=== PATIENT | male | born 1945 | race Caucasian/White ===

== ENCOUNTER 2021-08-22 14:14 | Inpatient (IN) | payer MEDICARE, SELFPAY ==
[2021-08-22] VITALS (8 sets, daily range): BP systolic 113–159; BP diastolic 58–89; PULSE 69–111; RESP 18–39; TEMP 35.7–38.4; O2SAT 93–98; BMI 20.3; BMI 21.2
--- NOTE | ~2021-08-22 | XR_ITS ---
XR chest 2V DATE: 08/22/2021 14:45 INDICATION: Shortness of breath. Low oxygen saturation. Tobacco user, history of COPD. TECHNIQUE: AP and lateral views COMPARISON: 12/15/2018 portable AP chest 12/11/2018 CT pulmonary scan FINDINGS: There is prominent bilateral pulmonary hyperinflation with flattening the diaphragm and inc reased retrosternal airspace, consistent with COPD. There is patchy infiltrate in the left lower lobe retrocardiac area and right basilar infiltrate and/ or atelectasis. Consider bilateral pneumonia, aspiration pneumonitis. The remaining lung gaytan are clear of consolidation. No pleural effusion or pulmonary vascular congestion or pneumothorax is detected. Normal heart size. There is aortic calcification and unfolding. Diffuse osteopenia. IMPRESSION: Left lower lobe and right basilar infiltrates and/atelectasis; consider bilateral pneumon ia, as well as aspiration pneumonitis Prominent COPD Reviewed, dictated and finalized at location A. LE PET GROOMER IMPRESSION: Left lower lobe and right basilar infiltrates and/atelectasis; cons ider bilateral pneumonia, as well as aspiration pneumonitis Prominent COPD
--- NOTE | 2021-08-22 14:23 | ECG_ITS ---
Measurements Intervals [place] Rate: 107 P: 90 [place]: 139 QRS: -49 QRSD: 78 T: 73 QT: 334 QTc: 447 Interpretive Statements SINUS TACHYCARDIA LEFT ANTERIOR FASCICULAR BLOCK CANNOT RULE OUT SEPTAL INFARCT, AGE INDETERMINATE BASELINE ARTIFACT- I, II, III, AVR, AVL, V3-V6 ABNORMAL ECG Electronically Signed On 08-23-2021 11:22:27 NANOTECHNOLOGY ENGINEERING TECHNOLOGIST by Pepe Dan D.O.
[2021-08-22 14:38] LABS: Basophils Percent Auto 0.2 % (0.2-1.2); Hematocrit 47.4 % (42.0-52.0); Hemoglobin 16.2 g/dL (14.0-18.0); Lymphocytes Absolute Auto 0.99 K/mm3 (0.9-3.2); Lymphocytes Percent Auto 9.9 % (18.3-44.2); Mean Corpuscular HGB Conc 34.2 g/dl (32-36); Mean Corpuscular Hemoglobin 29.1 pg (26-34); Mean Corpuscular Volume 85.1 fl (80-100); Mean Platelet Volume 9.9 fl (7.4-10.4); Monocytes Absolute Auto 0.7 K/mm3 (0.1-0.6); Monocytes Percent Auto 6.6 % (2.6-8.5); Neutrophils Absolute Auto 8.2 K/mm3 (1.3-6.7); Neutrophils Percent Auto 82.3 % (45.5-73.1); Platelet Count Result 252 k/mm3 (150-375); Red Blood Count 5.57 M/mm3 (4.6-6.20); Red Cell Distribution Width 14.6 % (11.5-14.5)
[2021-08-22 14:45] LABS: Lactic Acid Reflex 1.7 mmol/L (0.7-2.1)
[2021-08-22 14:47] LABS: Alanine Aminotransferase 30 U/L (4-50); Albumin Level 4.4 g/dL (3.5-5.1); Alkaline Phosphatase 91 U/L (38-126); Anion Gap 9 mmol/L (8-16); Aspartate Amino Transferase 42 U/L (17-59); Bilirubin,Total 0.9 mg/dL (0.2-1.3); Blood Urea Nitrogen 44 mg/dL (9-20); Calcium 9.5 mg/dL (8.4-10.2); Carbon Dioxide 33 mmol/L (22-30); Chloride 94 mmol/L (98-107); Estimated CRCL calculation 38 ml/min; Estimated Glomerular Filt Rate 50; Glucose 120 mg/dL (65-110); Potassium 3.9 mmol/L (3.4-5.0); Sodium 136 mmol/L (137-145)
--- NOTE | 2021-08-22 15:42 | ED.GENADULT ---
HPI - General Adult General Chief complaint: Shortness of Breath/Dyspnea Stated complaint: sob Time Seen by Provider: 08/22/21 15:24 Source: patient and family Limitations: no limitations History of Present Illness HPI narrative: 75 years old white male presents with shortness of breath over the last few days, productive cough of colored sputum, generalized weakness, poor appetite, does not take his medication lately. Patient is not vaccinated for COVID, history of COPD, smoking. Patient is DNR. Related Data Home Medications Medication Instructions Recorded Confirmed famotidine 20 mg tablet 20 mg PO DAILY 05/21/20 09/23/20 Allergies Allergy/AdvReac Type Severity Reaction Status Date / Time No Known Allergies Allergy Verified 05/28/21 11:30 Review of Systems Review of Systems: CONSTITUTIONAL: Denies fever, chills, or sweats. EYES: Denies visual changes, redness, or discharge. ENT: Denies rhinorrhea, congestion, sore throat, or otalgia. CARDIOVASCULAR: Denies chest pain, palpitations, or edema. RESPIRATORY: Denies cough or dyspnea. GASTROINTESTINAL: Denies abdominal pain, nausea, vomiting, or diarrhea. GENITOURINARY: Denies dysuria or hematuria. SKIN: Denies rash or itching. MUSCULOSKELETAL: Denies back pain, joint pain, or myalgia. NEUROLOGIC: Denies headache, numbness, or weakness. PSYCHIATRIC: Denies anxiety or depression. PMFSH Past Medical History Medical History Acute respiratory failure COPD (chronic obstructive pulmonary disease) Essential (primary) hypertension GERD without esophagitis History of kidney stones Pneumonia Tobacco abuse Social History Social History Smoking packs per day: 1 Smoking cigarettes per day: 20.0 Years smoked: 50 Smoking pack-years: 50.00 Smoking status: Current every day smoker (does not want to quit, and does not want to talk about it; 50 years 1 ppd) Tobacco type: cigarettes Second hand tobacco smoke exposure: Yes Alcohol intake: never Substance use: never Substance use type: does not use Exam Narrative: General appearance: Well-developed, well-nourished Skin: Normal color Head: Normocephalic, nontraumatic Eyes: Clear conjunctiva ENT: Oropharynx normal, ears normal, nose normal Neck: Supple, nontender Chest and respiratory: Diminution of air entry bilaterally, basal rales bilaterally Heart: Regular rate/rhythm Abdomen: Soft, nontender, no organomegaly, quiet bowel sounds Vascular: Normal peripheral pulses, normal capillary refill. Musculoskeletal: Normal range of motion, nontender back Neurologic: Alert and oriented ?3, REPORTING MANAGER is normal as tested, no gross motor deficit Course Course Emergency Course: Stable Vital Signs Vital signs: Vital Signs Temperature 38.4 C H 08/22/21 14:19 Pulse Rate 111 H 08/22/21 14:19 Respiratory Rate 39 H 08/22/21 14:19 Blood Pressure 159/89 H 08/22/21 14:19 Pulse Oximetry 95 08/22/21 14:19 Temperature 38.4 C H 08/22/21 14:19 Pulse Rate 88 08/22/21 15:55 Respiratory Rate 20 08/22/21 15:55 Blood Pressure 159/89 H 08/22/21 14:19 Pulse Oximetry 95 08/22/21 14:19 Medical Decision Making [facility] Narrative Medical decision making narrative: Work-up showed pneumonia, high likely community-acquired. Patient is not vaccinated for COVID, Covid test ordered. Differential Diagnosis Differential Diagnosis: Pneumonia, COPD exacerbation, Vital Signs Vital Signs: Vital Signs Temperature 38.4 C H 08/22/21 14:19 Pulse Rate 111 H 08/22/21 14:19 Respiratory Rate 39 H 08/22/21 14:19 Blood Pressure 159/89 H 07/26
[2021-08-22] MEDS: methylPREDNISolone SOD SUCC 125 MG VIAL 62.5 MG IV PUSH (15:48)
[2021-08-22] MEDS: ALBUTEROL SULFATE NEB 2.5 MG/0.5 ML INH 5 MG INHALATION (15:55)
[2021-08-22] MEDS: IPRATROPIUM BR 0.02% INH SOLN 0.5 MG/2.5 ML VIAL INHALATION (15:55)
[2021-08-22 16:00] LABS: Alveolar/Arterial O2 Gradient 65.5 mmHg; Base Excess ABG 6.1 mEq/l (+/-2.0); Fractional Inspired Oxygen 21 %; HCO3 ABG 27.8 mEq/l (22.0-26.0); Oxygen Content ABG 17.8 %vol (16.0-22.0); Oxygen Saturation ABG 88.2 % (95.0-100.0); PCO2 ABG 31.8 mmHg (35.0-45.0); Total Hemoglobin 15.2 g/dL (12.0-18.0)
[2021-08-22 16:02] LABS: PO2 ABG 46.2 mmHg (80.0-100.0)
[2021-08-22 16:03] LABS: Device ROOM AIR; Modified Allen's Test Pass; Oxyhemoglobin 83.7 % THb (90.0-100.0); Site Drawn RIGHT RADIAL
[2021-08-22] MEDS: ONDANSETRON INJ 4 MG/2 ML VIAL IV PUSH (16:22)
[2021-08-22] MEDS: SODIUM CHLORIDE 0.9% IV 1,000 ML 999 ML IV CONT (16:22)
[2021-08-22 16:55] LABS: SARS-CoV-2 RNA PCR Positive
--- NOTE | 2021-08-22 17:06 | PC.NURSE ---
Diamond, daughter to contact. [phone]
[2021-08-22] MEDS: SODIUM CHLORIDE 0.9% IV 1,000 ML 125 ML IV CONT (18:39)
--- NOTE | 2021-08-22 19:30 | PC.NURSE ---
Assumed care of pt at this time. Pt alert and upright on stretcher, on 2L NC. Updated on POC, No request at this time.
--- NOTE | 2021-08-22 19:55 | PM.IMHP ---
H&P: HPI History of Present Illness Date/Time: 08/22/21 19:55 this is a 75-year-old male patient has a history of COPD and continues to smoke a pack a cigarettes a day. The patient does not wear oxygen at home and does not use inhalers or nebulizers at home. The patient stated that he had a tactile fever with generalized weakness and a poor appetite. The patient feels very fatigued. He does not take any home medications. The patient is not vaccinated for COVID. Chest x-ray was read as left lower lobe and right basilar infiltrates and/or atelectasis consider bilateral pneumonia as well as aspiration pneumonitis. ABGs pH 7.560. Sodium 136. Creatinine 1.4. Patient was positive for COVID-19. The patient was initially started on azithromycin and Rocephin for pneumonia. He was given nebulizer treatments and started on Solu-Medrol. Patient also had IV fluids that I stopped. I did start remdesivir and Decadron on the patient. The patient was hypoxic down to 93 and was started on oxygen at 2 L per nasal cannula. The patient is being admitted to inpatient status on 08/22/2021. Chief Complaint: Shortness of breath Review of Systems Review of Systems: All systems reviewed & are unremarkable except as noted in HPI and below Constitutional: Constitutional: Reports as per HPI and Reports no additional constitutional complaints Eyes: Eyes: Reports as per HPI and Reports no additional eye complaints ENT: Reports system reviewed and no additional complaints, except as documented and Reports Normal hearing present Cardiovascular: Cardiovascular: Reports no additional cardiovascular complaints Respiratory: Respiratory: Reports no additional respiratory complaints and Reports no additional respiratory complaints Gastrointestinal: Gastrointestinal: Reports as per HPI and Reports no additional gastrointestinal complaints Musculoskeletal: Musculoskeletal: Reports no additional musculoskeletal complaints Integumentary/Breasts: Skin/Breast: Reports system reviewed and no additional complaints, except as docu and Reports as per HPI Neurologic: Reports system reviewed and no additional complaints, except as documented, Reports as per HPI and Reports Normal hearing present Psychiatric: Psychiatric: Reports no additional psychiatric complaints and Reports as per HPI Endocrine: Endocrine: Reports no additional endocrine complaints Hematologic/Lymphatic: Hematologic/Lymphatic: Reports no additional hematologic/lymphatic complaints Allergic/Immunologic: Allergic/Immunologic: Reports no additional allergic/immunologic complaints [facility] Past Medical History Medical History Acute respiratory failure COPD (chronic obstructive pulmonary disease) Essential (primary) hypertension GERD without esophagitis History of kidney stones Pneumonia Tobacco abuse Surgical History Surgical History H/O cataract extraction Family History Family History Mother Excessive bleeding Cancer Social History Social History (Updated 08/22/21 @ 21:08 by Cyndee Martinez NP) Social History: He lives with and she is his durable power patent prosecution attorney for healthcare. He has 4 children. He is retired from being a medical instruction for medical students. He continues to smoke at least a pack a cigarettes a day and is not interested in smoking cessation. He does not use any alcohol marijuana or illicit drugs. Code status DNR Smoking packs per day: 1 Smoking cigarettes per day: 20.0 Years smoked: 50 Smoking pack-years: 50.00 Smoking status: Current every day smoker (does not want to quit, and does not want to talk about it; 50 years 1 ppd) Tobacco type: cigarettes Second hand tobacco smoke exposure: Yes Alcohol intake: never Substance use: never Substance use type: does not use
[2021-08-22] MEDS: REMDESIVIR 200 MG/NS 250 ML 200 MG/250 ML BAG 250 MG IVPB (21:40)
--- NOTE | 2021-08-22 22:11 | ADMGEN ---
This patient, Murali Koenig, was admitted to [facility] Surg Room 328-01. Patient/family oriented to hospital policies and general routines including ID bracelet, bed and alarms, visiting hours, pain management, procedures, bathroom and other care routines, personal items, smoking policy, room service/diet, and visiting hours. Information on how to activate the Rapid Response Team has been discussed. Patient/Family are encouraged to report perceived risks to care and to ask questions if they do not understand what they are told or what they should do.
[2021-08-22 23:36] LABS: Alanine Aminotransferase 23 U/L (4-50); Estimated CRCL calculation 44 ml/min; Estimated Glomerular Filt Rate 59
[2021-08-22 23:40] LABS: Prothrombin Time 13.5 Seconds (11.1-14.7)
[2021-08-23] VITALS (11 sets, daily range): BP systolic 108–112; BP diastolic 47–56; PULSE 50–64; RESP 16–18; TEMP 35.7–36.3; O2SAT 94–99
[2021-08-23 07:24] LABS: Basophils Percent Auto 0.4 % (0.2-1.2); Hematocrit 41.5 % (42.0-52.0); Hemoglobin 13.7 g/dL (14.0-18.0); Immature Granulocyte Absolute 0.07 K/mm3 (0.00-0.031); Immature Granulocyte Percent A 1.3 % (0-0.5); Lymphocytes Absolute Auto 0.75 K/mm3 (0.9-3.2); Lymphocytes Percent Auto 13.5 % (18.3-44.2); Mean Corpuscular Hemoglobin 28.1 pg (26-34); Mean Corpuscular Volume 85.2 fl (80-100); Mean Platelet Volume 10.6 fl (7.4-10.4); Monocytes Absolute Auto 0.2 K/mm3 (0.1-0.6); Monocytes Percent Auto 2.9 % (2.6-8.5); Neutrophils Absolute Auto 4.6 K/mm3 (1.3-6.7); Neutrophils Percent Auto 81.9 % (45.5-73.1); Platelet Count Result 237 k/mm3 (150-375); Red Blood Count 4.87 M/mm3 (4.6-6.20); Red Cell Distribution Width 14.6 % (11.5-14.5); White Blood Count 5.6 K/mm3 (4.5-10.0)
[2021-08-23 07:29] LABS: INR 1.1; Prothrombin Time 13.9 Seconds (11.1-14.7)
[2021-08-23 07:30] LABS: Lactic Acid Reflex 1.1 mmol/L (0.7-2.1)
[2021-08-23 07:38] LABS: Alanine Aminotransferase 23 U/L (4-50); Albumin Level 3.3 g/dL (3.5-5.1); Alkaline Phosphatase 63 U/L (38-126); Anion Gap 5 mmol/L (8-16); Aspartate Amino Transferase 30 U/L (17-59); Bilirubin,Total 0.5 mg/dL (0.2-1.3); Blood Urea Nitrogen 44 mg/dL (9-20); Calcium 8.5 mg/dL (8.4-10.2); Carbon Dioxide 32 mmol/L (22-30); Chloride 100 mmol/L (98-107); Estimated CRCL calculation 52 ml/min; Estimated Glomerular Filt Rate > 60; Glucose 130 mg/dL (65-110); Lactate Dehydrogenase 456 U/L (313-618); Lipase 57 U/L (23-300); Magnesium 2.4 mg/dL (1.6-2.3); Potassium 3.7 mmol/L (3.4-5.0); Sodium 137 mmol/L (137-145)
[2021-08-23 08:02] LABS: Thyroid Stimulating Hormone Reflex 0.197 uIU/mL (0.465-4.68)
[2021-08-23 08:29] LABS: Free T4 Free Thyroxine Reflex 1.76 ng/dL (0.78-2.19)
[2021-08-23] MEDS: FLUTICASONE/UMECLIDIN/VILANTER 100-62.5-25 MCG ELLIPTA 1 PUFF INHALATION (08:40)
[2021-08-23] MEDS: ENOXAPARIN 40 MG/0.4 ML SYRINGE SUB-Q (08:45)
[2021-08-23] MEDS: FAMOTIDINE 20 MG TABLET PO (08:45)
[2021-08-23] MEDS: hydroCHLOROthiazide 25 MG TABLET BY MOUTH (08:46)
[2021-08-23 09:28] LABS: Total Triiodothyronine (T3) 0.87 NG/ML (0.97-1.69)
--- NOTE | 2021-08-23 11:31 | PCCCNOTE ---
On 08/23/21, the student, [Briana Sosa], provided care and completed [facility] on this patient. I have reviewed the student's documentation and agree with the findings.
--- NOTE | 2021-08-23 16:37 | PM.IMPN ---
Progress Note: A&P Assessment and Plan (1) COVID: Code(s): U07.1 - COVID-19 Status: Acute Assessment and Plan: I did start the patient on Decadron oxygen and albuterol inhaler. (2) Pneumonia: Qualifiers: Laterality: bilateral Lung location: unspecified part of lung Pneumonia type: due to unspecified organism Qualified Code(s): J18.9 - Pneumonia, unspecified organism Code(s): J18.9 - Pneumonia, unspecified organism Status: Acute Assessment and Plan: Patient initially was started on azithromycin and Rocephin for the possibility of a bacterial pneumonia. However the patient tested positive for COVID-19. (3) COPD (chronic obstructive pulmonary disease): Qualifiers: COPD type: unspecified COPD Qualified Code(s): J44.9 - Chronic obstructive pulmonary disease, unspecified Code(s): J44.9 - Chronic obstructive pulmonary disease, unspecified Status: Acute Assessment and Plan: Continue with patient's home inhalers. Add albuterol inhaler as well. Pt is a smoker does not want nicotine patch (4) Tobacco abuse: Code(s): Z72.0 - Tobacco use Status: Acute Assessment and Plan: We discussed smoking cessation for approximately 5 minute and the patient is not interested in any smoking cessation at this time. (5) Essential (primary) hypertension: Code(s): I10 - Essential (primary) hypertension Status: Acute Assessment and Plan: Continue with home medication. Subjective Date/time seen: 08/23/21 16:37 Interval history: 75-year-old male patient has a history of COPD and continues to smoke a pack a cigarettes a day. The patient does not wear oxygen at home and does not use inhalers or nebulizers at home. The patient stated that he had a tactile fever with generalized weakness and a poor appetite. The patient feels very fatigued. He does not take any home medications. The patient is not vaccinated for COVID. Chest x-ray was read as left lower lobe and right basilar infiltrates and/or atelectasis consider bilateral pneumonia as well as aspiration pneumonitis. ABGs pH 7.560. Sodium 136. Creatinine 1.4. Patient was positive for COVID-19 08/23/2021: pt is feeling better on 2 liters of oxygen pt is a heavy smoker but he garcia not want a nicotine patch Review of Systems Review of Systems: All systems reviewed & are unremarkable except as noted in HPI and below Exam Const: General: tired appearing and other (Fatigued on 2 liters of oxygen ) HENMT: Head: normal to inspection Resp: Effort & Inspection: no respiratory distress Auscultation: no rhonchi and no wheezes Cardio: Rate: regular rate Rhythm: regular rhythm GI: Inspection: normal to inspection GI Palp: No abdominal tenderness, No Guarding due to palpation present (GI) and No Hepatomegaly present Auscultation: normal bowel sounds Neuro: General: oriented to person Objective Data Vital Signs Vital Signs: Vital Signs - 24 hr 08/22/21 17:07 08/22/21 18:09 08/22/21 19:30 Temperature 36.9 C Pulse Rate 90 86 75 Respiratory Rate 18 25 H 26 H Blood Pressure 118/62 113/74 114/61 Pulse Oximetry 95 98 98 08/22/21 22:00 08/23/21 00:00 08/23/21 04:42 Temperature 35.7 C L 36.2 C L Pulse Rate 69 64 Respiratory Rate 18 16 Blood Pressure 116/58 L 108/47 L Pulse Oximetry 93 94 94 08/23/21 05:01 08/23/21 08:00 08/23/21 12:30 Temperature 35.7 C L 35.9 C L 36.3 C L Pulse Rate 57 L 56 L 59 L Respiratory Rate 16 18 18 Blood Pressure 108/54 L 109/54 L 112/54 L Pulse Oximetry 98 94 99 Intake/Output Intake/Output: Intake & Output 08/20/21 08/21/21 08/22/21 08/23/21 23:59 23:59 23:59 23:59 Intake Total 1300 580 Output Total 425 Balance 1300 155 Meds/Results Medications: Active Medications Generic Name Dose Route Start Last Admin Trade Name Freq PRN Reason Stop Dose Admin Albuterol 2 puff 08/22/21 19:55 Albuterol Sulfate
[2021-08-24] VITALS (15 sets, daily range): BP systolic 106–126; BP diastolic 54–64; PULSE 52–76; RESP 15–18; TEMP 36–37; O2SAT 86–98
[2021-08-24] MEDS: REMDESIVIR 100 MG/NS 250 ML 100 MG/250 ML BAG 250 MG IVPB (00:09)
[2021-08-24 07:09] LABS: Alanine Aminotransferase 22 U/L (4-50); Estimated CRCL calculation 57 ml/min; Estimated Glomerular Filt Rate > 60
[2021-08-24 07:22] LABS: INR 1.1; Prothrombin Time 14.5 Seconds (11.1-14.7)
[2021-08-24] MEDS: ENOXAPARIN 40 MG/0.4 ML SYRINGE SUB-Q (08:53)
[2021-08-24] MEDS: hydroCHLOROthiazide 25 MG TABLET BY MOUTH (08:53)
[2021-08-24] MEDS: FAMOTIDINE 20 MG TABLET PO (08:53)
--- NOTE | 2021-08-24 16:26 | PM.IMPN ---
Progress Note: A&P Assessment and Plan (1) COVID: Code(s): U07.1 - COVID-19 Status: Acute Assessment and Plan: I did start the patient on Decadron oxygen and albuterol inhaler. (2) Pneumonia: Qualifiers: Laterality: bilateral Lung location: unspecified part of lung Pneumonia type: due to unspecified organism Qualified Code(s): J18.9 - Pneumonia, unspecified organism Code(s): J18.9 - Pneumonia, unspecified organism Status: Acute Assessment and Plan: Patient initially was started on azithromycin and Rocephin for the possibility of a bacterial pneumonia. However the patient tested positive for COVID-19. (3) COPD (chronic obstructive pulmonary disease): Qualifiers: COPD type: unspecified COPD Qualified Code(s): J44.9 - Chronic obstructive pulmonary disease, unspecified Code(s): J44.9 - Chronic obstructive pulmonary disease, unspecified Status: Acute Assessment and Plan: Continue with patient's home inhalers. Add albuterol inhaler as well. Pt is a smoker does not want nicotine patch (4) Tobacco abuse: Code(s): Z72.0 - Tobacco use Status: Acute Assessment and Plan: We discussed smoking cessation for approximately 5 minute and the patient is not interested in any smoking cessation at this time. (5) Essential (primary) hypertension: Code(s): I10 - Essential (primary) hypertension Status: Acute Assessment and Plan: Continue with home medication. Subjective Date/time seen: 08/24/21 16:26 Interval history: 75-year-old male patient has a history of COPD and continues to smoke a pack a cigarettes a day. The patient does not wear oxygen at home and does not use inhalers or nebulizers at home. The patient stated that he had a tactile fever with generalized weakness and a poor appetite. The patient feels very fatigued. He does not take any home medications. The patient is not vaccinated for COVID. Chest x-ray was read as left lower lobe and right basilar infiltrates and/or atelectasis consider bilateral pneumonia as well as aspiration pneumonitis. ABGs pH 7.560. Sodium 136. Creatinine 1.4. Patient was positive for COVID-19 08/23/2021: pt is feeling better on 2 liters of oxygen pt is a heavy smoker but he garcia not want a nicotine patch 08/24/2021 interval history: patient with history of COPD now COVID positive patient is being treated with dexamethasone and remdesivir, patient is requiring 2 L of oxygen, patient states feeling much better, not a short of breath as when he arrived, patient remains clinically stable, will continue present managed and will monitor. Review of Systems Review of Systems: All systems reviewed & are unremarkable except as noted in HPI and below Exam Narrative: Patient is comfortable, NAD HEENT: eyes are clear and none icteric LUNGS: normal respiratory effort ABD: not distended Lower extremities: no edema SKIN: nonjaundiced Neuro: grossly intact. Objective Data Vital Signs Vital Signs: Vital Signs - 24 hr 08/23/21 17:00 08/23/21 19:18 08/23/21 20:00 Temperature 97.1 F L Pulse Rate 53 L 55 L 50 L Respiratory Rate 18 Blood Pressure 108/56 L Pulse Oximetry 99 98 08/23/21 20:01 08/23/21 20:56 08/23/21 23:30 Temperature 97.0 F L Pulse Rate 55 L Respiratory Rate 17 Blood Pressure 111/53 L Pulse Oximetry 98 98 96 08/24/21 00:00 08/24/21 04:00 08/24/21 04:36 Temperature 96.8 F L 98.6 F Pulse Rate 53 L 76 54 L Respiratory Rate 17 15 Blood Pressure 106/54 L 106/55 L Pulse Oximetry 96 96 08/24/21 05:37 08/24/21 08:00 08/24/21 08:40 Temperature 97.4 F L Pulse Rate 64 Respiratory Rate 18 Blood Pressure 123/64 Pulse Oximetry 96 95 96 08/24/21 09:00 08/24/21 09:05 08/24/21 09:09 Temperature Pulse Rate Respiratory Rate Blood Pressure Pulse Oximetry 90 86 L 90 08/24/21 12:00 Temperature 97.5 F L Pulse
[2021-08-25] VITALS (9 sets, daily range): BP systolic 128–139; BP diastolic 56–73; PULSE 58–92; RESP 15–16; TEMP 36.1–36.2; O2SAT 89–93
[2021-08-25 07:23] LABS: INR 1.2
[2021-08-25 08:18] LABS: Alanine Aminotransferase 36 U/L (4-50); Estimated CRCL calculation 57 ml/min; Estimated Glomerular Filt Rate > 60
[2021-08-25] MEDS: FAMOTIDINE 20 MG TABLET PO (09:18)
[2021-08-25] MEDS: ENOXAPARIN 40 MG/0.4 ML SYRINGE SUB-Q (09:18)
[2021-08-25] MEDS: hydroCHLOROthiazide 25 MG TABLET BY MOUTH (09:18)
--- NOTE | 2021-08-25 11:51 | PM.DS ---
DS: Admitting Diagnosis Discharge Date shortness of breath Admitting Diagnosis 08/25/2021 DS: Discharge Diagnosis Discharge Diagnosis (1) COVID: Code(s): U07.1 - COVID-19 Status: Acute Assessment and Plan: I did start the patient on Decadron oxygen and albuterol inhaler. (2) Pneumonia: Qualifiers: Laterality: bilateral Lung location: unspecified part of lung Pneumonia type: due to unspecified organism Qualified Code(s): J18.9 - Pneumonia, unspecified organism Code(s): J18.9 - Pneumonia, unspecified organism Status: Acute Assessment and Plan: Patient initially was started on azithromycin and Rocephin for the possibility of a bacterial pneumonia. However the patient tested positive for COVID-19. (3) COPD (chronic obstructive pulmonary disease): Qualifiers: COPD type: unspecified COPD Qualified Code(s): J44.9 - Chronic obstructive pulmonary disease, unspecified Code(s): J44.9 - Chronic obstructive pulmonary disease, unspecified Status: Acute Assessment and Plan: Continue with patient's home inhalers. Add albuterol inhaler as well. Pt is a smoker does not want nicotine patch (4) Tobacco abuse: Code(s): Z72.0 - Tobacco use Status: Acute Assessment and Plan: We discussed smoking cessation for approximately 5 minute and the patient is not interested in any smoking cessation at this time. (5) Essential (primary) hypertension: Code(s): I10 - Essential (primary) hypertension Status: Acute Assessment and Plan: Continue with home medication. DS: Summary Hospital Course Reason for hospitalization: this is a 75-year-old male patient has a history of COPD and continues to smoke a pack a cigarettes a day. The patient does not wear oxygen at home and does not use inhalers or nebulizers at home. The patient stated that he had a tactile fever with generalized weakness and a poor appetite. The patient feels very fatigued. He does not take any home medications. The patient is not vaccinated for COVID. Chest x-ray was read as left lower lobe and right basilar infiltrates and/or atelectasis consider bilateral pneumonia as well as aspiration pneumonitis. ABGs pH 7.560. Sodium 136. Creatinine 1.4. Patient was positive for COVID-19. The patient was initially started on azithromycin and Rocephin for pneumonia. He was given nebulizer treatments and started on Solu-Medrol. Patient also had IV fluids that I stopped. I did start remdesivir and Decadron on the patient. The patient was hypoxic down to 93 and was started on oxygen at 2 L per nasal cannula. The patient is being admitted to inpatient status on 08/22/2021. Chief Complaint: Shortness of breath Hospital Course: 08/24/2021 interval history: patient with history of COPD now COVID positive patient is being treated with dexamethasone and remdesivir, patient is requiring 2 L of oxygen, patient states feeling much better, not a short of breath as when he arrived, patient remains clinically stable, will continue present managed and will monitor. patient remains clinically stable he is not requiring any oxygen, he does not have any fever will discharge the patient home today. Time Spent with Patient Time attestation: Total time spent providing and/or coordinating discharge services: Exam Narrative: Patient is comfortable, NAD HEENT: eyes are clear and none icteric LUNGS: normal respiratory effort ABD: not distended Lower extremities: no edema SKIN: nonjaundiced Neuro: grossly intact. DS: Data Data Completed and Pending Labs on day of discharge: Labs from last 24 hours 08/25/21 08/25/21 06:44 06:44 PT 15.0 H INR 1.2 Creatinine 0.90 Estim Creat Clear Calc 57 Estimated GFR > 60 ALT 36 Preliminary micro results at discharge 08/22/21 14:29 Blood Culture - Preliminary Blood 08/22/21 14:40 Blood Culture - Preliminary Bloo
--- NOTE | 2021-08-25 11:51 | HOMEO2EVAL ---
Evaluation was performed at [facility] Home Oxygen Evaluation RC: Home Oxygen (O2) Evaluation Start: 08/25/21 10:27 Freq: ONCE Status: Active Protocol: RPE Activity Type Activity Date Activity User E-Sign Co-Sign Detail Recorded Client Recorded Date Recorded By Document 08/25/21 11:45 KRM [id number] 08/25/21 11:51 KRM Document 08/25/21 11:46 KRM [id number] 08/25/21 11:51 KRM Document 08/25/21 11:49 KRM [email or web address] 08/25/21 11:51 KRM 08/25/21 08/25/21 08/25/21 11:45 11:46 11:49 Home O2 Evaluation Test Phase Resting Exercise Exercise Oxygen Delivery Room Air Room Air Room Air Pulse Oximetry (90-100 %) 91 90 89 L Pulse Rate (60-100 beats/min) 78 79 80 Activity Tolerance Good Good Treatment Charges O2 Evaluation - Inpatient
== END 2021-08-25 15:30 | disposition home or self-care (01) | DRG 177 ==
LOC: ANHED 15:52 → ANH3MEDSUR 08-23 00:09
PROVIDERS: Nurse Practitioner; Admitting Provider Hospitalist; Emergency Provider Emergency Medicine; PCP Family Medicine; Visit Provider Family Medicine
DX: U07.1 COVID-19 (principal); J12.82 Pneumonia due to coronavirus disease 2019; J44.0 Chronic obstructive pulmonary disease with (acute) lower respiratory infection; R09.02 Hypoxemia; I10 Essential (primary) hypertension; K21.9 Gastro-esophageal reflux disease without esophagitis; F17.210 Nicotine dependence, cigarettes, uncomplicated; Z66 Do not resuscitate
CPT/HCPCS: 36415; 36600; 71046; 80053; 82565; 82728; 82805; 83605; 83615; 83690; 83735; 84439; 84443; 84460; 84480; 85025; 85610; 87040; 93005; 94618; 94640; 99285; A9270; C9803; J0456; J0696; J1100; J1650; J2405; J2930; J7030; U0003; U0005

== ENCOUNTER 2022-11-10 08:29 | Outpatient (CLI) | payer MEDICARE, SELFPAY | END 2022-11-10 08:30 | disposition home or self-care (01) | LOC: ANHGOSHLAB 08:30 | PROVIDERS: PCP Family Medicine; Visit Provider Family Medicine | DX: E53.8 Deficiency of other specified B group vitamins (principal) | CPT/HCPCS: 36415; 82607 ==

== ENCOUNTER 2023-06-27 16:23 | Emergency (ER) | payer MEDICARE, SELFPAY ==
--- NOTE | ~2023-06-27 | XR_ITS ---
EXAMINATION: XR chest 1V portable Exam Date/Time: 06/27/2023 22:25 [employer] HISTORY: cough, SOB Comparison: 08/22/2021. RESULT: Lines, tubes, and devices: None. Lungs and pleura: Emphysematous changes. Ill-defined hazy subsegmental opacities in the left lower l gloria. Cardiomediastinal silhouette: Stable. Other: No acute osseous or upper abdominal finding. IMPRESSION: Subsegmental left lower lung atelectasis or consolidation. Reviewed, dictated and finalized at location [facility]. 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
[2023-06-27 16:32] VITALS: BP 170/82; PULSE 86; RESP 20; TEMP 36.2; O2SAT 96
--- NOTE | 2023-06-27 21:26 | ED.SOB ---
HPI - SOB/Dyspnea General Chief Complaint: Shortness of Breath/Dyspnea Stated Complaint: SHORT OF BREATH X4DAYS Time Seen by Provider: 06/27/23 21:18 History of Present Illness HPI Narrative: Patient is a 77-year-old male with history of COPD, hypertension presenting with shortness of breath. Patient states that he has had increasing shortness of breath as well as a productive cough for the last 3-4 days. States that it feels like his COPD. He has been using his inhalers with temporary improvement. States that the last time this happened it turned into pneumonia so he did not want to wait that long this time. He denies any pain. No leg swelling. No fevers or chills. No nausea or vomiting. No further complaints. Related Data Home Medications Medication Instructions Recorded Confirmed famotidine 20 mg tablet (Pepcid AC) 20 mg PO DAILY PRN 10/03/22 06/01/23 Allergies Allergy/AdvReac Type Severity Reaction Status Date / Time No Known Allergies Allergy Verified 06/01/23 09:09 Review of Systems Review of Systems: All systems reviewed & are unremarkable except as noted in HPI and below PMFSH Past Medical History Medical History Acute respiratory failure (~04/2020) B12 deficiency COPD (chronic obstructive pulmonary disease) Essential (primary) hypertension GERD without esophagitis History of COVID-19 (~08/2021) History of kidney stones Tobacco abuse Surgical History Surgical History H/O cataract extraction (~2018) Family History Family History Mother Excessive bleeding Cancer Social History Social History Social History: He lives with and she is his durable power ip attorney for healthcare. He has 4 children. He is retired from being a medical instruction for medical students. He continues to smoke at least a pack a cigarettes a day and is not interested in smoking cessation. He does not use any alcohol marijuana or illicit drugs. Code status DNR Smoking packs per day: 1 Smoking cigarettes per day: 20.0 Years smoked: 50 Smoking pack-years: 50.00 Smoking status: Current every day smoker Second hand tobacco smoke exposure: Yes Alcohol intake: never Substance use: never Substance use type: does not use Lack of Transportation: No Lack of Food: Never True Current Housing: I Have Housing Concerned About Future Housing: No Difficulty Paying Gas/Electric Bills: No Difficulty Paying for Meds: No Currently Unemployed: No Education: High School Diploma/GED Difficulty w/ Childcare or Family Care: No Living arrangements: with family Additional living arrangements comments: Occupation/Education: retired Gender identity (if verbalized by the patient): Male Sexual Orientation (if Verbalized by the Patient): Straight or Heterosexual Spiritual care concerns: No Exam Narrative: GENERAL: Nontoxic, no acute distress, pleasant cooperative HEAD: Normocephalic, atraumatic. EYES: PERRLA and EOMI. ENT: Mucous membranes moist. NECK: Supple. CHEST: diffuse wheezing in all gaytan with crackles in the bases, +productive cough HEART: Regular rate and rhythm ABDOMEN: nondistended EXTREMITIES: Normal range of motion. No edema. SKIN: Warm, dry, no rash. NEURO: Alert and oriented x3. PSYCH: Normal mood and affect. Course Vital Signs Vital signs: Vital Signs Temperature 97.1 F L 06/27/23 16:32 Pulse Rate 86 06/27/23 16:32 Respiratory Rate 20 06/27/23 16:32 Blood Pressure 170/82 H 06/27/23 16:32 Pulse Oximetry 96 06/27/23 16:32 Oxygen Delivery Room Air 06/27/23 16:32 Temperature 97.5 F L 06/28/23 00:48 Pulse Rate 92 06/28/23 00:48 Respiratory Rate 22 H 06/28/23 00:48 Blood Pressure
[2023-06-27 21:27] VITALS: PULSE 81; O2SAT 96
[2023-06-27 21:28] VITALS: BP 179/86; PULSE 82; RESP 22; TEMP 36.6; O2SAT 98
[2023-06-27] MEDS: IPRATROPIUM BR 0.02% INH SOLN 0.5 MG/2.5 ML VIAL INHALATION (21:41)
[2023-06-27] MEDS: ALBUTEROL SULFATE NEB 2.5 MG/3 ML INH 10 MG INHALATION (21:41)
[2023-06-27 21:42] VITALS: PULSE 71; RESP 17
[2023-06-27] MEDS: methylPREDNISolone SOD SUCC 125 MG VIAL IV PUSH (21:43)
[2023-06-27] MEDS: SODIUM CHLORIDE 0.9% IV 1,000 ML 999 ML IV CONT (21:43)
[2023-06-27 22:02] LABS: Basophils Percent Auto 0.4 % (0.2-1.2); Eosinophils Absolute Auto 0.1 K/mm3 (0-0.3); Eosinophils Percent Auto 1.9 % (0-4.4); Hematocrit 47.7 % (42.0-52.0); Hemoglobin 15.3 g/dL (14.0-18.0); Immature Granulocyte Absolute 0.04 K/mm3 (0.00-0.031); Immature Granulocyte Percent A 0.5 % (0-0.5); Lymphocytes Absolute Auto 1.83 K/mm3 (0.9-3.2); Lymphocytes Percent Auto 24.3 % (18.3-44.2); Mean Corpuscular HGB Conc 32.1 g/dl (32-36); Mean Corpuscular Hemoglobin 28.9 pg (26-34); Mean Corpuscular Volume 90.2 fl (80-100); Mean Platelet Volume 9.7 fl (7.4-10.4); Monocytes Absolute Auto 0.6 K/mm3 (0.1-0.6); Monocytes Percent Auto 7.4 % (2.6-8.5); Neutrophils Absolute Auto 4.9 K/mm3 (1.3-6.7); Neutrophils Percent Auto 65.5 % (45.5-73.1); Platelet Count Result 254 k/mm3 (150-375); Red Blood Count 5.29 M/mm3 (4.6-6.20); Red Cell Distribution Width 13.9 % (11.5-14.5); White Blood Count 7.5 K/mm3 (4.5-10.0)
[2023-06-27 22:08] VITALS: BP 129/59; PULSE 83; RESP 23; O2SAT 99
[2023-06-27 22:13] LABS: Anion Gap 11 mmol/L (8-16); Blood Urea Nitrogen 27 mg/dL (9-20); Calcium 9.8 mg/dL (8.4-10.2); Carbon Dioxide 28 mmol/L (22-30); Chloride 100 mmol/L (98-107); Estimated CRCL calculation 38 ml/min; Estimated Glomerular Filt Rate 59; Glucose 99 mg/dL (65-110); Potassium 3.8 mmol/L (3.4-5.0); Sodium 139 mmol/L (137-145)
[2023-06-27 22:38] LABS: Influenza A QL RT-PCR Negative (Negative); Influenza B QL RT-PCR Negative (Negative); RSV RNA, RT-PCR Negative (Negative); SARS-CoV-2 RNA PCR Negative (Negative)
[2023-06-28 00:04] VITALS: PULSE 92; RESP 18; O2SAT 90
[2023-06-28 00:15] VITALS: PULSE 90; RESP 18; O2SAT 90
[2023-06-28 00:16] VITALS: BP 126/65; PULSE 93; RESP 16; O2SAT 90
[2023-06-28 00:30] VITALS: PULSE 99; RESP 22; O2SAT 92
[2023-06-28 00:31] VITALS: BP 147/72; PULSE 96; RESP 23; O2SAT 93
[2023-06-28] MEDS: AMOXICILLIN/CLAVULANATE K 875-125 MG TAB 1 TABLET PO (00:47)
[2023-06-28 00:48] VITALS: BP 147/72; PULSE 92; RESP 22; TEMP 36.4; O2SAT 92
[2023-06-28] MEDS: DOXYCYCLINE HYCLATE 100 MG TABLET PO (00:48)
== END 2023-06-28 00:49 | disposition home or self-care (01) ==
PROVIDERS: Emergency Provider Emergency Medicine; PCP Family Medicine
DX: J44.1 Chronic obstructive pulmonary disease with (acute) exacerbation (principal); J18.9 Pneumonia, unspecified organism; Z20.822 Contact with and (suspected) exposure to COVID-19; F17.210 Nicotine dependence, cigarettes, uncomplicated; I10 Essential (primary) hypertension; K21.9 Gastro-esophageal reflux disease without esophagitis; Z87.442 Personal history of urinary calculi
CPT/HCPCS: 36415; 71045; 80048; 85025; 87637; 94640; 96361; 96374; 99284; A9270; J2930; J7030

== ENCOUNTER 2023-11-30 08:01 | Inpatient (IN) | payer MEDICARE, SELFPAY ==
[2023-11-30] VITALS (30 sets, daily range): BP systolic 125–169; BP diastolic 60–93; PULSE 81–104; RESP 13–35; TEMP 35.6–36.8; O2SAT 88–99
--- NOTE | ~2023-11-30 | CT_ITS ---
EXAMINATION: CTA chest PE protocol DATE: 12/03/2023 11:33 INDICATION: Shortness of breath TECHNIQUE: Computed tomography angiography (CTA) of the chest was performed with 100 mL Omnipaque-350 intravenous contrast timed to evaluate the pulmonary arteries. Coronal maximum intensity projection 3D-reconstructions were created by the technologist. Automated exposure control and iterative reconst ruction technique were employed. Exam dose: 202.69 mGy-cm total exam DLP. COMPARISON: 12/03/2023 portable AP chest 12/11/2018 CTA chest FINDINGS: There is diagnostic contrast enhancement of pulmonary arteries and no evidence of pulmonary embolism. There is extensive atherosclerotic calcification of the thoracic and abdominal aorta as well as great vessels and coronary arteries, celiac, superior mesenteric and renal arteries. No thoracic or abdomi nal aortic aneurysm or dissection. Normal heart size. No pericardial or pleural effusion. Prominent emphysematous changes of the lungs Minimal dependent atelectasis in the left upper lobe 8.7 mm nodular density at the posterolateral left costophrenic gutter, left lower lobe. 6 month follo w-up CT chest is recommended. Right the lobe and adjacent anterior segment right lower lobe. There is infiltrate, atelectasis and/or scarring in the right lower lobe. Stable prominent posterior hepatic dome cyst 12/11/2018. Included skeletal structures are unremarkable. IMPRESSION: No evidence of pulmonary embolism Prominent emphysematous changes Recommend 6 month follow-up CT with attention to approximately 8.7 mm nodular density at posterolater al left costophrenic gutter, left lower lobe Occasional areas of infiltrate or atelectasis in the dependent left upper lobe, middle lobe and right lower lobe Reviewed, dictated and finalized at Location [facility]. Reviewed, dictated and finalized at location A. IMPRESSION: No evidence of pulmonary embolism Prominent emphysematous changes Recommend 6 month follow-up CT with attention to approximately 8.7 mm nodular d ensity at posterolateral left costophrenic gutter, left lower lobe Occasional areas of infiltrate or atelectasis in the dependent left upper lobe, middle lobe and right lower lobe
--- NOTE | ~2023-11-30 | XR_ITS ---
XR chest 1V portable DATE: 12/03/2023 10:45 INDICATION: Dyspnea on exertion TECHNIQUE: 2 portable upright AP views on 12/03/2023 at 1042 hours COMPARISON: 11/30/2023 2 view chest FINDINGS: There is mild patchy infiltrate and/or atelectasis in the lower lung zones, right greater t nuñez left. Bilateral hyperinflation with relative flattening of the diaphragm, consistent with COPD. Heart size is within normal range. His aortic calcification and mild unfolding. The central pulmonary arteries are prominent suggesting possible pulmonary hypertension. No hilar or mediastinal lymphadenopathy or mass lesion is noted. No pleural effusion or pulmonary vascular congestion or pneumothorax. The included skeletal structures appear unremarkable other than osteopenia. IMPRESSION: Mild infiltrate or atelectasis at the lung bases, greater on the right Emphysema Aortic atherosclerosis Reviewed, dictated and finalized at location A. IMPRESSION: Mild infiltrate or atelectasis at the lung bases, greater on the ri ght Emphysema Aortic atherosclerosis
--- NOTE | ~2023-11-30 | XR_ITS ---
EXAMINATION: XR chest 2V DATE: 11/30/2023 08:28 INDICATION: Dyspnea. TECHNIQUE: Frontal and lateral views of the chest were obtained. COMPARISON: Chest single view 06/27/2023, chest CT 12/11/2018 FINDINGS: The lungs are hyperexpanded, consistent with emphysema. A calcified right lung nodule is co nsistent with old granulomatous disease. There is mild atelectasis in right lower lung zone. No pleur al effusion or pneumothorax. The heart size is normal. IMPRESSION: 1. Mild atelectasis in right lower lung zone. 2. Emphysema. Reviewed, dictated and finalized at location A.
--- NOTE | ~2023-11-30 | XR_ITS ---
EXAMINATION: XR chest 1V portable DATE: 12/05/2023 08:36 INDICATION: Shortness of breath. TECHNIQUE: A single frontal view of the chest was obtained on 2 radiographs. COMPARISON: Chest single view 12/03/2023, 06/27/2023, chest CT 12/03/2023 FINDINGS: There are lucencies and interstitial opacities in the lungs, consistent with emphysema. No pleural effusion or pneumothorax. The heart size is normal. IMPRESSION: 1. Severe emphysema. Reviewed, dictated and finalized at location A. IMPRESSION: 1. Severe emphysema.
--- NOTE | 2023-11-30 08:10 | ECG_ITS ---
SEE SCANNED COPY FOR CONFIRMED REPORT MTDD
[2023-11-30 08:24] LABS: Basophils Percent Auto 0.6 % (0.2-1.2); Eosinophils Absolute Auto 0.1 K/mm3 (0-0.3); Eosinophils Percent Auto 1.1 % (0-4.4); Hematocrit 51.7 % (42.0-52.0); Hemoglobin 16.8 g/dL (14.0-18.0); Immature Granulocyte Absolute 0.02 K/mm3 (0.00-0.031); Immature Granulocyte Percent A 0.3 % (0-0.5); Lymphocytes Absolute Auto 0.94 K/mm3 (0.9-3.2); Mean Corpuscular HGB Conc 32.5 g/dl (32-36); Mean Corpuscular Hemoglobin 29.5 pg (26-34); Mean Corpuscular Volume 90.9 fl (80-100); Mean Platelet Volume 9.8 fl (7.4-10.4); Monocytes Absolute Auto 0.6 K/mm3 (0.1-0.6); Monocytes Percent Auto 9.7 % (2.6-8.5); Neutrophils Absolute Auto 4.6 K/mm3 (1.3-6.7); Neutrophils Percent Auto 73.3 % (45.5-73.1); Platelet Count Result 212 k/mm3 (150-375); Red Blood Count 5.69 M/mm3 (4.6-6.20); Red Cell Distribution Width 14.2 % (11.5-14.5); White Blood Count 6.3 K/mm3 (4.5-10.0)
[2023-11-30] MEDS: IPRATROPIUM BR 0.02% INH SOLN 0.5 MG/2.5 ML VIAL 1.5 MG INHALATION (08:34)
[2023-11-30 08:35] LABS: Alanine Aminotransferase 23 U/L (6-50); Albumin Level 4.7 g/dL (3.5-5.1); Alkaline Phosphatase 85 U/L (38-126); Anion Gap 8 mmol/L (4-12); Aspartate Amino Transferase 38 U/L (17-59); Bilirubin,Total 0.6 mg/dL (0.2-1.3); Blood Urea Nitrogen 24 mg/dL (9-20); Calcium 9.9 mg/dL (8.4-10.2); Carbon Dioxide 31 mmol/L (22-30); Chloride 102 mmol/L (98-107); Estimated CRCL calculation 49 ml/min; Estimated Glomerular Filt Rate > 60; Glucose 107 mg/dL (65-110); Potassium 3.6 mmol/L (3.4-5.0); Sodium 141 mmol/L (137-145)
[2023-11-30] MEDS: ALBUTEROL SULFATE NEB 2.5 MG/3 ML INH 15 MG INHALATION (08:35)
--- NOTE | 2023-11-30 08:42 | ED.SOB ---
HPI - SOB/Dyspnea General Chief Complaint: Shortness of Breath/Dyspnea Stated Complaint: sob Time Seen by Provider: 11/30/23 08:01 History of Present Illness HPI Narrative: Patient is a 78-year-old male who presents ER with shortness of breath. Associated with cough. Worsening over last 2-3 days. No fevers or chills. No chest pain. Has history of COPD. He still smokes. Patient found to be hypoxic on arrival. No improvement with albuterol at home. Related Data Home Medications Medication Instructions Recorded Confirmed famotidine 20 mg tablet (Pepcid AC) 20 mg PO DAILY 10/03/22 11/30/23 fluticasone fur. 100 mcg-umeclid 1 inh inhalation DAILY 11/30/23 11/30/23 62.5 mcg-vilant 25 mcg inhalat.powder (Trelegy Ellipta) Allergies Allergy/AdvReac Type Severity Reaction Status Date / Time No Known Allergies Allergy Verified 10/05/23 08:51 Review of Systems Review of Systems: All systems reviewed & are unremarkable except as noted in HPI and below Constitutional: Constitutional: Reports no additional constitutional complaints ENT: Reports system reviewed and no additional complaints, except as documented Cardiovascular: Cardiovascular: Reports no additional cardiovascular complaints Respiratory: Respiratory: Reports chest congestion, Reports cough, Reports dyspnea and Reports wheezing Gastrointestinal: Gastrointestinal: Reports no additional gastrointestinal complaints PMFSH Past Medical History Medical History Acute respiratory failure (~04/2020) B12 deficiency COPD (chronic obstructive pulmonary disease) Essential (primary) hypertension GERD without esophagitis History of COVID-19 (~08/2021) History of kidney stones Tobacco abuse Surgical History Surgical History H/O cataract extraction (~2018) Family History Family History Mother Excessive bleeding Cancer Social History Social History (Updated 10/05/23 @ 08:53 by Eli Love MA) Social History: He lives with and she is his durable power mergers and acquisitions attorney for healthcare. He has 4 children. He is retired from being a medical instruction for medical students. He continues to smoke at least a pack a cigarettes a day and is not interested in smoking cessation. He does not use any alcohol marijuana or illicit drugs. Code status DNR Smoking packs per day: 1 Smoking cigarettes per day: 20.0 Years smoked: 50 Smoking pack-years: 50.00 Smoking status: Current every day smoker Second hand tobacco smoke exposure: Yes Alcohol intake: never Substance use: never Substance use type: does not use Do You Feel Safe in your Home?: Yes Lack of Transportation: No Lack of Food: Never True Current Housing: I Have Housing Concerned About Future Housing: No Difficulty Paying Gas/Electric Bills: No Difficulty Paying for Meds: No Currently Unemployed: No Education: Master's Degree or Higher Difficulty w/ Childcare or Family Care: YES Living arrangements: with family Additional living arrangements comments: Occupation/Education: retired Gender identity (if verbalized by the patient): Male Sexual Orientation (if Verbalized by the Patient): Straight or Heterosexual Spiritual care concerns: No Agree to blood products: Yes Exam Narrative: GENERAL: Chronically ill-appearing, thin, and in no acute distress. HEAD: Normocephalic, atraumatic. ENT: Mucous membranes moist. NECK: Supple. CHEST: mild respiratory distress with coarse rales and wheezing throughout with inspiration and expiration. HEART: Regular rate and rhythm. Normal peripheral pulses. ABDOMEN: Soft, nontender, nondistended. EXTREMITIES: Normal range of motion. No edema. SKIN: Warm, dry, no rash. NEURO: Alert and oriented x3. PSYCH: Normal mood and affect. Cours
[2023-11-30] MEDS: methylPREDNISolone SOD SUCC 125 MG VIAL IV PUSH (09:30)
--- NOTE | 2023-11-30 10:45 | PC.NURSE ---
MD Escalera notified of patient walking O2 assessment. patient dropped to 87% on room and stated he was too SOB to continue to walk. patient assisted back to room in wheelchair.
[2023-11-30] MEDS: IPRATROPIUM 0.5 MG/ALBUTEROL SULFATE 2.5 MG AMPUL.NEB 3 ML INHALATION ×2 (13:14→19:44)
--- NOTE | 2023-11-30 13:42 | PM.IMHP ---
H&P: HPI History of Present Illness Date/Time: 11/30/23 19:40 Chief Complaint: Shortness of Breath Narrative: 78 y/o M presents here with shortness of breath and congestion with PMH of COPD, HTN, GERD, and tobacco use. Patient presents here from home for further evaluation of shortness of breath and congestion that started on Monday, 11/25 Shortness of breath has been constant and worsens with exertion. Does not worsen with laying flat. Arrived tachypneic, unable to to complete sentences due to dyspnea, and labored. Sat was 88% on room air, increased to 98% on 2L nasal cannula. Denies fever, chills, and body aches. Has dry cough at baseline, denies any changes to volume of coughing and remains dry. Current tobacco use, smokes 1 ppd x 50 years. No interest in cessation. Initial VS at presentation: 98.2? F, HR 89, R 35, 169/93, and 88% on RA. ED workup showed: No leukocytosis, no anemia, no significant electrolyte derangements, creatinine 0.9 and GFR >60. CXR showed mild atelectasis and emphysema. Review of Systems Review of Systems: All systems reviewed & are unremarkable except as noted in HPI and below [facility] Past Medical History Medical History Acute respiratory failure (~04/2020) B12 deficiency COPD (chronic obstructive pulmonary disease) Environmental allergies Essential (primary) hypertension GERD without esophagitis History of COVID-19 (~08/2021) History of kidney stones Tobacco abuse Surgical History Surgical History H/O cataract extraction (~2018) Family History Family History Mother Excessive bleeding Cancer Social History Social History Social History: He lives with and she is his durable power title attorney for healthcare. He has 4 children. He is retired from being a medical instruction for medical students. He continues to smoke at least a pack a cigarettes a day and is not interested in smoking cessation. He does not use any alcohol marijuana or illicit drugs. Code status DNR Smoking packs per day: 1 Smoking cigarettes per day: 20.0 Years smoked: 50 Smoking pack-years: 50.00 Smoking status: Current every day smoker Second hand tobacco smoke exposure: Yes Alcohol intake: never Substance use: never Substance use type: does not use Do You Feel Safe in your Home?: Yes Lack of Transportation: No Lack of Food: Never True Current Housing: I Have Housing Concerned About Future Housing: No Difficulty Paying Gas/Electric Bills: No Difficulty Paying for Meds: No Currently Unemployed: No Education: Master's Degree or Higher Difficulty w/ Childcare or Family Care: YES Living arrangements: with family Additional living arrangements comments: Occupation/Education: retired Gender identity (if verbalized by the patient): Male Sexual Orientation (if Verbalized by the Patient): Straight or Heterosexual Spiritual care concerns: No Agree to blood products: Yes Meds Home Medications and Allergies Home Medications Medication Instructions Recorded Confirmed Type famotidine 20 mg tablet (Pepcid AC) 20 mg PO DAILY 10/03/22 11/30/23 History inhalational spacing device #10 ea 11/24/22 06/01/23 Rx (Aerochamber Plus Flow-Vu) albuterol sulfate 1.25 mg/3 mL 1.25 mg (3 mL) inhalation QID PRN 10/05/23 11/30/23 Rx solution for nebulization shortness of breath or wheezing #360 mL albuterol sulfate 90 mcg/actuation 1 - 2 puff inhalation Q6H PRN 10/05/23 11/30/23 Rx aerosol inhaler shortness of breath or wheezing #8.5 grams hydrochlorothiazide 25 mg tablet 25 mg PO DAILY #90 tabs 11/06/23 11/30/23 Rx fluticasone fur. 100 mcg-umeclid 1 inh inhalation DAILY 11/30/23 11/30/23 History 62.5 mcg-vilant 25 mcg inhala
--- NOTE | 2023-11-30 13:51 | ADMGEN ---
This patient, Murali Koenig, was admitted to Medical Room 249-01. Patient/family oriented to hospital policies and general routines including ID bracelet, bed and alarms, visiting hours, pain management, procedures, bathroom and other care routines, personal items, smoking policy, room service/diet, and visiting hours. Information on how to activate the Rapid Response Team has been discussed. Patient/Family are encouraged to report perceived risks to care and to ask questions if they do not understand what they are told or what they should do.
[2023-11-30 14:51] LABS: Influenza A QL RT-PCR Negative (Negative); Influenza B QL RT-PCR Negative (Negative); RSV RNA, RT-PCR Negative (Negative); SARS-CoV-2 RNA PCR Negative (Negative)
[2023-11-30] MEDS: methylPREDNISolone SOD SUCC 125 MG VIAL 60 MG IV PUSH ×2 (14:59→21:05)
[2023-12-01] VITALS (12 sets, daily range): BP systolic 131–144; BP diastolic 66–70; PULSE 78–90; RESP 17–22; TEMP 34.7–36.7; O2SAT 90–93
[2023-12-01] MEDS: IPRATROPIUM 0.5 MG/ALBUTEROL SULFATE 2.5 MG AMPUL.NEB 3 ML INHALATION ×4 (02:47→20:32)
[2023-12-01] MEDS: methylPREDNISolone SOD SUCC 125 MG VIAL 60 MG IV PUSH ×4 (04:53→20:20)
[2023-12-01 04:56] LABS: Hematocrit 44.9 % (42.0-52.0); Hemoglobin 14.6 g/dL (14.0-18.0); Immature Granulocyte Absolute 0.02 K/mm3 (0.00-0.031); Immature Granulocyte Percent A 0.7 % (0-0.5); Lymphocytes Absolute Auto 0.59 K/mm3 (0.9-3.2); Lymphocytes Percent Auto 19.6 % (18.3-44.2); Mean Corpuscular HGB Conc 32.5 g/dl (32-36); Mean Corpuscular Hemoglobin 29.1 pg (26-34); Mean Corpuscular Volume 89.6 fl (80-100); Mean Platelet Volume 10.2 fl (7.4-10.4); Monocytes Absolute Auto 0.1 K/mm3 (0.1-0.6); Neutrophils Absolute Auto 2.3 K/mm3 (1.3-6.7); Neutrophils Percent Auto 76.7 % (45.5-73.1); Platelet Count Result 200 k/mm3 (150-375); Red Blood Count 5.01 M/mm3 (4.6-6.20); Red Cell Distribution Width 13.9 % (11.5-14.5)
[2023-12-01 05:08] LABS: Alanine Aminotransferase 20 U/L (6-50); Alkaline Phosphatase 71 U/L (38-126); Anion Gap 7 mmol/L (4-12); Aspartate Amino Transferase 28 U/L (17-59); Bilirubin,Total 0.5 mg/dL (0.2-1.3); Blood Urea Nitrogen 29 mg/dL (9-20); Calcium 9.5 mg/dL (8.4-10.2); Carbon Dioxide 25 mmol/L (22-30); Chloride 104 mmol/L (98-107); Estimated CRCL calculation 44 ml/min; Estimated Glomerular Filt Rate > 60; Glucose 138 mg/dL (65-110); Potassium 3.8 mmol/L (3.4-5.0); Sodium 136 mmol/L (137-145)
[2023-12-01] MEDS: hydroCHLOROthiazide 25 MG TABLET PO ×2 (05:20→20:47)
[2023-12-01] MEDS: FLUTICASONE PROP 110 MCG INHALER 12 GM (*SP) 2 PUFF INHALATION ×2 (07:02→20:32)
--- NOTE | 2023-12-01 07:50 | PM.IMPN ---
Progress Note: A&P Assessment and Plan (1) Hypoxia: Code(s): R09.02 - Hypoxemia Status: Acute Assessment and Plan: - CXR: 1. Mild atelectasis in right lower lung zone. 2. Emphysema. - viral PCR - sputum culture - not on oxygen currently - supportive care - suspect COPD exacerbation (2) COPD exacerbation: Code(s): J44.1 - Chronic obstructive pulmonary disease with (acute) exacerbation Status: Acute Assessment and Plan: - DuoNeb Q6H CRISTAL - solumedrol 50 mg Q6H - hold home trelegy inhaler due to cristal duonebs, continue as fluticasone 2 puffs q.12 - no abx in last 90 days - will start levofloxacin - continue supplemental O2, wean as appropriate-on RA currently (3) Essential (primary) hypertension: Code(s): I10 - Essential (primary) hypertension Status: Chronic Assessment and Plan: - chronic, currently 138/70 - continue home medications: HCTZ - monitor (4) Tobacco abuse: Code(s): Z72.0 - Tobacco use Status: Acute Assessment and Plan: smoking cessacion provided-not interested in quitting Plan Here with shortness of breath and congestion. Suspected COPD exacerbation. Started on steroid course, levofloxacin, and scheduled nebs. No pneumonia on imaging. Diet: heart healthy GI Prophylaxis: not indicated DVT Prophylaxis: SCDs Lines: peripheral Code Status: full code Time Spent With Patient Time with patient: 15 - 25 minutes Subjective Date/time seen: 12/01/23 07:50 Interval history: 78 y/o M presents here with shortness of breath and congestion with PMH of COPD, HTN, GERD, and tobacco use. Patient presents here from home for further evaluation of shortness of breath and congestion that started on Monday, 11/25 Shortness of breath has been constant and worsens with exertion. Does not worsen with laying flat.? Arrived tachypneic, unable to? to complete sentences due to dyspnea, and labored.? Sat was 88% on room air, increased to 98% on 2L nasal cannula. Denies fever, chills, and body aches. Has dry cough at baseline, denies any changes to volume of coughing and remains dry.? Current tobacco use, smokes 1 ppd x 50 years. No interest in cessation. Initial VS at presentation: 98.2? F, HR 89, R 35, 169/93, and 88% on RA. ED workup showed: ? No leukocytosis, no anemia, no significant electrolyte derangements, creatinine 0.9 and GFR >60.? CXR showed mild atelectasis and emphysema. 11/30- examines at the bedside. He is in up to the chair, alert, in no resp distress, on room air. Still gets SOB with activity but overall feels better. Review of Systems Review of Systems: All systems reviewed & are unremarkable except as noted in HPI and below Respiratory: Respiratory: Reports dyspnea on exertion Gastrointestinal: Gastrointestinal: Denies abdominal pain Genitourinary: Genitourinary: Denies hematuria Musculoskeletal: Musculoskeletal: Denies arthralgias and Denies joint swelling Psychiatric: Psychiatric: Denies anxiety Exam Narrative: expieratory wheeze, no crackles. remains slightly tachypneic. +tachy. Const: General: comfortable and no acute distress Other: , male, nontoxic appearance HENMT: Face/Nose/Sinus: Normal nares present Mouth: Yes moist mucous membranes Other: neb in place during exam Eyes: General: appearance normal, both eyes and all related structures Sclera: sclerae normal Pupils: Equal, round and reactive pupils present EOM: EOMs intact bilaterally Resp: Other: expiratory wheeze, no crackles. remains slightly tachypneic without accessory muscle use. Cardio: Rate: tachycardic Rhythm: regular rhythm Other: +murmur (known to patient) Skin: General skin exam: normal color and no rashes or lesions noted Wounds: no wounds Neuro: Cranial nerves: Yes Equal, round and reactive pupils present Speech: normal speech Motor exam (neuro): 5/5 motor strength present throughout S
[2023-12-01] MEDS: FAMOTIDINE 20 MG TABLET PO (09:11)
[2023-12-01] MEDS: FLUTICASONE PROPIONATE 0.05% NA SPR 16 GM BTL (*BKC) 1 SPRAY NASAL (09:11)
[2023-12-02] VITALS (12 sets, daily range): BP systolic 132–153; BP diastolic 61–77; PULSE 75–105; RESP 16–20; TEMP 36.5–37; O2SAT 90–92
[2023-12-02] MEDS: IPRATROPIUM 0.5 MG/ALBUTEROL SULFATE 2.5 MG AMPUL.NEB 3 ML INHALATION ×4 (02:40→19:45)
[2023-12-02] MEDS: methylPREDNISolone SOD SUCC 125 MG VIAL 60 MG IV PUSH ×4 (03:04→20:11)
[2023-12-02] MEDS: FLUTICASONE PROP 110 MCG INHALER 12 GM (*SP) 2 PUFF INHALATION ×2 (07:48→19:45)
--- NOTE | 2023-12-02 07:56 | PM.IMPN ---
Progress Note: A&P Assessment and Plan (1) Hypoxia: Code(s): R09.02 - Hypoxemia Status: Acute Assessment and Plan: - CXR: 1. Mild atelectasis in right lower lung zone. 2. Emphysema. - viral PCR - sputum culture - not on oxygen currently - supportive care - suspect COPD exacerbation (2) COPD exacerbation: Code(s): J44.1 - Chronic obstructive pulmonary disease with (acute) exacerbation Status: Acute Assessment and Plan: - DuoNeb Q6H CRISTAL - solumedrol 50 mg Q6H - hold home trelegy inhaler due to cristal duonebs, continue as fluticasone 2 puffs q.12 - no abx in last 90 days zithromax - continue supplemental O2, wean as appropriate-on RA currently (3) Essential (primary) hypertension: Code(s): I10 - Essential (primary) hypertension Status: Chronic Assessment and Plan: - chronic - continue home medications: HCTZ - monitor (4) Tobacco abuse: Code(s): Z72.0 - Tobacco use Status: Acute Assessment and Plan: smoking cessacion provided-not interested in quitting Plan Here with shortness of breath and congestion. Suspected COPD exacerbation. Started on steroid course, levofloxacin, and scheduled nebs. No pneumonia on imaging. Diet: heart healthy- add suppliments GI Prophylaxis: not indicated DVT Prophylaxis: SCDs Lines: peripheral Code Status: full code Time Spent With Patient Time with patient: 15 - 25 minutes Subjective Date/time seen: 12/02/23 07:56 Interval history: 78 y/o M presents here with shortness of breath and congestion with PMH of COPD, HTN, GERD, and tobacco use. Patient presents here from home for further evaluation of shortness of breath and congestion that started on Monday, 11/25 Shortness of breath has been constant and worsens with exertion. Does not worsen with laying flat.? Arrived tachypneic, unable to? to complete sentences due to dyspnea, and labored.? Sat was 88% on room air, increased to 98% on 2L nasal cannula. Denies fever, chills, and body aches. Has dry cough at baseline, denies any changes to volume of coughing and remains dry.? Current tobacco use, smokes 1 ppd x 50 years. No interest in cessation. Initial VS at presentation: 98.2? F, HR 89, R 35, 169/93, and 88% on RA. ED workup showed: ? No leukocytosis, no anemia, no significant electrolyte derangements, creatinine 0.9 and GFR >60.? CXR showed mild atelectasis and emphysema. 11/30- examines at the bedside. He is in up to the chair, alert, in no resp distress, on room air. Still gets SOB with activity but overall feels better. 12/01 pt is seen and examined today. He had uneventful night- on room air. Still sob with exertion. Review of Systems Review of Systems: All systems reviewed & are unremarkable except as noted in HPI and below Cardiovascular: Cardiovascular: Reports dyspnea on exertion Respiratory: Respiratory: Reports dyspnea on exertion Gastrointestinal: Gastrointestinal: Denies abdominal pain Genitourinary: Genitourinary: Denies hematuria Musculoskeletal: Musculoskeletal: Denies arthralgias and Denies joint swelling Psychiatric: Psychiatric: Denies anxiety Exam Narrative: expieratory wheeze, no crackles. remains slightly tachypneic. +tachy. Const: General: comfortable and no acute distress Other: , male, nontoxic appearance HENMT: Face/Nose/Sinus: Normal nares present Mouth: Yes moist mucous membranes Other: neb in place during exam Eyes: General: appearance normal, both eyes and all related structures Sclera: sclerae normal Pupils: Equal, round and reactive pupils present EOM: EOMs intact bilaterally Resp: Other: expiratory wheeze, no crackles. remains slightly tachypneic without accessory muscle use. Cardio: Rate: tachycardic Rhythm: regular rhythm Other: +murmur (known to patient) Skin: General skin exam: normal color and no rashes or lesions noted Wounds: no wounds Neuro:
[2023-12-02] MEDS: FAMOTIDINE 20 MG TABLET PO (08:35)
[2023-12-02] MEDS: FLUTICASONE PROPIONATE 0.05% NA SPR 16 GM BTL (*BKC) 1 SPRAY NASAL (08:35)
[2023-12-02] MEDS: AZITHROMYCIN 250 MG TABLET 500 MG PO (13:00)
[2023-12-02] MEDS: hydroCHLOROthiazide 25 MG TABLET PO (20:05)
[2023-12-03] VITALS (20 sets, daily range): BP systolic 131–148; BP diastolic 60–72; PULSE 73–102; RESP 18–20; TEMP 36.8–37; O2SAT 86–96
[2023-12-03] MEDS: IPRATROPIUM 0.5 MG/ALBUTEROL SULFATE 2.5 MG AMPUL.NEB 3 ML INHALATION ×4 (02:14→20:11)
[2023-12-03] MEDS: methylPREDNISolone SOD SUCC 125 MG VIAL 60 MG IV PUSH ×4 (03:50→21:20)
--- NOTE | 2023-12-03 07:35 | PM.IMPN ---
Progress Note: A&P Assessment and Plan (1) Hypoxia: Code(s): R09.02 - Hypoxemia Status: Acute Assessment and Plan: - CXR: 1. Mild atelectasis in right lower lung zone. 2. Emphysema. - viral PCR - sputum culture- need to obtain still - supportive care - suspect COPD exacerbation 12/02 breathing worse today- sob, rr fatser - will obtain chest xray -CTA to r/u PE - ekg (2) COPD exacerbation: Code(s): J44.1 - Chronic obstructive pulmonary disease with (acute) exacerbation Status: Acute Assessment and Plan: - DuoNeb Q6H CRISTAL - solumedrol 50 mg Q6H - hold home trelegy inhaler due to cristal duonebs, continue as fluticasone 2 puffs q.12 - no abx in last 90 days -was on levaquin - azithromycin was added - continue supplemental O2, wean as appropriate -will order chest xray (3) Essential (primary) hypertension: Code(s): I10 - Essential (primary) hypertension Status: Chronic Assessment and Plan: - chronic - continue home medications: HCTZ - monitor (4) Tobacco abuse: Code(s): Z72.0 - Tobacco use Status: Acute Assessment and Plan: smoking cessacion provided-not interested in quitting (5) Infiltrate noted on imaging study: Code(s): R93.89 - Abnormal findings on diagnostic imaging of other specified body structures Status: Acute Assessment and Plan: Worse SOB overnight - will repeat chest xray. Worsen WBC, o2 89% on ra- will add supplemental oxygen. already on azithromycin- will add rocephin Plan Here with shortness of breath and congestion. Suspected COPD exacerbation. Started on steroid course and scheduled nebs. Worse SOB overnight - will repeat chest xray. Worsen WBC, o2 89% on ra- will add supplemental oxygen. already on azithromycin- will add rocephin Diet: heart healthy- add supplement GI Prophylaxis: not indicated DVT Prophylaxis: SCDs Lines: peripheral Code Status: full code Time Spent With Patient Time with patient: less than 15 minutes Subjective Date/time seen: 12/03/23 07:35 Interval history: 78 y/o M presents here with shortness of breath and congestion with PMH of COPD, HTN, GERD, and tobacco use. Patient presents here from home for further evaluation of shortness of breath and congestion that started on Monday, 11/25 Shortness of breath has been constant and worsens with exertion. Does not worsen with laying flat.? Arrived tachypneic, unable to? to complete sentences due to dyspnea, and labored.? Sat was 88% on room air, increased to 98% on 2L nasal cannula. Denies fever, chills, and body aches. Has dry cough at baseline, denies any changes to volume of coughing and remains dry.? Current tobacco use, smokes 1 ppd x 50 years. No interest in cessation. Initial VS at presentation: 98.2? F, HR 89, R 35, 169/93, and 88% on RA. ED workup showed: ? No leukocytosis, no anemia, no significant electrolyte derangements, creatinine 0.9 and GFR >60.? CXR showed mild atelectasis and emphysema. 11/30- examines at the bedside. He is in up to the chair, alert, in no resp distress, on room air. Still gets SOB with activity but overall feels better. 12/01 pt is seen and examined today. Daughter at the bedside. He had uneventful night- on room air. Still sob with exertion. 12/02 seen and examined today. His breathing is worse today- he gets very sob with any exertion Review of Systems Review of Systems: All systems reviewed & are unremarkable except as noted in HPI and below Cardiovascular: Cardiovascular: Reports dyspnea on exertion Respiratory: Respiratory: Reports dyspnea on exertion Gastrointestinal: Gastrointestinal: Denies abdominal pain Genitourinary: Genitourinary: Denies hematuria Musculoskeletal: Musculoskeletal: Denies arthralgias and Denies joint swelling Psychiatric: Psychiatric: Denies anxiety Exam Narrative: expieratory wheeze, no crackles. remains slightly tachypneic. +tachy. Const: Gene
[2023-12-03] MEDS: FLUTICASONE PROP 110 MCG INHALER 12 GM (*SP) 2 PUFF INHALATION ×2 (07:42→20:10)
[2023-12-03 08:35] LABS: Hemoglobin 14.9 g/dL (14.0-18.0); Mean Corpuscular HGB Conc 32.4 g/dl (32-36); Mean Corpuscular Hemoglobin 29.8 pg (26-34); Mean Platelet Volume 10.4 fl (7.4-10.4); Platelet Count Result 200 k/mm3 (150-375); Red Cell Distribution Width 14.2 % (11.5-14.5); White Blood Count 14.2 K/mm3 (4.5-10.0)
[2023-12-03 08:36] LABS: Alanine Aminotransferase 41 U/L (6-50); Alkaline Phosphatase 62 U/L (38-126); Anion Gap 3 mmol/L (4-12); Aspartate Amino Transferase 43 U/L (17-59); Bilirubin,Total 0.6 mg/dL (0.2-1.3); Blood Urea Nitrogen 39 mg/dL (9-20); Calcium 9.2 mg/dL (8.4-10.2); Carbon Dioxide 34 mmol/L (22-30); Chloride 99 mmol/L (98-107); Estimated CRCL calculation 44 ml/min; Estimated Glomerular Filt Rate > 60; Glucose 111 mg/dL (65-110); Potassium 3.9 mmol/L (3.4-5.0); Sodium 136 mmol/L (137-145)
[2023-12-03] MEDS: AZITHROMYCIN 250 MG TABLET PO (09:17)
[2023-12-03] MEDS: FAMOTIDINE 20 MG TABLET PO (09:17)
[2023-12-03] MEDS: FLUTICASONE PROPIONATE 0.05% NA SPR 16 GM BTL (*BKC) 1 SPRAY NASAL (09:18)
--- NOTE | 2023-12-03 11:10 | ECG_ITS ---
SEE SCANNED COPY FOR CONFIRMED REPORT MTDD
--- NOTE | 2023-12-03 11:22 | HOMEO2EVAL ---
Evaluation was performed at [facility] Home Oxygen Evaluation RC: Home Oxygen (O2) Evaluation Start: 12/03/23 10:32 Freq: ONCE Status: Active Protocol: RPE Activity Type Activity Date Activity User E-sign Co-sign Detail Recorded Client Recorded Date Recorded By Document 12/03/23 11:00 KAG [email or web address] 12/03/23 11:19 KAG Document 12/03/23 11:06 KAG [email or web address] 12/03/23 11:21 KAG Document 12/03/23 11:10 KAG [email or web address] 12/03/23 11:22 KAG Document 12/03/23 11:05 KAG [email or web address] 12/03/23 11:19 KAG 12/03/23 12/03/23 12/03/23 11:00 11:06 11:10 Home O2 Evaluation [Oxygen] -Test Phase Resting Exercise Exercise -Oxygen Delivery Room Air Room Air Nasal Cannula -Oxygen Flow Rate (L/min) 1 [Pulse Oximetry] -Pulse Oximetry (90-100 %) 87 L 86 L 89 L [Pulse Rate] -Pulse Rate (60-100 beats/min) 95 102 H 99 [Evaluation] -Activity Tolerance Fair Fair [Exercise] -Ambulation Distance (feet) 60 60 -Ambulation Distance (meters) 18.28 18.28 [Comments] -Home Oxygen Evaluation Comments Patient walked Patient walked from room to back from nursing station nursing station , Patient was to room. having some shortness of breath. [Charges] -Evaluation Charges O2 Evaluation by 12/03/23 11:05 Home O2 Evaluation [Oxygen] -Test Phase Resting -Oxygen Delivery Nasal Cannula -Oxygen Flow Rate (L/min) 1 [Pulse Oximetry] -Pulse Oximetry (90-100 %) 90 [Pulse Rate] -Pulse Rate (60-100 beats/min) 97 [Evaluation] -Activity Tolerance [Exercise] -Ambulation Distance (feet) -Ambulation Distance (meters) [Comments] -Home Oxygen Evaluation Comments [Charges] -Evaluation Charges
--- NOTE | 2023-12-03 11:23 | PCRCNOTE ---
RT completed Home Evaluation for Oxygen. Patient qualified for 1L with rest and activity. RN informed of settings.
[2023-12-03] MEDS: hydroCHLOROthiazide 25 MG TABLET PO (21:20)
[2023-12-03] MEDS: guaiFENesin 12 HR 600 MG TABCR PO (21:20)
[2023-12-04] VITALS (12 sets, daily range): BP systolic 127–174; BP diastolic 64–76; PULSE 68–101; RESP 16–20; TEMP 36.3–36.9; O2SAT 92–95
--- NOTE | 2023-12-04 | ECHO_ITS ---
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 Summary 1. Complete two-dimensional, color flow and Doppler transthoracic echocardiogram is performed. 2. Normal left ventricular size and vigorous systolic function with grade 2 diastolic noncompliance. 3. Modestly dilated left atrium. 4. Posterior leaflet mitral valve prolapse with mild MR, anterior eccentrically directed jet. 5. Mild sclerosis of the aortic valve with well maintained leaflet separation. 6. Sinus rhythm. Left Ventricle Left ventricular chamber dimension is normal. Left ventricular systolic function is normal, estimated at 65-70%. The left ventricular diastolic function is grade II diastolic dysfunction. Right Ventricle Right ventricular chamber dimension is normal. Left Atria Left atrial chamber dimension is mildly enlarged. Right Atria Right atrial chamber dimension is normal. Aortic Valve The aortic valve is trileaflet. There is mild aortic valve sclerosis. There is no aortic valve stenosis. Pulmonic Valve The pulmonic valve is normal. 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 There is mild mitral valve regurgitation. The mitral valve annulus is moderately calcified. Tricuspid Valve The tricuspid valve leaflets are normal. There is mild tricuspid valve regurgitation. Pericardium/Pleural The pericardium appears normal. Aorta The aortic root size at the sinus of Valsalva is normal. Report Signatures
[2023-12-04] MEDS: IPRATROPIUM 0.5 MG/ALBUTEROL SULFATE 2.5 MG AMPUL.NEB 3 ML INHALATION ×4 (01:55→20:40)
[2023-12-04] MEDS: methylPREDNISolone SOD SUCC 125 MG VIAL 60 MG IV PUSH ×4 (03:03→20:31)
[2023-12-04] MEDS: FLUTICASONE PROP 110 MCG INHALER 12 GM (*SP) 2 PUFF INHALATION ×2 (07:55→20:41)
--- NOTE | 2023-12-04 08:01 | PM.IMPN ---
Progress Note: A&P Assessment and Plan (1) Hypoxia: Code(s): R09.02 - Hypoxemia Status: Acute Assessment and Plan: - CXR: 1. Mild atelectasis in right lower lung zone. 2. Emphysema. - viral PCR - sputum culture- need to obtain still - supportive care - suspect COPD exacerbation 12/02 breathing worse today- sob, rr fatser - will obtain chest xray -CTA to r/u PE- negative - ekg 12/03 - supplemental oxygen (2) COPD exacerbation: Code(s): J44.1 - Chronic obstructive pulmonary disease with (acute) exacerbation Status: Acute Assessment and Plan: - DuoNeb Q6H CRISTAL - solumedrol 50 mg Q6H - hold home trelegy inhaler due to cristal duonebs, continue as fluticasone 2 puffs q.12 - charted that pt was on levaquin when admitted but not on med list - azithromycin was added he is on ceftriaxone now IV - continue supplemental O2, wean as appropriate PUlm seen and eval him today: Agree with current regimen of IV Solu-Medrol antibiotics and short-acting bronchodilators.? Continue with DVT prophylaxis may change the nebulized short-acting bronchodilators q.4 hours while awake.? Will monitor the respiratory status.. (3) Essential (primary) hypertension: Code(s): I10 - Essential (primary) hypertension Status: Chronic Assessment and Plan: - chronic - continue home medications: HCTZ - monitor (4) Tobacco abuse: Code(s): Z72.0 - Tobacco use Status: Acute Assessment and Plan: smoking cessacion provided-not interested in quitting (5) Infiltrate noted on imaging study: Code(s): R93.89 - Abnormal findings on diagnostic imaging of other specified body structures Status: Acute Assessment and Plan: Worse SOB overnight om 12/02- repeated chest xray-infiltrate. Worsen WBC, o2 89% on ra- will add supplemental oxygen. already on azithromycin- will add Rocephin Plan Here with shortness of breath and congestion. Suspected COPD exacerbation. Started on steroid course and scheduled nebs. Worse SOB overnight - will repeat chest xray. Worsen WBC, o2 89% on ra- will add supplemental oxygen. already on azithromycin- will add rocephin Diet: regular diet GI Prophylaxis: not indicated DVT Prophylaxis: SCDs, lovenox Lines: peripheral Code Status: was switched to DNR from full code on 12/03/23 Time Spent With Patient Time with patient: 15 - 25 minutes Subjective Date/time seen: 12/04/23 08:01 Interval history: 78 y/o M presents here with shortness of breath and congestion with PMH of COPD, HTN, GERD, and tobacco use. Patient presents here from home for further evaluation of shortness of breath and congestion that started on Monday, 11/25 Shortness of breath has been constant and worsens with exertion. Does not worsen with laying flat.? Arrived tachypneic, unable to? to complete sentences due to dyspnea, and labored.? Sat was 88% on room air, increased to 98% on 2L nasal cannula. Denies fever, chills, and body aches. Has dry cough at baseline, denies any changes to volume of coughing and remains dry.? Current tobacco use, smokes 1 ppd x 50 years. No interest in cessation. Initial VS at presentation: 98.2? F, HR 89, R 35, 169/93, and 88% on RA. ED workup showed: ? No leukocytosis, no anemia, no significant electrolyte derangements, creatinine 0.9 and GFR >60.? CXR showed mild atelectasis and emphysema. 11/30- examines at the bedside. He is in up to the chair, alert, in no resp distress, on room air. Still gets SOB with activity but overall feels better. 12/01 pt is seen and examined today. Daughter at the bedside. He had uneventful night- on room air. Still sob with exertion. 12/02 seen and examined today. His breathing is worse today- he gets very sob with any exertion. chest xray showed infiltrate. he was staretd on Rocephin. CTA was done- negative. ekg completed - read afib but p wave present, awaiting card official read. pt wished to change code statu to DNR. D
[2023-12-04 08:32] LABS: Hematocrit 47.1 % (42.0-52.0); Hemoglobin 14.8 g/dL (14.0-18.0); Mean Corpuscular HGB Conc 31.4 g/dl (32-36); Mean Corpuscular Hemoglobin 29.1 pg (26-34); Mean Corpuscular Volume 92.5 fl (80-100); Mean Platelet Volume 9.7 fl (7.4-10.4); Platelet Count Result 209 k/mm3 (150-375); Red Blood Count 5.09 M/mm3 (4.6-6.20); Red Cell Distribution Width 13.9 % (11.5-14.5); White Blood Count 11.8 K/mm3 (4.5-10.0)
[2023-12-04 08:48] LABS: Alanine Aminotransferase 42 U/L (6-50); Albumin Level 4.1 g/dL (3.5-5.1); Alkaline Phosphatase 61 U/L (38-126); Anion Gap 6 mmol/L (4-12); Aspartate Amino Transferase 33 U/L (17-59); Bilirubin,Total 0.6 mg/dL (0.2-1.3); Blood Urea Nitrogen 34 mg/dL (9-20); Calcium 9.4 mg/dL (8.4-10.2); Carbon Dioxide 36 mmol/L (22-30); Chloride 95 mmol/L (98-107); Estimated CRCL calculation 44 ml/min; Estimated Glomerular Filt Rate > 60; Glucose 133 mg/dL (65-110); Potassium 3.4 mmol/L (3.4-5.0); Sodium 137 mmol/L (137-145)
[2023-12-04] MEDS: AZITHROMYCIN 250 MG TABLET PO (09:52)
[2023-12-04] MEDS: FAMOTIDINE 20 MG TABLET PO (09:52)
--- NOTE | 2023-12-04 10:00 | PM.CNPUL ---
Assessment and Plan Assessment and plan (1) COPD with acute exacerbation: Code(s): J44.1 - Chronic obstructive pulmonary disease with (acute) exacerbation Status: Acute Assessment and Plan: This 78-year-old man with severe COPD related to emphysema with a previous pulmonary function testing showed lung hyperinflation and air trapping, frequent COPD exacerbations requiring hospitalizations within the last 3 years chronically on triple inhaler maintenance bronchodilator, current smoker presented with a shortness of breath and cough related to another COPD exacerbation. Physical exam showed hyperinflated lungs scattered wheezes. Plan. Agree with current regimen of IV Solu-Medrol antibiotics and short-acting bronchodilators. Continue with DVT prophylaxis may change the nebulized short-acting bronchodilators q.4 hours while awake. Will monitor the respiratory status in collaboration with you. (2) Infiltrate noted on imaging study: Code(s): R93.89 - Abnormal findings on diagnostic imaging of other specified body structures Status: Acute (3) Essential (primary) hypertension: Code(s): I10 - Essential (primary) hypertension Status: Chronic (4) Tobacco abuse: Code(s): Z72.0 - Tobacco use Status: Acute History of Present Illness History of Present Illness Consult date: 12/04/23 Chief complaint: COPD Exacerbation Narrative: A 78-year-old male patient came in with a history of experiencing increasing shortness of breath over the last 3 to 4 days. He has a documented history of advanced COPD, with pulmonary function tests in 2019 indicating an FEV1 range of 1.25 L or 45% predicted, along with signs of air trapping and lung hyperinflation due to severe emphysema. His treatment includes maintenance triple inhaler and short-acting bronchodilators. His health was stable until about 3 days ago when he began experiencing shortness of breath, cough, and sputum production. He did not exhibit symptoms of fever, chills, hemoptysis, night sweats, lower extremity edema, or chest pain. Upon admission, a CTA scan revealed no signs of pulmonary embolism but showed prominent emphysematous changes. There was also an 8.7 mm nodular density located at the posterior posterolateral left costophrenic gutter of the left lower lobe. Treatment for COPD exacerbation was initiated, including IV steroids, nebulized short-acting bronchodilators, DVT prophylaxis, and antibiotics. The patient continues to experience shortness of breath and wheezing, although sputum production has decreased. He has had previous COPD exacerbations, resulting in two hospitalizations in the past three years. There is no history of hypercapnia. The patient continues to smoke one pack of cigarettes daily. Review of Systems Review of Systems: Patient reports some weight loss of approximately 1 lb per month. He has orthopnea and he sleeps in a recliner. He has history of acid reflux disease. He has no nausea vomiting diarrhea constipation or abdominal pain. He has no urinary complaints. He has no joint pain. The remainder of the 12 point system review is negative. Patient has received pneumonia vaccines but not COVID RSV or influenza vaccines. [facility] Past Medical History Medical History Acute respiratory failure (~04/2020) B12 deficiency COPD (chronic obstructive pulmonary disease) Environmental allergies Essential (primary) hypertension GERD without esophagitis History of COVID-19 (~08/2021) History of kidney stones Tobacco abuse Surgical History Surgical History H/O cataract extraction (~2018) Family History Family History Mother Excessive bleeding Cancer Social History Social History Social History: He lives with wi
--- NOTE | 2023-12-04 11:23 | PCRCNOTE ---
faxed o2 set up to [employer]. Waiting for approval.
[2023-12-04] MEDS: hydroCHLOROthiazide 25 MG TABLET PO (20:30)
[2023-12-04] MEDS: FLUTICASONE PROPIONATE 0.05% NA SPR 16 GM BTL (*BKC) 1 SPRAY NASAL (20:32)
[2023-12-05] VITALS (14 sets, daily range): BP systolic 125–168; BP diastolic 72–78; PULSE 75–100; RESP 18–20; TEMP 36.6–37; O2SAT 94–96
[2023-12-05] MEDS: IPRATROPIUM 0.5 MG/ALBUTEROL SULFATE 2.5 MG AMPUL.NEB 3 ML INHALATION ×5 (01:37→20:25)
[2023-12-05] MEDS: methylPREDNISolone SOD SUCC 125 MG VIAL 60 MG IV PUSH ×4 (04:22→20:07)
[2023-12-05] MEDS: FLUTICASONE PROP 110 MCG INHALER 12 GM (*SP) 2 PUFF INHALATION ×2 (07:07→20:25)
--- NOTE | 2023-12-05 08:14 | PM.IMPN ---
Progress Note: A&P Assessment and Plan (1) Hypoxia: Code(s): R09.02 - Hypoxemia Status: Acute Assessment and Plan: - CXR: 1. Mild atelectasis in right lower lung zone. 2. Emphysema. - viral PCR - sputum culture- need to obtain still - supportive care - suspect COPD exacerbation 12/02 breathing worse today- sob, rr - will obtain chest xray -CTA to r/u PE- negative - ekg 12/03 - supplemental oxygen 12/04 stable overnight- not much improvement pulm is following:Will continue with current regimen of IV steroids DVT prophylaxis antibiotics.? Will change short-acting bronchodilator treatment to q.4 hours while awake.? Will continue to monitor the patient's respiratory status (2) COPD exacerbation: Code(s): J44.1 - Chronic obstructive pulmonary disease with (acute) exacerbation Status: Acute Assessment and Plan: - DuoNeb Q6H CRISTAL - solumedrol 50 mg Q6H - hold home trelegy inhaler due to cristal duonebs, continue as fluticasone 2 puffs q.12 - charted that pt was on levaquin when admitted but not on med list - azithromycin was added he is on ceftriaxone now IV - continue supplemental O2, wean as appropriate PUlm seen and eval him today: Will continue with current regimen of IV steroids DVT prophylaxis antibiotics.? Will change short-acting bronchodilator treatment to q.4 hours while awake.? Will continue to monitor the patient's respiratory status (3) Essential (primary) hypertension: Code(s): I10 - Essential (primary) hypertension Status: Chronic Assessment and Plan: - chronic - continue home medications: HCTZ - monitor (4) Tobacco abuse: Code(s): Z72.0 - Tobacco use Status: Acute Assessment and Plan: smoking cessation provided-not interested in quitting - knows that cannot smoke at home with oxygen on and around (5) Infiltrate noted on imaging study: Code(s): R93.89 - Abnormal findings on diagnostic imaging of other specified body structures Status: Acute Assessment and Plan: Worse SOB overnight om 12/02- repeated chest xray-infiltrate. Worsen WBC, o2 89% on ra- will add supplemental oxygen. already on azithromycin- will add Rocephin Plan Here with shortness of breath and congestion. Suspected COPD exacerbation. Started on steroid course and scheduled nebs. Worse SOB overnight - will repeat chest xray. Worsen WBC, o2 89% on ra- will add supplemental oxygen. already on azithromycin- rocephin was added Diet: regular diet GI Prophylaxis: not indicated DVT Prophylaxis: SCDs, lovenox Lines: peripheral Code Status: was switched to DNR from full code on 12/03/23 Time Spent With Patient Time with patient: less than 15 minutes Subjective Date/time seen: 12/05/23 08:14 Interval history: 78 y/o M presents here with shortness of breath and congestion with PMH of COPD, HTN, GERD, and tobacco use. Patient presents here from home for further evaluation of shortness of breath and congestion that started on Monday, 11/25 Shortness of breath has been constant and worsens with exertion. Does not worsen with laying flat.? Arrived tachypneic, unable to? to complete sentences due to dyspnea, and labored.? Sat was 88% on room air, increased to 98% on 2L nasal cannula. Denies fever, chills, and body aches. Has dry cough at baseline, denies any changes to volume of coughing and remains dry.? Current tobacco use, smokes 1 ppd x 50 years. No interest in cessation. Initial VS at presentation: 98.2? F, HR 89, R 35, 169/93, and 88% on RA. ED workup showed: ? No leukocytosis, no anemia, no significant electrolyte derangements, creatinine 0.9 and GFR >60.? CXR showed mild atelectasis and emphysema. 11/30- examines at the bedside. He is in up to the chair, alert, in no resp distress, on room air. Still gets SOB with activity but overall feels better. 12/01 pt is seen and examined today. Daughter at the bedside. He had uneventful night- on room air. St
[2023-12-05] MEDS: AZITHROMYCIN 250 MG TABLET PO (08:18)
[2023-12-05] MEDS: FAMOTIDINE 20 MG TABLET PO (08:18)
--- NOTE | 2023-12-05 08:42 | PM.PNPUL ---
Progress Note: A&P Assessment and Plan (1) COPD exacerbation: Code(s): J44.1 - Chronic obstructive pulmonary disease with (acute) exacerbation Status: Acute Assessment and Plan: 78-year-old man with severe obstructive airway disease based on a pulmonary function testing done several years ago, history of previous COPD exacerbation presented with a few day history of increasing shortness of breath cough and wheezing. He has been treated for COPD exacerbation. Respiratory status has not significantly improved over the last 24 hours. Cough with sputum production is less today but continues to have shortness of breath and wheezing. Stat chest x-ray this a.m. showed no new infiltrates. Plan: Will continue with current regimen of IV steroids DVT prophylaxis antibiotics. Will change short-acting bronchodilator treatment to q.4 hours while awake. Will continue to monitor the patient's respiratory status. (2) Essential (primary) hypertension: Code(s): I10 - Essential (primary) hypertension Status: Chronic Subjective Date/time seen: 12/05/23 08:42 Interval history: Patient stated he has got more wheezing today. Shortness of breath unchanged. Coughing less with no sputum production. Remains afebrile receiving nebulized short-acting bronchodilators q.6 hours. Ambulating in room. Review of Systems Review of Systems: All systems reviewed & are unremarkable except as noted in HPI and below (HPI and below) Exam Narrative: GENERAL APPEARANCE: Well developed, well nourished, alert and cooperative, appears to be moderate respiratory distress while on supplemental oxygen SKIN: Inspection of the skin reveals no rashes, ulcerations or petechiae. HEENT: Sclerae anicteric and conjunctivae pink and moist. Extraocular movements were intact and pupils were equal, round, and reactive to light. Dry oral mucosa. NECK: Supple. There was no thyroid enlargement, and no tenderness, or masses were felt. CHEST: Increased AP diameter LUNGS: Over inflated lungs with scattered wheezing, and distant breath sounds CARDIAC: There was a regular rate and rhythm without any murmurs, gallops, rubs. ABDOMEN: Soft and nontender with normal bowel sounds. There was no organomegaly. LYMPH NODES: No lymphadenopathy was appreciated in the neck.. EXTREMITIES: No cyanosis, clubbing or edema. NEUROLOGIC: Alert and oriented x 3. Normal affect. Objective Data Vital Signs Vital Signs: Vital Signs - 24 hr 12/04/23 09:50 12/04/23 13:27 12/04/23 13:37 Temperature Pulse Rate 99 87 Respiratory Rate 20 18 Blood Pressure Pulse Oximetry 92 Oxygen Delivery Nasal Cannula Oxygen Flow Rate 2 Fraction of Inspired Oxygen 12/04/23 13:41 12/04/23 20:00 12/04/23 20:17 Temperature 36.9 C 36.3 C L 36.3 C L Pulse Rate 101 H 97 97 Respiratory Rate 18 18 Blood Pressure 153/73 H 174/76 H 174/76 H Pulse Oximetry 94 94 94 Oxygen Delivery Oxygen Flow Rate Fraction of Inspired Oxygen 12/04/23 20:00 12/04/23 20:40 12/05/23 01:04 Temperature Pulse Rate 97 85 90 Respiratory Rate 18 20 18 Blood Pressure Pulse Oximetry 94 Oxygen Delivery Nasal Cannula Oxygen Flow Rate 2 Fraction of Inspired Oxygen 28 12/05/23 01:38 12/05/23 04:17 12/05/23 07:10 Temperature 36.6 C Pulse Rate 89 75 81 Respiratory Rate 18 20 18 Blood Pressure 125/72 Pulse Oximetry 95 96 Oxygen Delivery Nasal Cannula Oxygen Flow Rate 2 Fraction of Inspired Oxygen 12/05/23 07:10 12/05/23 07:20 Temperature Pulse Rate 81 84 Respiratory Rate 18 18 Blood Pressure Pulse Oximetry Oxygen Delivery Oxygen Flow Rate Fraction of Inspired Oxygen Intake/Output Intake/Output: Intake & Output 12/02/23 12/03/23 12/04/23 12/05/23 23:59 23:59 23:59 23:59 Intake Total 360 1520 1970 290 Balance 360 1520 1970 290 Meds/Results Medications: Active Medications Generic Name Dose Route Start Last Admi
[2023-12-05] MEDS: NYSTATIN 100,000 UNITS/ML SUSP 5 ML ORAL.SUSP PO ×3 (15:06→20:08)
[2023-12-05] MEDS: ALBUTEROL SULFATE (*SP) AEROSOL 1 PUFF 2 PUFF INHALATION (15:15)
[2023-12-05] MEDS: FLUTICASONE PROPIONATE 0.05% NA SPR 16 GM BTL (*BKC) 1 SPRAY NASAL (20:07)
[2023-12-05] MEDS: hydroCHLOROthiazide 25 MG TABLET PO (20:08)
[2023-12-06] VITALS (10 sets, daily range): BP systolic 146–147; BP diastolic 65–77; PULSE 69–108; RESP 18–20; TEMP 36.2–36.4; O2SAT 94–95
[2023-12-06] MEDS: methylPREDNISolone SOD SUCC 125 MG VIAL 60 MG IV PUSH (02:45)
[2023-12-06] MEDS: IPRATROPIUM 0.5 MG/ALBUTEROL SULFATE 2.5 MG AMPUL.NEB 3 ML INHALATION ×3 (02:59→12:24)
[2023-12-06] MEDS: FLUTICASONE PROP 110 MCG INHALER 12 GM (*SP) 2 PUFF INHALATION (07:22)
[2023-12-06] MEDS: AZITHROMYCIN 250 MG TABLET PO (08:34)
[2023-12-06] MEDS: predniSONE 20 MG TABLET 40 MG PO (08:34)
[2023-12-06] MEDS: PANTOPRAZOLE 40 MG TABLET PO (08:34)
[2023-12-06] MEDS: FAMOTIDINE 20 MG TABLET PO (08:35)
[2023-12-06] MEDS: NYSTATIN 100,000 UNITS/ML SUSP 5 ML ORAL.SUSP PO ×2 (08:38→12:44)
[2023-12-06 08:42] LABS: Hematocrit 48.2 % (42.0-52.0); Hemoglobin 15.3 g/dL (14.0-18.0); Mean Corpuscular HGB Conc 31.7 g/dl (32-36); Mean Corpuscular Hemoglobin 29.5 pg (26-34); Mean Corpuscular Volume 93.1 fl (80-100); Mean Platelet Volume 9.9 fl (7.4-10.4); Platelet Count Result 217 k/mm3 (150-375); Red Blood Count 5.18 M/mm3 (4.6-6.20); White Blood Count 10.1 K/mm3 (4.5-10.0)
[2023-12-06 08:57] LABS: Alanine Aminotransferase 44 U/L (6-50); Albumin Level 3.8 g/dL (3.5-5.1); Alkaline Phosphatase 64 U/L (38-126); Anion Gap 4 mmol/L (4-12); Aspartate Amino Transferase 29 U/L (17-59); Bilirubin,Total 0.8 mg/dL (0.2-1.3); Blood Urea Nitrogen 47 mg/dL (9-20); Calcium 9.2 mg/dL (8.4-10.2); Carbon Dioxide 37 mmol/L (22-30); Chloride 98 mmol/L (98-107); Estimated CRCL calculation 49 ml/min; Estimated Glomerular Filt Rate > 60; Glucose 111 mg/dL (65-110); Potassium 3.7 mmol/L (3.4-5.0); Sodium 139 mmol/L (137-145)
--- NOTE | 2023-12-06 13:03 | PM.PNPUL ---
Progress Note: A&P Assessment and Plan (1) COPD exacerbation: Code(s): J44.1 - Chronic obstructive pulmonary disease with (acute) exacerbation Status: Acute Assessment and Plan: 78-year-old man with severe obstructive airway disease based on a pulmonary function testing done several years ago, history of previous COPD exacerbation presented with a few day history of increasing shortness of breath cough and wheezing. He has been treated for COPD exacerbation. Respiratory status has not significantly improved over the last 24 hours. Cough with sputum production is less today but continues to have shortness of breath and wheezing. Stat chest x-ray this a.m. showed no new infiltrates. Plan: Patient was switched to oral steroids earlier today. Continue with current nebulized short-acting bronchodilators DVT prophylaxis antibiotics. Will continue to monitor the patient along with you. (2) Essential (primary) hypertension: Code(s): I10 - Essential (primary) hypertension Status: Chronic Subjective Date/time seen: 12/06/23 13:03 Interval history: Patient stated he is doing a little better today. Has less cough no sputum production and less wheezing. Receiving nebulized short-acting bronchodilators every 4 hours. Ambulating in room. Afebrile Review of Systems Review of Systems: All systems reviewed & are unremarkable except as noted in HPI and below (HPI and below) Exam Narrative: GENERAL APPEARANCE: Well developed, well nourished, alert and cooperative, appears to be moderate respiratory distress while on supplemental oxygen SKIN: Inspection of the skin reveals no rashes, ulcerations or petechiae. HEENT: Sclerae anicteric and conjunctivae pink and moist. Extraocular movements were intact and pupils were equal, round, and reactive to light. Dry oral mucosa. NECK: Supple. There was no thyroid enlargement, and no tenderness, or masses were felt. CHEST: Increased AP diameter LUNGS: Over inflated lungs with scattered wheezing, and distant breath sounds CARDIAC: There was a regular rate and rhythm without any murmurs, gallops, rubs. ABDOMEN: Soft and nontender with normal bowel sounds. There was no organomegaly. LYMPH NODES: No lymphadenopathy was appreciated in the neck.. EXTREMITIES: No cyanosis, clubbing or edema. NEUROLOGIC: Alert and oriented x 3. Normal affect. Objective Data Vital Signs Vital Signs: Vital Signs - 24 hr 12/05/23 13:05 12/05/23 13:12 12/05/23 14:08 Temperature 36.9 C Pulse Rate 86 85 100 Respiratory Rate 20 20 18 Blood Pressure 148/78 H Pulse Oximetry 94 Oxygen Delivery Oxygen Flow Rate Fraction of Inspired Oxygen 12/05/23 19:31 12/05/23 20:00 12/05/23 20:25 Temperature 37.0 C Pulse Rate 93 93 94 Respiratory Rate 18 18 20 Blood Pressure 168/74 H Pulse Oximetry 96 96 Oxygen Delivery Nasal Cannula Oxygen Flow Rate 2 Fraction of Inspired Oxygen 28 12/05/23 20:29 12/05/23 20:35 12/06/23 02:59 Temperature Pulse Rate 94 90 69 Respiratory Rate 20 18 Blood Pressure Pulse Oximetry 94 Oxygen Delivery Nasal Cannula Oxygen Flow Rate 2 Fraction of Inspired Oxygen 12/06/23 03:07 12/06/23 05:21 12/06/23 07:23 Temperature 36.4 C Pulse Rate 73 74 74 Respiratory Rate 18 18 18 Blood Pressure 147/65 H Pulse Oximetry 94 Oxygen Delivery Oxygen Flow Rate Fraction of Inspired Oxygen 12/06/23 07:22 12/06/23 07:36 12/06/23 08:30 Temperature Pulse Rate 72 Respiratory Rate 18 Blood Pressure Pulse Oximetry 95 95 Oxygen Delivery Nasal Cannula Nasal Cannula Oxygen Flow Rate 2 2 Fraction of Inspired Oxygen 12/06/23 12:24 12/06/23 12:32 Temperature Pulse Rate 108 H 92 Respiratory Rate 20 20 Blood Pressure Pulse Oximetry Oxygen Delivery Oxygen Flow Rate Fraction of Inspired Oxygen Intake/Output Intake/Output: Intake & Output 12/03/23 12/04/23 12/05/23
--- NOTE | 2023-12-06 13:14 | PM.DS ---
DS: Admitting Diagnosis Discharge Date 12/06/2023 Admitting Diagnosis Acute on chronic respiratory failure with hypoxia secondary to COPD exacerbation DS: Discharge Diagnosis Discharge Diagnosis (1) Hypoxia: Code(s): R09.02 - Hypoxemia Status: Acute Assessment and Plan: - CXR: 1. Mild atelectasis in right lower lung zone. 2. Emphysema. - viral PCR - sputum culture- need to obtain still - supportive care - suspect COPD exacerbation 12/02 breathing worse today- sob, rr - will obtain chest xray -CTA to r/u PE- negative - ekg 12/03 - supplemental oxygen 12/04 stable overnight- not much improvement pulm is following:Will continue with current regimen of IV steroids DVT prophylaxis antibiotics.? Will change short-acting bronchodilator treatment to q.4 hours while awake.? Will continue to monitor the patient's respiratory status (2) COPD exacerbation: Code(s): J44.1 - Chronic obstructive pulmonary disease with (acute) exacerbation Status: Acute Assessment and Plan: - DuoNeb Q6H CRISTAL - solumedrol 50 mg Q6H - hold home trelegy inhaler due to cristal duonebs, continue as fluticasone 2 puffs q.12 - charted that pt was on levaquin when admitted but not on med list - azithromycin was added he is on ceftriaxone now IV - continue supplemental O2, wean as appropriate PUlm seen and eval him today: Will continue with current regimen of IV steroids DVT prophylaxis antibiotics.? Will change short-acting bronchodilator treatment to q.4 hours while awake.? Will continue to monitor the patient's respiratory status (3) Essential (primary) hypertension: Code(s): I10 - Essential (primary) hypertension Status: Chronic Assessment and Plan: - chronic - continue home medications: HCTZ - monitor (4) Tobacco abuse: Code(s): Z72.0 - Tobacco use Status: Acute Assessment and Plan: smoking cessation provided-not interested in quitting - knows that cannot smoke at home with oxygen on and around (5) Infiltrate noted on imaging study: Code(s): R93.89 - Abnormal findings on diagnostic imaging of other specified body structures Status: Acute Assessment and Plan: Worse SOB overnight om 12/02- repeated chest xray-infiltrate. Worsen WBC, o2 89% on ra- will add supplemental oxygen. already on azithromycin- will add Rocephin (6) Acute and chronic respiratory failure with hypoxia: Code(s): J96.21 - Acute and chronic respiratory failure with hypoxia Status: Acute (7) COPD with acute exacerbation: Code(s): J44.1 - Chronic obstructive pulmonary disease with (acute) exacerbation Status: Acute Plan Disposition: Patient being disharged to home on supplemental oxygen will need to follow up with education intern and recommend pulmonary rehab. DS: Summary Hospital Course Reason for hospitalization: Acute on chronic respiratory failure with hypoxia secondary to COPD exacerbation Hospital Course: Medical Chart: Interval history: 78 y/o M presents here with shortness of breath and congestion with PMH of COPD, HTN, GERD, and tobacco use. Patient presents here from home for further evaluation of shortness of breath and congestion that started on Monday, 11/25 Shortness of breath has been constant and worsens with exertion. Does not worsen with laying flat.? Arrived tachypneic, unable to? to complete sentences due to dyspnea, and labored.? Sat was 88% on room air, increased to 98% on 2L nasal cannula. Denies fever, chills, and body aches. Has dry cough at baseline, denies any changes to volume of coughing and remains dry.? Current tobacco use, smokes 1 ppd x 50 years. No interest in cessation. Initial VS at presentation: 98.2? F, HR 89, R 35, 169/93, and 88% on RA. ED workup showed: ? No leukocytosis, no anemia, no significant electrolyte derangements, creatinine 0.9 and GFR >60.? CXR showed mild atelectasis and emphysema. 11/30- examines at
== END 2023-12-06 15:15 | disposition home or self-care (01) | DRG 190 ==
LOC: ANHED 08:49 → ANH3MEDSUR 12:05 → ANH2MED 13:48
PROVIDERS: Nurse Practitioner; Student in an Organized Health Care Education/Training Program; Admitting Provider Internal Medicine; Emergency Provider Emergency Medicine; PCP Family Medicine; Visit Provider Nurse Practitioner Family
DX: J44.1 Chronic obstructive pulmonary disease with (acute) exacerbation (principal); J96.01 Acute respiratory failure with hypoxia; I10 Essential (primary) hypertension; E53.8 Deficiency of other specified B group vitamins; K21.9 Gastro-esophageal reflux disease without esophagitis; F17.210 Nicotine dependence, cigarettes, uncomplicated; Z20.822 Contact with and (suspected) exposure to COVID-19; Z87.442 Personal history of urinary calculi
CPT/HCPCS: 36415; 71045; 71046; 71275; 80053; 85025; 85027; 87637; 93005; 93306; 94618; 94640; 96374; 99285; A9270; G0378; J0696; J2919; J7512; Q9967

== ENCOUNTER 2025-02-10 08:08 | Outpatient (CLI) | payer MEDICARE, SELFPAY ==
--- OUTSIDE RECORDS SUMMARY | 2025-02-10 08:11 | XMS_ITS | Continuity of Care Document ---
Author Organization [facility] Address [address] [place] [address] Phone Care Team Providers Care Conversion Worker Name Role Phone Leeroy Don Unavailable Unavailable Procedures Procedure Date Eye Exam & Treatment Refraction Eye Exam & Treatment Refraction Eye Exam & Treatment Advance Directives Directive Yes / No Effective Date File Name No Information Encounters Encounter Description Practice Location Reason(s) For Visit Diagnoses Date Provider Providers Copied on Encounter [facility], [address] [place] [address] [address], [place], [place], [id number], tel:[phone] [facility] No Information Dec-1 6-200 9 Krishnasamy Leeroy. [address] [facility] [place] [address], [place], [place], [facility], . tel:[phone] [facility], [id number] [place] [address] [address], [place], [place], [id number], [place] tel:[phone] [facility] No Information Dec-0 3-200 8 Krishnasamy Leeroy. [address] [facility] [address], [place], [address], [place]. tel:[phone] [facility], [address], [place], [place], [id number], [place] tel:[phone] [facility] No Information Dec-0 3-200 7 Paco Sue. [address] [facility], [address], [place], [place], [id number], [place]. tel:[phone] Family History Family Member Type Diagnosis Age At Onset No Information Payers Payer name Insurance type Covered democrat ID Authorernestoa sherronfavian(s) [facility] Out Of State [id number] Social History Type Description Quantity Date Captured Comments Sex Male Smoking Status No Information Chief Complaint And Reason For Visit No Information Reason For Referral Reason For Referral No Information History Of Present Illness Encounter Date Complaint History Of Prese nt Illness No Information Functional Status Date Functional Assessmen t No Information Instructions Date Instruction Additional Infor mation No Information Assessments Type Assessment Date No Information Patient Care Teams Name Effective Dates (start - stop) Status Members No Information
[2025-02-10 13:40] LABS: Hematocrit 45.0 % (42.0-52.0); Hemoglobin 14.2 g/dL (14.0-18.0); Immature Granulocyte Percent A 0.4 % (0-0.5); Lymphocytes Absolute Auto 1.32 K/mm3 (0.9-3.2); Mean Corpuscular HGB Conc 31.6 g/dl (32-36); Mean Corpuscular Hemoglobin 29.6 pg (26-34); Mean Corpuscular Volume 93.8 fl (80-100); Nucleated Red Blood Cells Absolute Auto 0.000 K/mm3 (0.0-0.012); Nucleated Red Blood Cells Perc 0.0 % (0.0-0.2); Platelet Count Result 234 k/mm3 (150-375); Red Blood Count 4.80 M/mm3 (4.6-6.20); White Blood Count 7.3 K/mm3 (4.5-10.0)
[2025-02-10 13:49] LABS: Alanine Aminotransferase 17 U/L (6-50); Albumin Level 4.0 g/dL (3.5-5.1); Alkaline Phosphatase 66 U/L (38-126); Anion Gap 6 mmol/L (4-12); Aspartate Amino Transferase 59 U/L (17-59); Bilirubin,Total 0.5 mg/dL (0.2-1.3); Blood Urea Nitrogen 27 mg/dL (9-20); Calcium 9.7 mg/dL (8.4-10.2); Carbon Dioxide 34 mmol/L (22-30); Chloride 98 mmol/L (98-107); Cholesterol 178 mg/dL (0-200); Estimated Glomerular Filt Rate > 60; Glucose 79 mg/dL (65-110); HDL Direct 62 mg/dL; Magnesium 2.0 mg/dL (1.6-2.3); Potassium 3.9 mmol/L (3.4-5.0); Sodium 138 mmol/L (137-145); Total Protein 6.9 g/dL (6.3-8.2); Triglycerides 71 mg/dL (<150)
[2025-02-10 14:24] LABS: Thyroid Stimulating Hormone Reflex 0.485 uIU/mL (0.465-4.68)
[2025-02-10 14:31] LABS: Vitamin B12 305.0 pg/mL (239-931)
[2025-02-10 16:30] LABS: Hemoglobin A1C 5.8 % (<5.7)
== END 2025-02-10 08:09 | disposition home or self-care (01) ==
LOC: ANHGOSHLAB 08:09
PROVIDERS: PCP Family Medicine; Visit Provider Nurse Practitioner Family
DX: R73.9 Hyperglycemia, unspecified (principal); E55.9 Vitamin D deficiency, unspecified; I10 Essential (primary) hypertension; J44.9 Chronic obstructive pulmonary disease, unspecified; E53.8 Deficiency of other specified B group vitamins; R93.89 Abnormal findings on diagnostic imaging of other specified body structures
CPT/HCPCS: 36415; 80053; 80061; 82306; 82607; 83036; 83735; 84443; 85025

== ENCOUNTER 2025-03-26 00:09 | Inpatient (IN) | payer MEDICARE, SELFPAY ==
[2025-03-26] VITALS (26 sets, daily range): BP systolic 112–192; BP diastolic 54–92; PULSE 74–104; RESP 13–26; TEMP 36.4–36.7; O2SAT 91–100; BMI 17.9
--- NOTE | 2025-03-26 | ECHO_ITS ---
Patient Info Name: Mruali Koenig Age: 79 years : 1945 Gender: Male Ht: 67 in Wt: 114 lbs BSA: 1.55 m2 HR: 80 bpm BP: 112 / 69 mmHg Heart Rhythm: Sinus Rhythm Technical Quality: Fair Exam Date: 03/26/2025 12:41 PM Patient Status: I Admit Date: 03/26/2025 Exam Type: CA echo doppler color flow Complete two-dimensional, color flow and Doppler transthoracic echocardiogram is performed. Staff Referring Physician: Flavio H[employer] Production Liaison: Kyle Lorenzo III Attending Provider: Cynthia Carrasco Summary 1. Complete two-dimensional, color flow and Doppler transthoracic echocardiogram is performed. 2. Left ventricular chamber dimension is normal. 3. Left ventricular systolic function is normal, estimated at 65-70. 4. There is mildly increased left ventricular wall thickness. 5. The left ventricular diastolic function is abnormal. 6. Left atrial chamber dimension is mildly enlarged. 7. There is moderate aortic valve sclerosis. 8. There is mild aortic valve regurgitation. 9. 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 10. There is moderate to severe mitral valve regurgitation. 11. The mitral valve annulus is moderately calcified. 12. There is mild tricuspid valve regurgitation. 13. Moderate pulmonary hypertension, estimated pulmonary arterial systolic pressure is 47 mmHg. 14. There is moderate pulmonic regurgitation. 15. The aortic root size at the sinus of Valsalva is mildly dilated. 16. There is moderate aortic atherosclerosis. Left Ventricle Left ventricular chamber dimension is normal. Left ventricular systolic function is normal, estimated at 65-70. There is mildly increased left ventricular wall thickness. The left ventricular diastolic function is abnormal. Right Ventricle Right ventricular chamber dimension is normal. Right ventricular systolic function is normal. Left Atria Left atrial chamber dimension is mildly enlarged. Right Atria Right atrial chamber dimension is normal. Atrial Septum Intact interatrial septum visualized by color flow imaging. Aortic Valve The aortic valve is trileaflet. There is moderate aortic valve sclerosis. There is no aortic valve stenosis. There is mild aortic valve regurgitation. Pulmonic Valve The pulmonic valve is normal. There is no pulmonic valve stenosis. There is moderate pulmonic regurgitation. 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 There is no mitral valve stenosis. There is moderate to severe mitral valve regurgitation. The mitral valve annulus is moderately calcified. Tricuspid Valve The tricuspid valve leaflets are normal. There is no significant tricuspid valve stenosis. There is mild tricuspid valve regurgitation. Moderate pulmonary hypertension, estimated pulmonary arterial systolic pressure is 47 mmHg. Pericardium/Pleural The pericardium appears normal. There is no pericardial effusion. Inferior Vena Cava Dilated inferior vena cava with >50% collapse upon inspiration consistent with elevated right atrial pressure, 10 mmHg. Aorta The aortic root size at the sinus of Valsalva is mildly dilated. There is moderate aortic atherosclerosis. Left Ventricular Outflow Tract Name Value Normal LVOT 2D LVOT Diameter 2.4 cm LVOT Doppler LVOT Peak Velocity 85 cm/s LVOT Peak Gradient 3 mmHg LVOT Mean Gradient 1 mmHg LVOT VTI 13 cm LVOT VTI/AV VTI Ratio 0.6 LVOT Stroke Volume 58 ml LVOT CO 12.4 l/min LVOT CI 8.0 l/min/m2 Pulmonic Valve Name Value Normal PV Doppler PV Peak Velocity 110 cm/s PV Peak Gradient 5 mmHg PV Mean Gradient 2 mmHg Mitral Valve Name Value Normal MV Doppler MV Peak Gradient 5 mmHg MV Mean Gradient 2 mmHg MV Area (Cont Eq VTI) 2.0 cm2 MV Regurgitation Doppler MR Peak Gradient 71 mmHg MV Diastolic Function MV E Peak Velocity 91 cm/s MV A Peak Velocity 69 cm/s MV E/A 1.3 MV Decel Time (PW) 217 ms MV Annular TDI MV E/e' (Septal) 9.5 MV E/e' (Lateral) 8.2 MV E/e' (Average) 8.9 Tricuspid Valve Name Value Normal TV Regurgitation Doppler TR Peak Velocity 306 cm/s TR Peak Gradient 36 mmHg Estimated PAP/RSVP RA Pressure 10 mmHg <=5 PA Systolic Pressure 47 mmHg <36 RV Systolic Pressure 47 mmHg <36 TV Annular TDI TV Lateral Tanna s' Velocity 23.1 cm/s >=9.5 Aortic Valve Name Value Normal AV Doppler AV Peak Velocity 128 cm/s AV Peak Gradient 6 mmHg AV Mean Gradient 3 mmHg AV VTI 21 cm AV Area (Cont Eq VTI) 2.8 cm2 >=3.0 AV Area (Cont Eq Kwaku) 2.9 cm2 AV DI (Kwaku) 0.66 AV Regurgitation 2D LVOT Area 4.4 cm2 Ventricles Name Value Normal LV Dimensions 2D/MM IVS Diastolic Thickness (2D) 1.1 cm 0.6-1.0 LVID Diastole (2D) 3.7 cm 4.2-5.8 LVIW Diastolic Thickness (2D) 1.1 cm 0.6-1.0 LVID Systole (2D) 2.5 cm 2.5-4.0 LVOT Diameter 2.4 cm LV Mass (2D Cubed) 139.11 g 88.00-224.00 LV Mass Index (2D Cubed) 90 g/m2 49-115 Relative Wall Thickness (2D) 0.62 <=0.42 LV Fractional Shortening/Ejection Fraction 2D/MM LV Fractional Shortening (2D) 32 % 25-43 LV EF (2D Teichholz) 61 % LV Diastolic Volume (4C MOD) 112 ml LV EF (4C MOD) 61 % LV Diastolic Length (4C) 8.5 cm LV Systolic Length (4C) 7.0 cm LV Stroke Volume (4C MOD) 68 ml Atria Name Value Normal LA Dimensions LA Volume (4C A-L) 127 ml RA Dimensions RA Systolic Major [place] Length (4C) 5.6 cm 2.1-2.7 RA Area (4C) 22.6 cm2 <=18.0 Report Signatures
--- NOTE | ~2025-03-26 | CT_ITS ---
EXAM: CT abdomen pelvis w con - 03/26/2025 2:04 CDT History: 79 years old Male with RLQ abd pain TECHNIQUE: Multidetector CT of the abdomen and pelvis with intravenous contrast. Coronal and sagittal reformats were also provided for review. Automatic exposure control was used for this study. CONTRAST: 100 cc of Optiray 350 was used for this study. COMPARISON: None Available. FINDINGS: VISUALIZED CHEST: Bibasilar atelectasis. Right basilar consolidation with air bronchograms. ABDOMEN and PELVIS: LIVER: Right hepatic dome simple cyst. GALLBLADDER: No calcified gallstones. BILE DUCTS: No dilatation. SPLEEN: Within normal limits. PANCREAS: Within normal limits. ADRENAL GLANDS: Within normal limits. KIDNEYS and URETERS: No hydronephrosis or hydroureter. No nephroureterolithiasis. URINARY BLADDER: Within normal limits. STOMACH and BOWEL: No abnormal bowel wall thickening. No obstruction. Diffuse wall thickening of the stomach, concerning for gastritis. REPRODUCTIVE ORGANS: Within normal limits. MESENTERY/PERITONEAL CAVITY: No free fluid or pneumoperitoneum. LYMPH NODES: No abdominal or pelvic lymphadenopathy. ABDOMINAL WALL: Within normal limits. VASCULATURE: Within normal limits. MUSCULOSKELETAL: Multilevel degenerative changes of the spine. IMPRESSION: 1. Findings suggestive of gastritis. 2. Right lower lobe consolidation. Reviewed, dictated and finalized at location N.
--- NOTE | ~2025-03-26 | XR_ITS ---
EXAMINATION: XR chest 2V DATE: 03/26/2025 02:19 INDICATION: Dyspnea TECHNIQUE: frontal and lateral views of the chest were obtained. COMPARISON: Chest radiograph dated 12/05/[address] dated 12/03/2023 FINDINGS: Hyperexpansion lungs with increased lucency and architectural distortion consistent with moderate emphysema better appreciated on prior CT. Small calcified nodules in the right lower lung consistent with old granulomatous disease. Unchanged bandlike atelectasis/scarring in the right lower lobe best appreciated on the lateral projection. Additional unchanged mild discoid atelectasis/scarring along the left major fissure. Additional bibasilar pleural- parenchymal scarring with blunting at the costophrenic angles. The cardiomediastinal silhouette is normal. Visualized bones and soft tissues are unremarkable. IMPRESSION: 1. Unchanged bandlike discoid atelectasis/scarring in the right lower lobe and along the left major fissure with additional pleural parenchymal scarring at the bilateral costophrenic angles. 2. Emphysema. Reviewed, dictated and finalized at location A. IMPRESSION: 1. Unchanged bandlike discoid atelectasis/scarring in the right lower lobe and along the left major fissure with additional pleural parenchymal scarring at th e bilateral costophrenic angles. 2. Emphysema.
--- NOTE | ~2025-03-26 | XR_ITS ---
EXAM/PROCEDURE: XR chest 1V portable - 03/27/2025 12:12 CDT HISTORY: 79 years old Male with rapid response TECHNIQUE: Two view(s) of the chest. COMPARISON: 03/26/2025 FINDINGS: LUNGS/ PLEURA: Diffuse interstitial thickening in the left lung. Bilateral pulmonary vascular congestion. Bilateral perihilar bronchial wall thickening. No large pleural effusion or pneumothorax. HEART/ MEDIASTINUM: Heart appears normal in size. Atherosclerotic calcifications are seen in the aorta. BONES: Degenerative changes. OTHER: Visualized upper abdomen is unremarkable. IMPRESSION: Diffuse interstitial thickening in the left lung. Bilateral pulmonary vascular congestion. Bilateral perihilar bronchial wall thickening. Findings can represent CHF versus pneumonia in appropriate clinical settings.. Findings can represent pneumonia in appropriate clinical settings. Clinical correlation is recommended. Short-term follow-up chest radiograph is recommended after appropriate clinical therapy to document stability and/or resolution. Reviewed, dictated and finalized at location N. IMPRESSION: Diffuse interstitial thickening in the left lung. Bilateral pulmonary vascular congestion. Bilateral perihilar bronchial wall thickening. Findings can represe nt CHF versus pneumonia in appropriate clinical settings.. Findings can represe nt pneumonia in appropriate clinical settings. Clinical correlation is recommen ded. Short-term follow-up chest radiograph is recommended after appropriate cli nical therapy to document stability and/or resolution.
--- NOTE | ~2025-03-26 | CT_ITS ---
EXAMINATION: CTA abdomen pelvis DATE: 03/26/2025 04:04 INDICATION: Abdominal pain. Possible dissection. TECHNIQUE: Computed tomographic angiography (CTA) of the abdomen and pelvis was performed with 100 mL Omnipaque-350 intravenous contrast. Additional 3D reconstructions utilizing rotating maximum intensity projection (MIP) were performed. Automated exposure control and iterative reconstruction technique were employed. The dose-length product was 224.64 mGy-cm. COMPARISON: 03/26/2025 at 2:13 AM FINDINGS: Severe emphysema in the visualized lower lungs. Linear band of atelectasis/scarring with associated volume loss in the right lower lobe. Additional discoid atelectasis in the lingula along the major fissure. Small calcified nodule right lower lung along with calcified right hilar lymph nodes consistent with old granulomatous disease. Heart size is normal. Atherosclerotic coronary artery calcification. No pericardial or pleural effusion. Decrease in size of a likely benign chronic 3.9 cm cystic lesion at the dome of the liver which has decreased in size from 5.[address] dated 05/18/13. Gallbladder, spleen, pancreas and bilateral adrenal glands are normal. There are multiple bilateral renal cysts the largest on the left measuring up to 3.9 cm. Couple small regions of cortical scarring at the left kidney. No bowel obstruction. Excreted contrast in the bladder. Large right hydrocele in the scrotum. No free intraperitoneal gas or fluid. No pathologically enlarged abdominal or pelvic lymphadenopathy. Abdominal aorta is normal in caliber but with a couple small penetrating atherosclerotic ulcers position along the right anterior and left posterior aspect of the infrarenal abdominal aorta. 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 Additional small penetrating atherosclerotic ulcers along the bilateral common iliac and internal iliac arteries. Extensive atherosclerotic plaque along the aorta and many of the other arteries in the abdomen, pelvis and proximal thighs. There are moderate stenoses at the right external iliac and proximal right superficial femoral arteries. Moderate lumbar and lower thoracic spondylosis. IMPRESSION: 1. Extensive atherosclerotic disease with a couple small penetrating atherosclerotic ulcers along the infrarenal abdominal aorta as well as along the bilateral common and internal iliac arteries. 2. Moderate stenosis at the right external iliac and proximal left femoral arteries. 3. Large right hydrocele. Reviewed, dictated and finalized at location A. IMPRESSION: 1. Extensive atherosclerotic disease with a couple small penetrating atheroscle rotic ulcers along the infrarenal abdominal aorta as well as along the bilatera l common and internal iliac arteries. 2. Moderate stenosis at the right external iliac and proximal left femoral alfred hanna. 3. Large right hydrocele.
--- NOTE | 2025-03-26 00:10 | ECG_ITS ---
Test Date: 2025-03-26 00:29:58 Measurements Intervals Savery Rate: 103 P: 79 ID: [id number] QRS: -28 QRSD: 86 T: 62 QT: 338 QTc: 443 Interpretive Statements SINUS TACHYCARDIA ANTEROSEPTAL MYOCARDIAL INFARCTION , OF INDETERMINATE AGE [40+ ms Q WAVE IN V1-V4] LEFT AXIS DEVIATION ABNORMAL ECG No previous ECG available for comparison Electronically Signed On 03-26-2025 11:12:15 CDT by Justo Montesinos M.D.
--- NOTE | 2025-03-26 00:46 | ED_ITS ---
HPI - SOB/Dyspnea General Chief Complaint: Shortness of Breath/Dyspnea <Tash Palmer PA-C - Last Filed: 03/26/25 03:03> Stated Complaint: Difficulty breathing since Monday <Tash Plamer PA-C - Last Filed: 03/26/25 03:03> Time Seen by Provider: 03/26/25 00:29 <SHUKRI Vieira Last Filed: 03/26/25 03:03> History of Present Illness HPI Narrative: 79-year-old male with history of COPD, chronic hypoxic respiratory failure on 2 L nasal cannula baseline, hypertension, GERD presents to the emergency department for difficulty breathing for the past 3 days. Patient's daughter and granddaughter at bedside to assist with history. States he went over to the patient's house today and found that he is having increased work of breathing so brought him to the ED for further evaluation. The patient states he did increase his oxygen from 2 L to 3 L today due to dyspnea. He reports exertional dyspnea, productive cough with phlegm. He denies fever, chest pain, lower extremity edema, hemoptysis, history of VTE. Patient notes that he ran out of his albuterol nebulizers about a month ago and has been unable to refill them due to insurance issues. He is been using albuterol inhalers without improvement. He denies recent steroid use. His campaign management senior manager is Dr. Pal. Patient admits to smoking 10 cigarettes per day. He has been smoking for 50 years. Patient also is endorsing intermittent right lower quadrant abdominal pain. He has a known umbilical hernia which he states is nontender and easily reduced. <Tash Palmer PA-C - Last Filed: 03/26/25 03:03> Related Data Home Medications: Home Medications ?Medication ?Instructions ?Recorded ?Confirmed ?Last Taken ?Type famotidine 20 mg tablet (Pepcid AC) 20 mg PO DAILY 01/30/25 Unknown History <SHUKRI Vieira Last Filed: 03/26/25 03:03> Allergies/Adverse Reactions: Allergies Allergy/AdvReac Type Severity Reaction Status Date / Time No Known Allergies Allergy Verified 03/26/25 00:40 <SHUKRI Vieira Last Filed: 03/26/25 03:03> Review of Systems 2 Review of Systems: All systems reviewed & are unremarkable except as noted in HPI and below <Tash Palmer PA-C - Last Filed: 03/26/25 03:03> [facility] Past Medical History Medical History: Medical History Environmental allergies B12 deficiency History of COVID-19 (~08/2021) Essential (primary) hypertension GERD without esophagitis History of kidney stones Tobacco abuse Acute respiratory failure (~04/2020) COPD (chronic obstructive pulmonary disease) <Tash Palmer PA-C - Last Filed: 03/26/25 03:03> Surgical History Surgical History: Surgical History H/O cataract extraction (~2018) <Tash Palmer PA-C - Last Filed: 03/26/25 03:03> Family History Family History: Family History Mother Excessive bleeding Cancer <Tash Palmer PA-C - Last Filed: 03/26/25 03:03> Social History Social History: Social History Social History: He lives with and she is his durable power schedule supervisor for healthcare. He has 4 children. He is retired from being a medical instruction for medical students. He continues to smoke at least a pack a cigarettes a day and is not interested in smoking cessation. He does not use any alcohol marijuana or illicit drugs. Code status DNR Smoking packs per day: 0.5 Smoking cigarettes per day: 10.0 Years smoked: 50 Smoking pack-years: 25.00 Smoking status: Current every day smoker Second hand tobacco smoke exposure: Yes Alcohol intake: never Substance use: never Substance use type: does not use Do You Feel Safe in your Home?: Yes Lack of Transportation: No Lack of Food: Never True Current Housing: I Have Housing Concerned About Future Housing: No Difficulty Paying Gas/Electric Bills: No Difficulty Paying for Meds: No Currently Unemployed: No Education: Master's Degree or Higher Difficulty w/ Childcare or Family Care: YES Living arrangements: with family Additional living arrangements comments: Occupation/Education: retired Gender identity (if verbalized by the patient): Male Sexual Orientation (if Verbalized by the Patient): Straight or Heterosexual Spiritual care concerns: No Agree to blood products: Yes <Tash Palmer PA-C - Last Filed: 03/26/25 03:03> Exam 2 Narrative: GENERAL: Well-appearing, well-nourished, and in no acute distress. HEAD: Normocephalic, atraumatic. EYES: EOMI. ENT: Nares clear, no rhinorrhea or epistaxis. Mucous membranes moist. NECK: Supple. CHEST: Decreased lung sounds throughout all lung gaytan. Patient satting 98% on 3 L nasal cannula, speaking in full sentences. Actively coughing on exam HEART: Regular rate and rhythm. No murmur heard. Normal peripheral pulses. ABDOMEN: Soft umbilical hernia that is easily reduced and nontender. Tenderness to the right lower quadrant with no rebound or rigidity. No CVA tenderness. Normoactive bowel sounds. EXTREMITIES: Normal range of motion. No edema. Negative Homans bilaterally SKIN: Warm, dry, no rash. NEURO: No focal deficits. Alert and oriented x3 <SHUKRI Vieira Last Filed: 03/26/25 03:03> Course Vital Signs Vital signs: Vital Signs Temperature 98.1 F 03/26/25 00:11 Pulse Rate 104 H 03/26/25 00:11 Respiratory Rate 26 H 03/26/25 00:11 Blood Pressure 192/92 H 03/26/25 00:11 Pulse Oximetry 91 03/26/25 00:11 Oxygen Delivery Nasal Cannula 03/26/25 00:11 Oxygen Flow Rate 3 03/26/25 00:11 Temperature 98.1 F 03/26/25 00:11 Pulse Rate 88 03/26/25 05:46 Respiratory Rate 19 03/26/25 05:46 Blood Pressure 118/75 03/26/25 05:46 Pulse Oximetry 97 03/26/25 05:46 Oxygen Delivery Nasal Cannula 03/26/25 01:38 Oxygen Flow Rate 2 03/26/25 01:38 Fraction of Inspired Oxygen 30 03/26/25 01:38 <Tash Palmer PA-C - Last Filed: 03/26/25 03:03> Vital Signs Temperature 98.1 F 03/26/25 00:11 Pulse Rate 104 H 03/26/25 00:11 Respiratory Rate 26 H 03/26/25 00:11 Blood Pressure 192/92 H 03/26/25 00:11 Pulse Oximetry 91 03/26/25 00:11 Oxygen Delivery Nasal Cannula 03/26/25 00:11 Oxygen Flow Rate 3 03/26/25 00:11 Temperature 98.1 F 03/26/25 00:11 Pulse Rate 88 03/26/25 05:46 Respiratory Rate 19 03/26/25 05:46 Blood Pressure 118/75 03/26/25 05:46 Pulse Oximetry 97 03/26/25 05:46 Oxygen Delivery Nasal Cannula 03/26/25 01:38 Oxygen Flow Rate 2 03/26/25 01:38 Fraction of Inspired Oxygen 30 03/26/25 01:38 <Flavio Hylton MD - Last Filed: 03/26/25 06:11> MDM - SOB/Dyspnea MDM Narrative Medical decision making narrative: 79-year-old male with history of COPD and chronic hypoxic respiratory failure normally on 2 L nasal cannula presents emergency department for dyspnea, productive cough, increased O2 demand. He is also endorsing intermittent right lower quadrant abdominal pain. Vitals with hypertension and mild tachycardia 103. Patient is satting 98% on 3 L nasal cannula. He is speaking in full sentences. Lung sounds are significantly decreased throughout all lung gaytan. CBC without leukocytosis or anemia. Chemistries with chronically elevated CO2 of 34. ABG consistent with CO2 retention with a pH is 7.392, pCO2 54.4, PO2 107.7, bicarb of 32.3. Viral swabs are negative. ProBNP is elevated at 572, however this is normal when age adjusted. Patient does not appear to be volume overloaded. D-dimer is elevated to 0.77, PE excluded with YEARS criteria. EKG shows sinus tachycardia with a rate of 103, peak T-waves in the lateral leads and Q-waves in V3 which appears chronic in comparison to prior EKGs. No ST elevations or depressions. Potassium normal. Patient has received IV magnesium, 25 mg of Solu-Medrol and an hour long DuoNeb with minimal improvement. His O2 was decreased back to 2 L nasal cannula and he is satting 94% in no distress. Lung sounds remain very tight decreased throughout. Pending CT abdomen pelvis and chest x-ray read by stat read at time of sign-out to Dr. Hylton. <Tash Palmer PA-C - Last Filed: 03/26/25 03:03> Lab Data Result diagrams: 03/26/25 00:41 03/26/25 00:41 <Tash Palmer PA-C - Last Filed: 03/26/25 03:03> Labs: Lab Results 03/26/25 03/26/25 03/26/25 Range/Units 00:23 00:41 00:59 WBC 9.0 (4.5-10.0) K/mm3 RBC 4.93 (4.6-6.20) M/mm3 Hgb 14.7 (14.0-18.0) g/dL Hct 45.9 (42.0-52.0) % MCV 93.1 (80-100) fl MCH 29.8 (26-34) pg MCHC 32.0 (32-36) g/dl RDW 13.4 (11.5-14.5) % Plt Count 216 (150-375) k/mm3 MPV 9.9 (7.4-10.4) fl Immature Gran % (Auto) 0.2 (0-0.5) % Neut % (Auto) 65.7 (45.5-73.1) % Lymph % (Auto) 13.1 L (18.3-44.2) % [place] % (Auto) 7.3 (2.6-8.5) % Eos % (Auto) 13.4 H (0-4.4) % Baso % (Auto) 0.3 (0.2-1.2) % Lymph # (Auto) 1.17 (0.9-3.2) K/mm3 [place] # (Auto) 0.7 H (0.1-0.6) K/mm3 Eos # (Auto) 1.2 H (0-0.3) K/mm3 Baso # (Auto) 0.0 (0.0-0.1) K/mm3 Abs Immat Gran (auto) 0.02 (0.00-0.031) K/mm3 Absolute Neuts (auto) 5.9 (1.3-6.7) K/mm3 Absolute Nucleated RBC 0.000 (0.0-0.012) K/mm3 Nucleated RBC % 0.0 (0.0-0.2) % PT 13.3 (11.1-14.7) Seconds INR 1.0 APTT 33.5 (22.3-36.8) Seconds D-Dimer Cancelled Sodium 136 L (137-145) mmol/L Potassium 3.7 (3.4-5.0) mmol/L Chloride 96 L (98-107) mmol/L Carbon Dioxide 34 H (22-30) mmol/L Anion Gap 6 (4-12) mmol/L BUN 24 H (9-20) mg/dL Creatinine 0.85 (0.7-1.3) mg/dL Estim Creat Clear Calc 47 ml/min Estimated GFR > 60 (59 - ) Glucose 112 H (65-110) mg/dL Lactic Acid (0.7-2.0) mmol/L Calcium 9.6 (8.4-10.2) mg/dL Total Bilirubin 0.6 (0.2-1.3) mg/dL AST 35 (17-59) U/L ALT 19 (6-50) U/L Alkaline Phosphatase 81 (38-126) U/L Troponin I < 0.012 (0.000-0.034) ng/mL NT-Pro-B Natriuret Pep 572 H (19.9-100) pg/mL Total Protein 7.3 (6.3-8.2) g/dL Albumin 4.2 (3.5-5.1) g/dL Lipase 86 (23-300) U/L Influenza A (RT-PCR) Negative (Negative) Influenza B (RT-PCR) Negative (Negative) RSV (RT-PCR) Negative (Negative) SARS-CoV-2 RNA (RT-PCR) Negative (Negative) 03/26/25 Range/Units 00:59 WBC (4.5-10.0) K/mm3 RBC (4.6-6.20) M/mm3 Hgb (14.0-18.0) g/dL Hct (42.0-52.0) % MCV (80-100) fl MCH (26-34) pg MCHC (32-36) g/dl RDW (11.5-14.5) % Plt Count (150-375) k/mm3 MPV (7.4-10.4) fl Immature Gran % (Auto) (0-0.5) % Neut % (Auto) (45.5-73.1) % Lymph % (Auto) (18.3-44.2) % [place] % (Auto) (2.6-8.5) % Eos % (Auto) (0-4.4) % Baso % (Auto) (0.2-1.2) % Lymph # (Auto) (0.9-3.2) K/mm3 [place] # (Auto) (0.1-0.6) K/mm3 Eos # (Auto) (0-0.3) K/mm3 Baso # (Auto) (0.0-0.1) K/mm3 Abs Immat Gran (auto) (0.00-0.031) K/mm3 Absolute Neuts (auto) (1.3-6.7) K/mm3 Absolute Nucleated RBC (0.0-0.012) K/mm3 Nucleated RBC % (0.0-0.2) % PT (11.1-14.7) Seconds INR APTT (22.3-36.8) Seconds D-Dimer 0.77 H Sodium (137-145) mmol/L Potassium (3.4-5.0) mmol/L Chloride (98-107) mmol/L Carbon Dioxide (22-30) mmol/L Anion Gap (4-12) mmol/L BUN (9-20) mg/dL Creatinine (0.7-1.3) mg/dL Estim Creat Clear Calc ml/min Estimated GFR (59 - ) Glucose (65-110) mg/dL Lactic Acid 0.7 (0.7-2.0) mmol/L Calcium (8.4-10.2) mg/dL Total Bilirubin (0.2-1.3) mg/dL AST (17-59) U/L ALT (6-50) U/L Alkaline Phosphatase (38-126) U/L Troponin I (0.000-0.034) ng/mL NT-Pro-B Natriuret Pep (19.9-100) pg/mL Total Protein (6.3-8.2) g/dL Albumin (3.5-5.1) g/dL Lipase (23-300) U/L Influenza A (RT-PCR) (Negative) Influenza B (RT-PCR) (Negative) RSV (RT-PCR) (Negative) SARS-CoV-2 RNA (RT-PCR) (Negative) <Tash Palmer PA-C - Last Filed: 03/26/25 03:03> Lab Results 03/26/25 03/26/25 03/26/25 Range/Units 00:23 00:41 00:59 WBC 9.0 (4.5-10.0) K/mm3 RBC 4.93 (4.6-6.20) M/mm3 Hgb 14.7 (14.0-18.0) g/dL Hct 45.9 (42.0-52.0) % MCV 93.1 (80-100) fl MCH 29.8 (26-34) pg MCHC 32.0 (32-36) g/dl RDW 13.4 (11.5-14.5) % Plt Count 216 (150-375) k/mm3 MPV 9.9 (7.4-10.4) fl Immature Gran % (Auto) 0.2 (0-0.5) % Neut % (Auto) 65.7 (45.5-73.1) % Lymph % (Auto) 13.1 L (18.3-44.2) % [place] % (Auto) 7.3 (2.6-8.5) % Eos % (Auto) 13.4 H (0-4.4) % Baso % (Auto) 0.3 (0.2-1.2) % Lymph # (Auto) 1.17 (0.9-3.2) K/mm3 [place] # (Auto) 0.7 H (0.1-0.6) K/mm3 Eos # (Auto) 1.2 H (0-0.3) K/mm3 Baso # (Auto) 0.0 (0.0-0.1) K/mm3 Abs Immat Gran (auto) 0.02 (0.00-0.031) K/mm3 Absolute Neuts (auto) 5.9 (1.3-6.7) K/mm3 Absolute Nucleated RBC 0.000 (0.0-0.012) K/mm3 Nucleated RBC % 0.0 (0.0-0.2) % PT 13.3 (11.1-14.7) Seconds INR 1.0 APTT 33.5 (22.3-36.8) Seconds D-Dimer Cancelled Sodium 136 L (137-145) mmol/L Potassium 3.7 (3.4-5.0) mmol/L Chloride 96 L (98-107) mmol/L Carbon Dioxide 34 H (22-30) mmol/L Anion Gap 6 (4-12) mmol/L BUN 24 H (9-20) mg/dL Creatinine 0.85 (0.7-1.3) mg/dL Estim Creat Clear Calc 47 ml/min Estimated GFR > 60 (59 - ) Glucose 112 H (65-110) mg/dL Lactic Acid (0.7-2.0) mmol/L Calcium 9.6 (8.4-10.2) mg/dL Total Bilirubin 0.6 (0.2-1.3) mg/dL AST 35 (17-59) U/L ALT 19 (6-50) U/L Alkaline Phosphatase 81 (38-126) U/L Troponin I < 0.012 (0.000-0.034) ng/mL NT-Pro-B Natriuret Pep 572 H (19.9-100) pg/mL Total Protein 7.3 (6.3-8.2) g/dL Albumin 4.2 (3.5-5.1) g/dL Lipase 86 (23-300) U/L Influenza A (RT-PCR) Negative (Negative) Influenza B (RT-PCR) Negative (Negative) RSV (RT-PCR) Negative (Negative) SARS-CoV-2 RNA (RT-PCR) Negative (Negative) 03/26/25 Range/Units 00:59 WBC (4.5-10.0) K/mm3 RBC (4.6-6.20) M/mm3 Hgb (14.0-18.0) g/dL Hct (42.0-52.0) % MCV (80-100) fl MCH (26-34) pg MCHC (32-36) g/dl RDW (11.5-14.5) % Plt Count (150-375) k/mm3 MPV (7.4-10.4) fl Immature Gran % (Auto) (0-0.5) % Neut % (Auto) (45.5-73.1) % Lymph % (Auto) (18.3-44.2) % [place] % (Auto) (2.6-8.5) % Eos % (Auto) (0-4.4) % Baso % (Auto) (0.2-1.2) % Lymph # (Auto) (0.9-3.2) K/mm3 [place] # (Auto) (0.1-0.6) K/mm3 Eos # (Auto) (0-0.3) K/mm3 Baso # (Auto) (0.0-0.1) K/mm3 Abs Immat Gran (auto) (0.00-0.031) K/mm3 Absolute Neuts (auto) (1.3-6.7) K/mm3 Absolute Nucleated RBC (0.0-0.012) K/mm3 Nucleated RBC % (0.0-0.2) % PT (11.1-14.7) Seconds INR APTT (22.3-36.8) Seconds D-Dimer 0.77 H Sodium (137-145) mmol/L Potassium (3.4-5.0) mmol/L Chloride (98-107) mmol/L Carbon Dioxide (22-30) mmol/L Anion Gap (4-12) mmol/L BUN (9-20) mg/dL Creatinine (0.7-1.3) mg/dL Estim Creat Clear Calc ml/min Estimated GFR (59 - ) Glucose (65-110) mg/dL Lactic Acid 0.7 (0.7-2.0) mmol/L Calcium (8.4-10.2) mg/dL Total Bilirubin (0.2-1.3) mg/dL AST (17-59) U/L ALT (6-50) U/L Alkaline Phosphatase (38-126) U/L Troponin I (0.000-0.034) ng/mL NT-Pro-B Natriuret Pep (19.9-100) pg/mL Total Protein (6.3-8.2) g/dL Albumin (3.5-5.1) g/dL Lipase (23-300) U/L Influenza A (RT-PCR) (Negative) Influenza B (RT-PCR) (Negative) RSV (RT-PCR) (Negative) SARS-CoV-2 RNA (RT-PCR) (Negative) <Flavio Hylton MD - Last Filed: 03/26/25 06:11> ABG Data ABG results: 03/26/25 01:04 Puncture Site Right radial ABG pH 7.392 ABG pCO2 54.4 H ABG pO2 107.7 H ABG PO2/FiO2 Ratio 3.59 ABG HCO3 32.3 H ABG O2 Saturation 97.8 ABG O2 Content 19.4 ABG Base Excess 5.8 A-a Gradient 42.3 Oxyhemoglobin 92.7 Total Hemoglobin 14.8 O2 Delivery Device Nasal cannula O2 Liters/Min 3.0 FiO2 30 <Tash Palmer PA-C - Last Filed: 03/26/25 03:03> 03/26/25 01:04 Puncture Site Right radial ABG pH 7.392 ABG pCO2 54.4 H ABG pO2 107.7 H ABG PO2/FiO2 Ratio 3.59 ABG HCO3 32.3 H ABG O2 Saturation 97.8 ABG O2 Content 19.4 ABG Base Excess 5.8 A-a Gradient 42.3 Oxyhemoglobin 92.7 Total Hemoglobin 14.8 O2 Delivery Device Nasal cannula O2 Liters/Min 3.0 FiO2 30 <Flavio Hylton MD - Last Filed: 03/26/25 06:11> Medical Decision Making MDM Documentation: Patient signed out pending CT abdomen/pelvis and chest x-ray read. Chest x-ray showed right lower lobe pneumonia. CT abdomen/pelvis showed possible concerns for aortic dissection in CTA was recommended. CTA showed no evidence of aortic dissection of, did reveal evidence of a gastritis and continue to show the right lower lobe pneumonia. On re-evaluation, patient was feeling much better, but did continue to have significant coarse breath sounds. He will require admission for pneumonia and COPD exacerbation. Case was discussed with hospitalist who will admit the patient. <Flavio Hylton MD - Last Filed: 03/26/25 06:11> Discharge Plan Discharge Clinical Impression: Acute exacerbation of chronic obstructive pulmonary disease CAP (community acquired pneumonia) Qualifiers: Laterality: right Lung location: lower lobe of lung Qualified Code(s): J18.9 - Pneumonia, unspecified organism Gastritis Qualifiers: Gastritis type: unspecified gastritis Chronicity: unspecified Gastritis bleeding: without bleeding Qualified Code(s): K29.70 - Gastritis, unspecified, without bleeding <Tash Palmer PA-C - Last Filed: 03/26/25 03:03> Patient Disposition: Still a Patient <Tash Palmer PA-C - Last Filed: 03/26/25 03:03> Condition: Stable <aTsh Palmer PA-C - Last Filed: 03/26/25 03:03>
[2025-03-26 00:53] LABS: Hematocrit 45.9 % (42.0-52.0); Hemoglobin 14.7 g/dL (14.0-18.0); Immature Granulocyte Percent A 0.2 % (0-0.5); Lymphocytes Absolute Auto 1.17 K/mm3 (0.9-3.2); Mean Corpuscular HGB Conc 32.0 g/dl (32-36); Mean Corpuscular Hemoglobin 29.8 pg (26-34); Mean Corpuscular Volume 93.1 fl (80-100); Nucleated Red Blood Cells Absolute Auto 0.000 K/mm3 (0.0-0.012); Nucleated Red Blood Cells Perc 0.0 % (0.0-0.2); Platelet Count Result 216 k/mm3 (150-375); Red Blood Count 4.93 M/mm3 (4.6-6.20); White Blood Count 9.0 K/mm3 (4.5-10.0)
[2025-03-26] MEDS: MAGNESIUM SULF 2 GM/WATER 50ML 2 GM/50 ML BAG IVPB (01:01)
[2025-03-26 01:12] LABS: Alanine Aminotransferase 19 U/L (6-50); Albumin Level 4.2 g/dL (3.5-5.1); Alkaline Phosphatase 81 U/L (38-126); Anion Gap 6 mmol/L (4-12); Aspartate Amino Transferase 35 U/L (17-59); Bilirubin,Total 0.6 mg/dL (0.2-1.3); Blood Urea Nitrogen 24 mg/dL (9-20); Calcium 9.6 mg/dL (8.4-10.2); Carbon Dioxide 34 mmol/L (22-30); Chloride 96 mmol/L (98-107); Estimated CRCL calculation 47 ml/min; Estimated Glomerular Filt Rate > 60; Glucose 112 mg/dL (65-110); Lipase 86 U/L (23-300); Potassium 3.7 mmol/L (3.4-5.0); Sodium 136 mmol/L (137-145); Total Protein 7.3 g/dL (6.3-8.2)
[2025-03-26 01:17] LABS: Alveolar/Arterial O2 Gradient 42.3 mmHg; Fractional Inspired Oxygen 30 %; HCO3 ABG 32.3 mEq/l (22.0-26.0); Oxygen Content ABG 19.4 %vol (16.0-22.0); Oxygen Saturation ABG 97.8 % (95.0-100.0); PCO2 ABG 54.4 mmHg (35.0-45.0); PO2 ABG 107.7 mmHg (80.0-100.0); PO2 FiO2 Ratio Arterial Blood 3.59 %
[2025-03-26 01:18] LABS: Influenza A QL RT-PCR Negative (Negative); Influenza B QL RT-PCR Negative (Negative); RSV RNA, RT-PCR Negative (Negative); SARS-CoV-2 RNA PCR Negative (Negative)
[2025-03-26 01:19] LABS: NT Pro B Type Natriuretic Pept 572 pg/mL (19.9-100)
[2025-03-26 01:22] LABS: INR 1.0; Prothrombin Time 13.3 Seconds (11.1-14.7)
[2025-03-26 01:24] LABS: Partial Thromboplastin Time 33.5 Seconds (22.3-36.8)
[2025-03-26] MEDS: IPRATROPIUM 0.5 MG/ALBUTEROL SULFATE 2.5 MG AMPUL.NEB 3 ML 10 ML INHALATION (01:36)
[2025-03-26 01:40] LABS: Liters per Minute 3.0 LPM; Modified Allen's Test Pass; Site Drawn RIGHT RADIAL
[2025-03-26 01:41] LABS: Troponin I < 0.012 ng/mL (0.000-0.034)
--- NOTE | 2025-03-26 02:25 | PCRCNOTE ---
RCS original order for q20 minutes 3 dose tx was changed to a continuous duo neb per verbal order from Dr. Palmer
--- NOTE | 2025-03-26 06:09 | PC.NURSE ---
Kourtney [phone] Grand daughter would like a call when he gets a room number.
[2025-03-26] MEDS: FUROSEMIDE INJ 40 MG/4 ML VIAL 20 MG IV PUSH (09:42)
[2025-03-26] MEDS: IPRATROPIUM 0.5 MG/ALBUTEROL SULFATE 2.5 MG AMPUL.NEB 3 ML INHALATION ×3 (09:58→19:40)
[2025-03-26] MEDS: PANTOPRAZOLE 40 MG TABLET PO ×2 (10:25→21:29)
[2025-03-26] MEDS: cefTRIAXone 1 GM in SODIUM CHLORIDE 0.9% IV 50 ML 100 ML IVPB (10:27)
--- NOTE | 2025-03-26 10:33 | PC.NURSE ---
antibiotic was late to hang due to needing to draw blood cultures
--- NOTE | 2025-03-26 10:52 | ADMGEN ---
This patient, Murali Koenig, was admitted to [facility] Surg Room 331-02. Patient/family oriented to hospital policies and general routines including ID bracelet, bed and alarms, visiting hours, pain management, procedures, bathroom and other care routines, personal items, smoking policy, room service/diet, and visiting hours. Information on how to activate the Rapid Response Team has been discussed. Patient/Family are encouraged to report perceived risks to care and to ask questions if they do not understand what they are told or what they should do.
[2025-03-26] MEDS: AZITHROMYCIN 250 MG/NS 250 ML 250 MG/250 ML BAG IVPB (11:10)
--- NOTE | 2025-03-26 14:16 | PM.IMHP ---
H&P: HPI History of Present Illness Date/Time: 03/26/25 14:16 Chief Complaint: SOB Narrative: 79-year-old male with history of COPD, chronic hypoxic respiratory failure on 2 L nasal cannula baseline, hypertension, GERD presents to the emergency department for difficulty breathing for the past 3 days. . The patient states he did increase his oxygen from 2 L to 3 L today due to dyspnea. He reports exertional dyspnea, productive cough with phlegm. He denies fever, chest pain, lower extremity edema, hemoptysis, history of VTE. Patient notes that he ran out of his albuterol nebulizers about a month ago and has been unable to refill them due to insurance issues. He is been using albuterol inhalers without improvement. He denies recent steroid use. His manager regional sales is Dr. Pal. Patient admits to smoking 10 cigarettes per day. He has been smoking for 50 years. Patient also is endorsing intermittent right lower quadrant abdominal pain. He has a known umbilical hernia Review of Systems Review of Systems: All systems reviewed & are unremarkable except as noted in HPI and below PMFSH Past Medical History Medical History Environmental allergies B12 deficiency History of COVID-19 (~08/2021) Essential (primary) hypertension GERD without esophagitis History of kidney stones Tobacco abuse Acute respiratory failure (~04/2020) COPD (chronic obstructive pulmonary disease) Surgical History Surgical History H/O cataract extraction (~2018) Family History Family History Mother Excessive bleeding Cancer Social History Social History Social History: He lives with and she is his durable power tax associate attorney for healthcare. He has 4 children. He is retired from being a medical instruction for medical students. He continues to smoke at least a pack a cigarettes a day and is not interested in smoking cessation. He does not use any alcohol marijuana or illicit drugs. Code status DNR Smoking packs per day: 0.5 Smoking cigarettes per day: 10.0 Years smoked: 50 Smoking pack-years: 25.00 Smoking status: Current every day smoker Second hand tobacco smoke exposure: Yes Alcohol intake: never Substance use: never Substance use type: does not use Do You Feel Safe in your Home?: Yes Lack of Transportation: No Lack of Food: Never True Current Housing: I Have Housing Concerned About Future Housing: No Difficulty Paying Gas/Electric Bills: No Difficulty Paying for Meds: No Currently Unemployed: No Education: Master's Degree or Higher Difficulty w/ Childcare or Family Care: YES Living arrangements: with family Additional living arrangements comments: Occupation/Education: retired Gender identity (if verbalized by the patient): Male Sexual Orientation (if Verbalized by the Patient): Straight or Heterosexual Spiritual care concerns: No Agree to blood products: Yes Meds Home Medications and Allergies Home Medications ?Medication ?Instructions ?Recorded ?Confirmed ?Type famotidine 20 mg tablet (Pepcid AC) 20 mg PO DAILY 10/03/22 03/26/25 History inhalational spacing device #10 ea 11/24/22 03/26/25 Rx (Aerochamber Plus Flow-Vu) albuterol sulfate 1.25 mg/3 mL 1.25 mg (3 mL) inhalation Q6H PRN 01/30/25 03/26/25 Rx solution for nebulization shortness of breath or wheezing #360 mL nebulizer accessories #1 ea 01/30/25 03/26/25 Rx hydrochlorothiazide 25 mg tablet 25 mg PO DAILY #90 tabs 02/10/25 03/26/25 Rx albuterol sulfate 90 mcg/actuation 1 - 2 puff inhalation Q6H PRN 02/11/25 03/26/25 Rx aerosol inhaler shortness of breath or wheezing #8.5 grams fluticasone fur. 100 mcg-umeclid See Rx Instructions .Route 02/12/25 03/26/25 Rx 62.5 mcg-vilant 25 mcg .COMPLEX #60 ea inhalat.powder (Trelegy Ellipta) aspirin 81 mg tablet,delayed 81 mg PO DAILY PRN joint pain 03/26/25 03/26/25 History release (Adult Aspirin Regimen) docusate sodium 100 mg capsule 100 mg PO DAILY PRN constipation 03/26/25 03/26/25 History (Col-Rite) Allergies Allergy/AdvReac Type Severity Reaction Status Date / Time No Known Allergies Allergy Verified 03/26/25 10:58 Vital Signs Vital Signs - 24 hr 03/26/25 00:11 03/26/25 00:29 03/26/25 00:37 Temperature 98.1 F Pulse Rate 104 H 103 H Respiratory Rate 26 H 16 Blood Pressure 192/92 H 157/87 H Pulse Oximetry 91 98 98 Oxygen Delivery Nasal Cannula Room Air Nasal Cannula Oxygen Flow Rate 3 3 Fraction of Inspired Oxygen 03/26/25 01:20 03/26/25 01:38 03/26/25 01:38 Temperature Pulse Rate 93 93 Respiratory Rate 20 20 Blood Pressure Pulse Oximetry 100 Oxygen Delivery Nasal Cannula Oxygen Flow Rate 2 Fraction of Inspired Oxygen 30 03/26/25 02:23 03/26/25 02:46 03/26/25 03:06 Temperature Pulse Rate 103 H 104 H 84 Respiratory Rate 25 H 17 13 Blood Pressure 141/73 H 127/59 L 113/63 Pulse Oximetry 95 95 91 Oxygen Delivery Oxygen Flow Rate Fraction of Inspired Oxygen 03/26/25 03:08 03/26/25 03:32 03/26/25 04:31 Temperature Pulse Rate 104 H 84 94 Respiratory Rate 13 19 Blood Pressure 116/56 L 116/70 Pulse Oximetry 94 96 Oxygen Delivery Oxygen Flow Rate Fraction of Inspired Oxygen 03/26/25 05:31 03/26/25 05:46 03/26/25 07:31 Temperature 97.7 F Pulse Rate 80 88 84 Respiratory Rate 13 19 20 Blood Pressure 116/66 118/75 112/69 Pulse Oximetry 96 97 97 Oxygen Delivery Oxygen Flow Rate Fraction of Inspired Oxygen 03/26/25 10:01 03/26/25 10:02 03/26/25 10:05 Temperature Pulse Rate 76 74 80 Respiratory Rate 20 20 18 Blood Pressure Pulse Oximetry 96 Oxygen Delivery Nasal Cannula Oxygen Flow Rate 2 Fraction of Inspired Oxygen 03/26/25 11:12 03/26/25 11:20 03/26/25 13:59 Temperature 97.7 F 97.6 F Pulse Rate 86 75 Respiratory Rate 18 16 Blood Pressure 137/66 113/54 L Pulse Oximetry 97 97 98 Oxygen Delivery Nasal Cannula Oxygen Flow Rate 3 Fraction of Inspired Oxygen 03/26/25 14:03 Temperature Pulse Rate 80 Respiratory Rate 18 Blood Pressure Pulse Oximetry Oxygen Delivery Oxygen Flow Rate Fraction of Inspired Oxygen Exam Narrative: GENERAL: Well-appearing, well-nourished, and in no acute distress. On nasal cannula HEAD: Normocephalic, atraumatic. EYES: EOMI. ENT: Nares clear, no rhinorrhea or epistaxis. Mucous membranes moist. NECK: Supple. CHEST: Decreased lung sounds throughout all lung gaytan.Actively coughing on exam HEART: Regular rate and rhythm. No murmur heard. Normal peripheral pulses. ABDOMEN: Soft umbilical hernia that is easily reduced and nontender. Tenderness to the right lower quadrant with no rebound or rigidity. No CVA tenderness. Normoactive bowel sounds. EXTREMITIES: Normal range of motion. No edema. Negative Homans bilaterally SKIN: Warm, dry, no rash. NEURO: No focal deficits. Alert and oriented x3 H&P: Results Labs Labs: Short CBC 03/26/25 Range/Units 00:41 WBC 9.0 (4.5-10.0) K/mm3 Hgb 14.7 (14.0-18.0) g/dL Hct 45.9 (42.0-52.0) % Plt Count 216 (150-375) k/mm3 BMP 03/26/25 00:41 Sodium 136 L Potassium 3.7 Chloride 96 L Carbon Dioxide 34 H BUN 24 H Creatinine 0.85 Glucose 112 H Calcium 9.6 Cardiac Enzymes 03/26/25 Range/Units 00:41 Troponin I < 0.012 (0.000-0.034) ng/mL Liver Function 03/26/25 Range/Units 00:41 Total Bilirubin 0.6 (0.2-1.3) mg/dL AST 35 (17-59) U/L ALT 19 (6-50) U/L Alkaline Phosphatase 81 (38-126) U/L Albumin 4.2 (3.5-5.1) g/dL Assessment and Plan Assessment and plan (1) Essential (primary) hypertension: Code(s): I10 - Essential (primary) hypertension Status: Chronic (2) GERD without esophagitis: Code(s): K21.9 - Gastro-esophageal reflux disease without esophagitis Status: Acute (3) Gastritis: Qualifiers: Chronicity: unspecified Gastritis bleeding: without bleeding Gastritis type: unspecified gastritis Qualified Code(s): K29.70 - Gastritis, unspecified, without bleeding Code(s): K29.70 - Gastritis, unspecified, without bleeding Status: Acute (4) COPD (chronic obstructive pulmonary disease): Qualifiers: COPD type: unspecified COPD Qualified Code(s): J44.9 - Chronic obstructive pulmonary disease, unspecified Code(s): J44.9 - Chronic obstructive pulmonary disease, unspecified Status: Acute (5) Acute and chronic respiratory failure with hypoxia: Code(s): J96.21 - Acute and chronic respiratory failure with hypoxia Status: Acute (6) CAP (community acquired pneumonia): Qualifiers: Laterality: right Lung location: lower lobe of lung Qualified Code(s): J18.9 - Pneumonia, unspecified organism Code(s): J18.9 - Pneumonia, unspecified organism Status: Acute (7) Tobacco abuse: Code(s): Z72.0 - Tobacco use Status: Acute Plan 79-year-old male with history of COPD, chronic hypoxic respiratory failure on 2 L nasal cannula baseline, hypertension, GERD presents to the emergency department for difficulty breathing for the past [address] abdomen pelvis/chest suggestive of right lower lobe consolidation, gastritis. Tested negative for influenza a, COVID, RSV, urine strep, Legionella antigen 1. Acute on chronic respiratory failure: Admit to telemetry medicine Continue with O2 support Will start on DuoNebs, Symbicort Will start on Solu-Medrol Obtain blood culture Start on azithromycin, ceftriaxone Pulmonary consult Obtain echocardiogram Tobacco cessation counseling 2. Atherosclerotic disease: Denies abdominal pain Ulcerated atherosclerotic disease on CT abdomen Will benefit from vascular surgery referral as an outpatient Obtain lipid panel with next set of labs 3. Gastritis: Will start on PPI 4. Code status: Do not resuscitate 5. Pre diabetes: Monitor for hyperglycemia in setting of steroid use 6. DVT prophylaxis: Heparin subcu 7. Disposition: Admit to telemetry medicine Quality VTE Prophylaxis VTE prophylaxis: pharmacologic ordered Hospitalist [facility] Advance Care Plan I have confirmed that the patient's Advanced Care Plan is present, code status is documented, or surrogate decision maker is listed in patient medical record.: Yes Medication Reconciliation I have utilized all available resources to obtain, update and review the patients current medications (includes all prescriptions, OTC, herbals, cannabis, and nutritional supplements).: Yes
[2025-03-26] MEDS: FLUTICASONE/SALMETEROL 115-21 MCG INHALER 1 PUFF 2 PUFF INHALATION (19:40)
[2025-03-27] VITALS (24 sets, daily range): BP systolic 114–142; BP diastolic 53–69; PULSE 75–181; RESP 18–26; TEMP 36.6–36.9; O2SAT 92–99
[2025-03-27] MEDS: IPRATROPIUM 0.5 MG/ALBUTEROL SULFATE 2.5 MG AMPUL.NEB 3 ML INHALATION ×2 (02:08→07:15)
--- NOTE | 2025-03-27 06:31 | P.CDI_ITS ---
CDI Query Clarification Request BMI: 18.0 Nutritional Diagnostic Statement: Please refer to the comprehensive nutrition assessment for further information. If you agree with diagnosis of Severe protein calorie malnutrition related to chronic loss of appetite, increased energy expenditure from COPD as evidenced by intakes <75% needs >1 month; severe muscle wasting and fat loss. Please specify severity if known: * Mild * Moderate * Severe * Other/Unknown <Karena Dean RN - Last Filed: 03/27/25 06:35> Clarified Diagnosis Clarified Diagnosis: * Severe <Cynthia Carrasco MD - Last Filed: 03/27/25 08:55>
[2025-03-27] MEDS: FLUTICASONE/SALMETEROL 115-21 MCG INHALER 1 PUFF 2 PUFF INHALATION (07:14)
[2025-03-27 08:02] LABS: Hematocrit 40.6 % (42.0-52.0); Hemoglobin 13.0 g/dL (14.0-18.0); Immature Granulocyte Percent A 0.5 % (0-0.5); Lymphocytes Absolute Auto 0.79 K/mm3 (0.9-3.2); Mean Corpuscular HGB Conc 32.0 g/dl (32-36); Mean Corpuscular Hemoglobin 29.8 pg (26-34); Mean Corpuscular Volume 93.1 fl (80-100); Nucleated Red Blood Cells Absolute Auto 0.000 K/mm3 (0.0-0.012); Nucleated Red Blood Cells Perc 0.0 % (0.0-0.2); Platelet Count Result 211 k/mm3 (150-375); Red Blood Count 4.36 M/mm3 (4.6-6.20); White Blood Count 15.3 K/mm3 (4.5-10.0)
--- NOTE | 2025-03-27 08:14 | P.CONPL_ITS ---
Assessment and Plan Assessment and plan (1) COPD with acute exacerbation: Code(s): J44.1 - Chronic obstructive pulmonary disease with (acute) exacerbation Status: Acute Assessment and Plan: GOLD grade 3 group E COPD Patient with 25 pack year tobacco use, currently smoking half a pack a day. PFTs from 01/31/2019 with severe obstructive ventilatory abnormality, FEV1 46% predicted, mild hyperinflation, severe air trapping, moderately decreased DLCO at 55%. CT scan of the chest from 12/11/2018 with moderate centrilobular emphysema. CT scan of the chest on 12/03/2023 with severe apical greater than basilar centrilobular emphysema. Home O2 Eval 12/03/23 - requires 1L rest+activity. At baseline patient tells me he uses 2 L nasal cannula 24-7. echocardiogram on 03/26/2025 with LVEF 65-70, abnormal diastolic function, mildly enlarged left atrium, mild aortic regurg, mitral valve posterior prolapse, moderate to severe mitral valve regurgitation, mild tricuspid regurg with PASP 47. Normal right ventricular size and function. Normal right atrial size. Of note patient's RVSP was 45 on 01/18/2019. On a good day he can walk 50 ft. His home saturations on 2 L are 94% or above. patient tells me he wheezes daily. Patient presents with the 12 day history of worsening cough, rhinorrhea, congestion with no change in his phlegm color volume and worsening shortness of breath. 03/27/25: This morning the patient tells me he is 50% better. His appetite has returned. His cough is at his baseline with minimal phlegm and no hemoptysis. When I enter the room he was on 3 L nasal cannula saturations 97%. I decreased him to 2 L and his saturations were 94%. His cough is the same with a little bit of phlegm. He denies hemoptysis. He is afebrile. White blood cell count 15.3, creatinine 1.22, procalcitonin 0.1, CRP less than 0.5. Patient tells me he has difficulty expectorating his phlegm. Plan: I agree with treating for COPD exacerbation. Patient still has wheezing on exam this morning. I will decrease his Solu-Medrol from 40 Q 8 to 20 q.6. Steroids started on 03/26/2025. patient had an SVT this morning and 170-180 and agree with ipratropium nebulizers q.4 hours and discontinuing albuterol and changing to levalbuterol 1.25 q.8 hours. Patient is being treated for possible pneumonia with ceftriaxone and azithromycin both started on 03/26/2025. Patient is having difficulty expectorating and I will add guaifenesin 1200 mg p.o. b.i.d. and a Cornet flutter valve. I will send an alpha 1 anti trypsin level and genotype. Looking for infectious etiologies I will send a respiratory pathogen panel, urine for Legionella, urine for pneumococcal and a serum mycoplasma IgM. Discussed with Dr. Carrasco, will follow with you (2) Respiratory failure with hypoxia and hypercapnia: Code(s): J96.91 - Respiratory failure, unspecified with hypoxia; J96.92 - Respiratory failure, unspecified with hypercapnia Status: Acute Assessment and Plan: Patient has chronic hypoxic respiratory failure prescribed 1 L at rest and activity in 2023 but currently is been using 2 L nasal cannula 24-7. Patient had an ABG on presentation with the pH of 7.40/54/108 on 3 L nasal cannula. Admission serum bicarb was 34. Prior blood gas on 08/22/2021 was 7.56/32/46 on room air. 03/27/2025: Currently the patient is in no respiratory distress. Plan: goal saturation 90-94%, wean oxygen accordingly. I discussed patient's hypercarbic respiratory failure and that he may qualify for a BiPAP at night if his baseline PaCO2 is greater than 52. I described the BiPAP at night and at this time the patient wishes to continue to be treated for his COPD exacerbation and possible pneumonia and reassess his hypercarbic respiratory failure as an outpatient. (3) Tobacco abuse: Code(s): Z72.0 - Tobacco use Status: Acute Assessment and Plan: The patient continues to smoke half a pack a day. Plan: I told the patient that continued tobacco use was making his COPD worse and he disagreed with me. I told him the cigarettes were actively killing him and he told me the COPD was killing him. I told him the cigarettes for making a COPD worsened he disagreed with me. He has no interest in quitting at this time. History of Present Illness History of Present Illness Consult date: 03/27/25 Chief complaint: CAP, COPD Exacerbation Narrative: 03/27/2025: This is a new pulmonary consult for COPD her with acute on chronic respiratory failure. 79-year-old with a history of hypertension, GERD, GOLD grade 3 group B COPD Patient follows in the [facility] in last seen on 01/30/2025. Here are highlights from that note: COPD 1 year follow-up regarding COPD. He reports overall feeling the same since last visit w/o ER visits. He is needing prescriptions for his respiratory meds. He is currently taking Trelegy 100 and albuterol PRN. Doing well with Trelegy daily. Denies chest pains/tightness, fever, or hemoptysis. Has chronic cough with sputum production, able to expectorate well. He is needing a new nebulizer; will send script. they wouldn't take the October script as he needed an office visit. He has O2 setup in the home that he uses at night and PRN during the day. Currently smoking 0.5ppd; he has no intentions to quit. plan: Continue Trelegy and albuterol p.r.n.. Needed a new nebulizer. Prescribed no oxygen at rest, 1 L with activity and 1 L with sleep. Smoking cessation counseling was provided. He declined LDCT screening. He states if he had lung cancer he would not want to treated. He declined tobacco cessation education. Follow-up 1 year. at baseline patient tells me he uses 2 L nasal cannula 24-7. He continues to smoke half a pack a day For 50 years, total pack-years 25. Says that he has no interest in quitting. On a good day he can walk 50 ft. His home saturations on 2 L are 94% or above. patient tells me he wheezes daily. 03/27/25: Patient has 12 day history of rhinorrhea, worsening cough, with no change in his phlegm color or volume. The patient tells me he wheezes every day and that this is normal for him. He denies fever, chills, rigors. Symptoms progressed and patient presented to the emergency department on 03/26/2025. Blood pressure was 192/92, heart rate 104, respirations 26, saturations on 3 L nasal cannula 91%. Patient has decreased breath sounds but no wheezing. White blood cell count 9.0, eosinophils 13.4%=1206/uL, troponin negative, BNP 572, D-dimer positive at 0.77, ABG on 3 L nasal cannula 7.40/54/108. CT angiogram abdomen and pelvis showed no dissection, centrilobular emphysema in the lower lungs, atelectasis scarring in the right lower lobe and lingula. Patient was treated with Solu-Medrol, DuoNebs, ceftriaxone and azithromycin. This morning the patient tells me he is 50% better. His appetite has returned. His cough is at his baseline with minimal phlegm and no hemoptysis. When I enter the room he was on 3 L nasal cannula saturations 97%. I decreased him to 2 L and his saturations were 94%. His cough is the same with a little bit of phlegm. He denies hemoptysis. He is afebrile. White blood cell count 15.3, creatinine 1.22, procalcitonin 0.1, CRP less than 0.5. Patient tells me he has difficulty expectorating his phlegm. Later in the day patient developed an SVT 170-180 and his albuterol was changed to levalbuterol. DATA: 03/26/2025: Echo Summary 1. Complete two-dimensional, color flow and Doppler transthoracic echocardiogram is performed. 2. Left ventricular chamber dimension is normal. 3. Left ventricular systolic function is normal, estimated at 65-70. 4. There is mildly increased left ventricular wall thickness. 5. The left ventricular diastolic function is abnormal. 6. Left atrial chamber dimension is mildly enlarged. 7. There is moderate aortic valve sclerosis. 8. There is mild aortic valve regurgitation. 9. 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 10. There is moderate to severe mitral valve regurgitation. 11. The mitral valve annulus is moderately calcified. 12. There is mild tricuspid valve regurgitation. 13. Moderate pulmonary hypertension, estimated pulmonary arterial systolic pressure is 47 mmHg. 14. There is moderate pulmonic regurgitation. 15. The aortic root size at the sinus of Valsalva is mildly dilated. 16. There is moderate aortic atherosclerosis. Right Ventricle Right ventricular chamber dimension is normal. Right ventricular systolic function is normal. Right Atria Right atrial chamber dimension is normal. Atrial Septum Intact interatrial septum visualized by color flow imaging. 03/26/25: EXAMINATION: CTA abdomen pelvis INDICATION: Abdominal pain. Possible dissection. TECHNIQUE: Computed tomographic angiography (CTA) of the abdomen and pelvis was performed with 100 mL Omnipaque-350 intravenous contrast. Additional 3D reconstructions utilizing rotating maximum intensity projection (MIP) were performed. Automated exposure control and iterative reconstruction technique were employed. The dose-length product was 224.64 mGy-cm. COMPARISON: 03/26/2025 at 2:13 AM FINDINGS: Severe emphysema in the visualized lower lungs. Linear band of atelectasis/scarring with associated volume loss in the right lower lobe. Additional discoid atelectasis in the lingula along the major fissure. Small calcified nodule right lower lung along with calcified right hilar lymph nodes consistent with old granulomatous disease. Heart size is normal. Atherosclerotic coronary artery calcification. No pericardial or pleural effusion. Decrease in size of a likely benign chronic 3.9 cm cystic lesion at the dome of the liver which has decreased in size from 5.[address] dated 05/18/13. Gallbladder, spleen, pancreas and bilateral adrenal glands are normal. There are multiple bilateral renal cysts the largest on the left measuring up to 3.9 cm. Couple small regions of cortical scarring at the left kidney. No bowel obstruction. Excreted contrast in the bladder. Large right hydrocele in the scrotum. No free intraperitoneal gas or fluid. No pathologically enlarged abdominal or pelvic lymphadenopathy. Abdominal aorta is normal in caliber but with a couple small penetrating atherosclerotic ulcers position along the right anterior and left posterior aspect of the infrarenal abdominal aorta. 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 Additional small penetrating atherosclerotic ulcers along the bilateral common iliac and internal iliac arteries. Extensive atherosclerotic plaque along the aorta and many of the other arteries in the abdomen, pelvis and proximal thighs. There are moderate stenoses at the right external iliac and proximal right superficial femoral arteries. Moderate lumbar and lower thoracic spondylosis. IMPRESSION: 1. Extensive atherosclerotic disease with a couple small penetrating atherosclerotic ulcers along the infrarenal abdominal aorta as well as along the bilateral common and internal iliac arteries. 2. Moderate stenosis at the right external iliac and proximal left femoral arteries. 3. Large right hydrocele. Chest CTA 12/03/23 - EXAMINATION: CTA chest PE protocol DATE: 12/03/2023 11:33 INDICATION: Shortness of breath TECHNIQUE: Computed tomography angiography (CTA) of the chest was performed with 100 mL Omnipaque-350 intravenous contrast timed to evaluate the pulmonary arteries. Coronal maximum intensity projection 3D-reconstructions were created by the technologist. Automated exposure control and iterative reconstruction technique were employed. Exam dose: 202.69 mGy-cm total exam DLP. COMPARISON: 12/03/2023 portable AP chest 12/11/2018 CTA chest FINDINGS: There is diagnostic contrast enhancement of pulmonary arteries and no evidence of pulmonary embolism. There is extensive atherosclerotic calcification of the thoracic and abdominal aorta as well as great vessels and coronary arteries, celiac, superior mesenteric and renal arteries. No thoracic or abdominal aortic aneurysm or dissection. Normal heart size. No pericardial or pleural effusion. Prominent emphysematous changes of the lungs Minimal dependent atelectasis in the left upper lobe 8.7 mm nodular density at the posterolateral left costophrenic gutter, left lower lobe. 6 month follow-up CT chest is recommended. Right the lobe and adjacent anterior segment right lower lobe. There is infiltrate, atelectasis and/or scarring in the right lower lobe. Stable prominent posterior hepatic dome cyst 12/11/2018. Included skeletal structures are unremarkable. IMPRESSION: No evidence of pulmonary embolism Prominent emphysematous changes Recommend 6 month follow-up CT with attention to approximately 8.7 mm nodular density at posterolateral left costophrenic gutter, left lower lobe Occasional areas of infiltrate or atelectasis in the dependent left upper lobe, middle lobe and right lower lobe Home O2 Eval 12/03/23 - requires 1L rest+activity PFT 01/31/2019 - PFT report: FEV1 Severely decreased at 46%, FVC 71%. There is airflow obstruction. Severe decrease in FEF 12/10/2074. No change with bronchodilator. Lung volumes: Mild hyperinflation, severe air trapping, increased airway resistance. Diffusion: Moderate decrease 55% DLCO. Impression: Severe obstructive ventilatory impairment, mild hyperinflation, severe air trapping, mild increase in airways resistance, moderate diffusion impairment. Vital capacity is much higher than the forced vital capacity consistent with dynamic airway collapse. 05/18/2013: CT ABDOMEN/PELVIS W/O KUB INDICATION: Left flank pain. History of kidney stones. COMPARISON: CT renal scan is not available from archive. FINDINGS: Normal heart size. Prominent coronary artery calcifications. No pericardial or pleural effusion. There is some patchy infiltrate and/or atelectasis at the lung bases and involving middle lobe, lingula as well as both lower lobes, most prominent in the right lower lobe. Review of Systems 2 Constitutional: Constitutional: Reports no additional constitutional complaints Eyes: Eyes: Reports no additional eye complaints ENT: Reports system reviewed and no additional complaints, except as documented Cardiovascular: Cardiovascular: Reports no additional cardiovascular complaints Respiratory: Respiratory: Reports no additional respiratory complaints Gastrointestinal: Gastrointestinal: Reports no additional gastrointestinal complaints Musculoskeletal: Musculoskeletal: Reports no additional musculoskeletal complaints Neurologic: Reports system reviewed and no additional complaints, except as documented Psychiatric: Psychiatric: Reports no additional psychiatric complaints Endocrine: Endocrine: Reports no additional endocrine complaints Hematologic/Lymphatic: Hematologic/Lymphatic: Reports no additional hematologic/lymphatic complaints Allergic/Immunologic: Allergic/Immunologic: Reports no additional allergic/immunologic complaints [facility] Past Medical History Medical History Environmental allergies B12 deficiency History of COVID-19 (~08/2021) Essential (primary) hypertension GERD without esophagitis History of kidney stones Tobacco abuse Acute respiratory failure (~04/2020) COPD (chronic obstructive pulmonary disease) Surgical History Surgical History H/O cataract extraction (~2018) Family History Family History Mother Excessive bleeding Cancer Social History Social History Social History: He lives with and she is his durable power patent prosecution attorney for healthcare. He has 4 children. He is retired from being a medical instruction for medical students. He continues to smoke at least a pack a cigarettes a day and is not interested in smoking cessation. He does not use any alcohol marijuana or illicit drugs. Code status DNR Smoking packs per day: 0.5 Smoking cigarettes per day: 10.0 Years smoked: 50 Smoking pack-years: 25.00 Smoking status: Current every day smoker Second hand tobacco smoke exposure: Yes Alcohol intake: never Substance use: never Substance use type: does not use Do You Feel Safe in your Home?: Yes Lack of Transportation: No Lack of Food: Never True Current Housing: I Have Housing Concerned About Future Housing: No Difficulty Paying Gas/Electric Bills: No Difficulty Paying for Meds: No Currently Unemployed: No Education: Master's Degree or Higher Difficulty w/ Childcare or Family Care: YES Living arrangements: with family Additional living arrangements comments: Occupation/Education: retired Gender identity (if verbalized by the patient): Male Sexual Orientation (if Verbalized by the Patient): Straight or Heterosexual Spiritual care concerns: No Agree to blood products: Yes Meds Home Medications and Allergies Home Medications ?Medication ?Instructions ?Recorded ?Confirmed ?Type famotidine 20 mg tablet (Pepcid AC) 20 mg PO DAILY 03/26/25 History inhalational spacing device #10 ea 11/24/22 03/26/25 R x (Aerochamber Plus Flow-Vu) albuterol sulfate 1.25 mg/3 mL 1.25 mg (3 mL) inhalati on Q6H PRN 01/30/25 03/26/25 Rx solution for nebulization shortness of breath or wheez ing #360 mL nebulizer accessories #1 ea 01/30/25 03/26/25 Rx hydrochlorothiazide 25 mg tablet 25 mg PO DAILY #90 ta bs 02/10/25 03/26/25 Rx albuterol sulfate 90 mcg/actuation 1 - 2 puff inhalati on Q6H PRN 02/11/25 03/26/25 Rx aerosol inhaler shortness of breath or wheez ing #8.5 grams fluticasone fur. 100 mcg-umeclid See Rx Instructions . Route 02/12/25 03/26/25 Rx 62.5 mcg-vilant 25 mcg .COMPLEX #60 ea inhalat.powder (Trelegy Ellipta) aspirin 81 mg tablet,delayed 81 mg PO DAILY PRN joint pain 03/26/25 03/26/25 History release (Adult Aspirin Regimen) docusate sodium 100 mg capsule 100 mg PO DAILY PRN con stipation 03/26/25 03/26/25 History (Col-Rite) Allergies Allergy/AdvReac Type Severity Reaction Status Date / Time No Known Allergies Allergy Verified 03/26/25 10:58 Vital Signs Vital Signs - 24 hr 03/26/25 10:01 03/26/25 10:02 03/26/25 10:05 Temperature Pulse Rate 76 74 80 Respiratory Rate 20 20 18 Blood Pressure Pulse Oximetry 96 Oxygen Delivery Nasal Cannula Oxygen Flow Rate 2 Fraction of Inspired Oxygen 03/26/25 11:12 03/26/25 11:20 03/26/25 12:00 Temperature 36.5 C Pulse Rate 86 92 Respiratory Rate 18 Blood Pressure 137/66 Pulse Oximetry 97 97 Oxygen Delivery Nasal Cannula Oxygen Flow Rate 3 Fraction of Inspired Oxygen 03/26/25 13:59 03/26/25 14:03 03/26/25 16:00 Temperature 36.4 C Pulse Rate 75 80 75 Respiratory Rate 16 18 Blood Pressure 113/54 L Pulse Oximetry 98 Oxygen Delivery Oxygen Flow Rate Fraction of Inspired Oxygen 03/26/25 19:41 03/26/25 19:50 03/26/25 20:00 Temperature 36.7 C Pulse Rate 83 85 95 Respiratory Rate 20 20 18 Blood Pressure 122/54 L Pulse Oximetry 97 Oxygen Delivery Oxygen Flow Rate Fraction of Inspired Oxygen 03/26/25 20:00 03/26/25 20:00 03/27/25 00:00 Temperature Pulse Rate 95 95 89 Respiratory Rate 18 Blood Pressure Pulse Oximetry 97 Oxygen Delivery Nasal Cannula Oxygen Flow Rate 3 Fraction of Inspired Oxygen 30 03/27/25 00:00 03/27/25 02:08 03/27/25 02:14 Temperature 36.8 C Pulse Rate 82 80 82 Respiratory Rate 18 20 20 Blood Pressure 124/58 L Pulse Oximetry 96 Oxygen Delivery Oxygen Flow Rate Fraction of Inspired Oxygen 03/27/25 04:00 03/27/25 05:48 03/27/25 07:15 Temperature 36.6 C Pulse Rate 90 91 98 Respiratory Rate 18 18 Blood Pressure 115/59 L Pulse Oximetry 98 Oxygen Delivery Oxygen Flow Rate Fraction of Inspired Oxygen 03/27/25 07:16 03/27/25 07:19 Temperature Pulse Rate 92 Respiratory Rate 18 Blood Pressure Pulse Oximetry 99 Oxygen Delivery Nasal Cannula Oxygen Flow Rate 3.5 Fraction of Inspired Oxygen Exam 2 Const: General: cooperative, healthy appearing and comfortable O rientation/consciousness: oriented to person, oriented to place and oriented to time HENMT: Head: normal to inspection Ears: hearing grossly normal bilaterally Eyes: General: appearance normal, both eyes and all related structures Neck: Neck: normal visual inspection Chest: Chest palpation & inspection: normal inspection of the chest Resp: Effort & Inspection: normal respiratory effort and able to speak in complete sentences Auscultation: no crackles, no rales, no rhonchi, wheezes and diminished lung sounds Cardio: Jugular venous distension: no JVD GI: Inspection: normal to inspection GI Palp: No abdominal tenderness Skin: General skin exam: normal color Neuro: General: oriented to person, oriented to place and oriented to time Extrem: General: normal to inspection and no edema Psych: Appearance: grossly normal Results Laboratory Findings 03/27/25 07:54 03/27/25 07:54 ABG, PT/INR, D-dimer: ABG ABG pH 7.392 (7.350-7.450) 03/26/25 01:04 ABG pCO2 54.4 mmHg (35.0-45.0) H 03/26/25 01:04 ABG pO2 107.7 mmHg (80.0-100.0) H 03/26/25 01:04 ABG O2 Saturation 97.8 % (95.0-100.0) 03/26/25 01:04 PT/INR, D-dimer PT 13.3 Seconds (11.1-14.7) 03/26/25 00:59 INR 1.0 03/26/25 00:59 D-Dimer 0.77 ug/mL (<0.48) H 03/26/25 00:59 D-Dimer Cancelled 03/26/25 00:59 Abnormal lab findings: Abnormal Labs 03/26/25 03/26/25 03/26/25 00:41 00:59 01:04 WBC RBC Hgb Hct Neut % (Auto) Lymph % (Auto) 13.1 L Eos % (Auto) 13.4 H Baso % (Auto) Lymph # (Auto) Franklin # (Auto) 0.7 H Eos # (Auto) 1.2 H Abs Immat Gran (auto) Absolute Neuts (auto) D-Dimer 0.77 H ABG pCO2 54.4 H ABG pO2 107.7 H ABG HCO3 32.3 H Sodium 136 L Chloride 96 L Carbon Dioxide 34 H BUN 24 H Glucose 112 H NT-Pro-B Natriuret Pep 572 H 03/27/25 07:54 WBC 15.3 H RBC 4.36 L Hgb 13.0 L Hct 40.6 L Neut % (Auto) 89.9 H Lymph % (Auto) 5.2 L Eos % (Auto) Baso % (Auto) 0.1 L Lymph # (Auto) 0.79 L Franklin # (Auto) 0.7 H Eos # (Auto) Abs Immat Gran (auto) 0.08 H Absolute Neuts (auto) 13.7 H D-Dimer ABG pCO2 ABG pO2 ABG HCO3 Sodium Chloride Carbon Dioxide BUN Glucose NT-Pro-B Natriuret Pep Diagnostic Findings Additional studies: ITS Impressions Chest X-Ray 03/26/25 08:26 IMPRESSION: 1. Unchanged bandlike discoid atelectasis/scarring in the right lower lobe and along the left major fissure with additional pleural parenchymal scarring at the bilateral costophrenic angles. 2. Emphysema. Abdomen/Pelvis CT 03/26/25 08:52 IMPRESSION: 1. Findings suggestive of gastritis. 2. Right lower lobe consolidation. Abdomen/Pelvis CTA 03/26/25 09:09 IMPRESSION: 1. Extensive atherosclerotic disease with a couple small penetrating atherosclerotic ulcers along the infrarenal abdominal aorta as well as along the bilateral common and internal iliac arteries. 2. Moderate stenosis at the right external iliac and proximal left femoral arteries. 3. Large right hydrocele. Chest X-Ray 03/27/25 12:19 IMPRESSION: Diffuse interstitial thickening in the left lung. Bilateral pulmonary vascular congestion. Bilateral perihilar bronchial wall thickening. Findings can represent CHF versus pneumonia in appropriate clinical settings.. Findings can represent pneumonia in appropriate clinical settings. Clinical correlation is recommended. Short-term follow-up chest radiograph is recommended after appropriate clinical therapy to document stability and/or resolution.
[2025-03-27 08:28] LABS: Anion Gap 8 mmol/L (4-12); Blood Urea Nitrogen 48 mg/dL (9-20); Calcium 9.9 mg/dL (8.4-10.2); Carbon Dioxide 34 mmol/L (22-30); Chloride 94 mmol/L (98-107); Cholesterol 167 mg/dL (0-200); Estimated CRCL calculation 33 ml/min; Estimated Glomerular Filt Rate 58; Glucose 124 mg/dL (65-110); HDL Direct 60 mg/dL; Potassium 3.6 mmol/L (3.4-5.0); Sodium 136 mmol/L (137-145); Triglycerides 49 mg/dL (<150)
[2025-03-27 08:53] LABS: CRP < 0.5 mg/dL (<1.0)
[2025-03-27] MEDS: cefTRIAXone 1 GM in SODIUM CHLORIDE 0.9% IV 50 ML 100 ML IVPB (09:12)
[2025-03-27] MEDS: PANTOPRAZOLE 40 MG TABLET PO ×2 (09:13→20:51)
[2025-03-27 10:00] LABS: Procalcitonin 0.1 ng/mL
[2025-03-27] MEDS: AZITHROMYCIN 250 MG/NS 250 ML 250 MG/250 ML BAG IVPB (10:21)
[2025-03-27] MEDS: guaiFENesin 12 HR 600 MG TABCR 1200 MG PO (11:02)
--- NOTE | 2025-03-27 11:56 | ECG_ITS ---
Test Date: 2025-03-27 12:04:08 Measurements Intervals [place]er Rate: 177 P: 0 MO: 0 QRS: 3 QRSD: 76 T: 91 QT: 180 QTc: 309 Interpretive Statements SUPRAVENTRICULAR TACHYCARDIA SEPTAL MYOCARDIAL INFARCTION , PROBABLY OLD [40+ ms Q WAVE IN V1/V2] MARKED ST DEPRESSION, CONSIDER SUBENDOCARDIAL INJURY [0.2+ mV ST DEPRESSION] Compared to ECG 03/26/2025 00:29:58 ST (T wave) deviation now present Myocardial infarct finding still present Electronically Signed On 03-27-2025 12:28:57 CDT by Edward Reilly M.D.
[2025-03-27] MEDS: METOPROLOL TARTRATE INJ 5 MG/5 ML VIAL IV PUSH (12:07)
[2025-03-27] MEDS: SODIUM CHLORIDE 0.9% IV 500 ML IV CONT (12:12)
--- NOTE | 2025-03-27 12:26 | P.PNIM_ITS ---
Progress Note: A&P Assessment and Plan (1) Essential (primary) hypertension: Code(s): I10 - Essential (primary) hypertension Status: Chronic (2) GERD without esophagitis: Code(s): K21.9 - Gastro-esophageal reflux disease without esophagitis Status: Acute (3) Gastritis: Qualifiers: Chronicity: unspecified Gastritis bleeding: without bleeding Gastritis type: unspecified gastritis Qualified Code(s): K29.70 - Gastritis, unspecified, without bleeding Code(s): K29.70 - Gastritis, unspecified, without bleeding Status: Acute (4) COPD (chronic obstructive pulmonary disease): Qualifiers: COPD type: unspecified COPD Qualified Code(s): J44.9 - Chronic obstructive pulmonary disease, unspecified Code(s): J44.9 - Chronic obstructive pulmonary disease, unspecified Status: Acute (5) Acute and chronic respiratory failure with hypoxia: Code(s): J96.21 - Acute and chronic respiratory failure with hypoxia Status: Acute (6) CAP (community acquired pneumonia): Qualifiers: Laterality: right Lung location: lower lobe of lung Qualified Code(s): J18.9 - Pneumonia, unspecified organism Code(s): J18.9 - Pneumonia, unspecified organism Status: Acute (7) Tobacco abuse: Code(s): Z72.0 - Tobacco use Status: Acute Plan 79-year-old male with history of COPD, chronic hypoxic respiratory failure on 2 L nasal cannula baseline, hypertension, GERD presents to the emergency department for difficulty breathing for the past [address] abdomen pelvis/chest suggestive of right lower lobe consolidation, gastritis. Tested negative for influenza a, COVID, RSV, urine strep, Legionella antigen 1. Acute on chronic respiratory failure: Admit to telemetry medicine Continue with O2 support Now on Levalbuterol and Ipratropium bromide, Albuterol stopped due to SVT ON IV steroid Obtain blood culture Continue on azithromycin, ceftriaxone ECHO showed abnormal diastolic function adn PASP 47mmHg Tobacco cessation counseling Discussed with Dr Grande, from pulmonology 2. Atherosclerotic disease: Denies abdominal pain Ulcerated atherosclerotic disease on CT abdomen Will benefit from vascular surgery referral as an outpatient LDL 71 Will consult with vascular surgery prior to discharge 3. Gastritis: Will start on PPI 4. Code status: Do not resuscitate 5. Pre diabetes: Monitor for hyperglycemia in setting of steroid use SVT ECHO and EKG reviewed S/p metoprolol and cardizem infusion started cardiology consulted Maintain K >4 and Mag >2 Monitor in IMU 6. DVT prophylaxis: Heparin subcu Subjective Date/time seen: 03/27/25 12:26 Interval history: Comfortable at bedside see rapid response note Review of Systems Review of Systems: All systems reviewed & are unremarkable except as noted in HPI and below Exam Narrative: GENERAL: Well-appearing, well-nourished, and in no acute distress. On nasal can nula HEAD: Normocephalic, atraumatic. EYES: EOMI. ENT: Nares clear, no rhinorrhea or epistaxis. Mucous membranes moist. NECK: Supple. CHEST: Decreased lung sounds throughout all lung gaytan.Actively coughing on exam HEART: Regular rate and rhythm. No murmur heard. Normal peripheral pulses. ABDOMEN: Soft umbilical hernia that is easily reduced and nontender. Tenderness to the right lower quadrant with no rebound or rigidity. No CVA tenderness. Normoactive bowel sounds. EXTREMITIES: Normal range of motion. No edema. Negative Homans bilaterally SKIN: Warm, dry, no rash. NEURO: No focal deficits. Alert and oriented x3 Objective Data Vital Signs Vital Signs: Vital Signs - 24 hr 03/26/25 13:59 03/26/25 14:03 03/26/25 16:00 Temperature 97.6 F Pulse Rate 75 80 75 Respiratory Rate 16 18 Blood Pressure 113/54 L Pulse Oximetry 98 Oxygen Delivery Oxygen Flow Rate Fraction of Inspired Oxygen 03/26/25 19:41 03/26/25 19:50 03/26/25 20:00 Temperature 98.1 F Pulse Rate 83 85 95 Respiratory Rate 20 20 18 Blood Pressure 122/54 L Pulse Oximetry 97 Oxygen Delivery Oxygen Flow Rate Fraction of Inspired Oxygen 03/26/25 20:00 03/26/25 20:00 03/27/25 00:00 Temperature Pulse Rate 95 95 89 Respiratory Rate 18 Blood Pressure Pulse Oximetry 97 Oxygen Delivery Nasal Cannula Oxygen Flow Rate 3 Fraction of Inspired Oxygen 30 03/27/25 00:00 03/27/25 02:08 03/27/25 02:14 Temperature 98.3 F Pulse Rate 82 80 82 Respiratory Rate 18 20 20 Blood Pressure 124/58 L Pulse Oximetry 96 Oxygen Delivery Oxygen Flow Rate Fraction of Inspired Oxygen 03/27/25 04:00 03/27/25 05:48 03/27/25 07:15 Temperature 98 F Pulse Rate 90 91 98 Respiratory Rate 18 18 Blood Pressure 115/59 L Pulse Oximetry 98 Oxygen Delivery Oxygen Flow Rate Fraction of Inspired Oxygen 03/27/25 07:16 03/27/25 07:19 03/27/25 08:00 Temperature Pulse Rate 92 108 H Respiratory Rate 18 Blood Pressure Pulse Oximetry 99 Oxygen Delivery Nasal Cannula Oxygen Flow Rate 3.5 Fraction of Inspired Oxygen 03/27/25 08:00 03/27/25 12:07 Temperature Pulse Rate 176 H Respiratory Rate Blood Pressure Pulse Oximetry 99 Oxygen Delivery Nasal Cannula Oxygen Flow Rate 3 Fraction of Inspired Oxygen Intake/Output Intake/Output: Intake & Output 03/24/25 03/25/25 03/26/25 03/27/25 23:59 23:59 23:59 23:59 Intake Total 1140 477 Output Total 300 Balance 840 477 Meds/Results Medications: Active Medications Generic Name Dose Route Start Last Admin Trade Name Freq PRN Reason Stop Dose Admin Acetaminophen 325 mg 03/26/25 09:21 Acetaminophen 325 Mg Tablet PO Q6H PRN Mild Pain (1-3) or Fever Aspirin 81 mg 03/26/25 15:37 Aspirin 81 Mg Enteric Tablet PO DAILY PRN joint pain Docusate Sodium 100 mg 03/26/25 15:37 Docusate Sodium 100 Mg Capsule PO DAILY PRN Constipation Guaifenesin 1,200 mg 03/27/25 10:55 03/27/25 11:02 Guaifenesin 12 Hr 600 Mg Tabcr PO 1,200 mg Q12HR KORIN Administration Heparin Sodium (Porcine) 5,000 units 03/26/25 21:00 03/27/25 09:11 Heparin Sodium 5,000 Units/Ml Vial SUB-Q 5,000 units Q12HR KORIN Administration Ceftriaxone Sodium 1 gm/ 50 mls @ 100 mls/hr 03/26/25 09:00 03/27/25 09:12 Sodium Chloride IVPB 03/30/25 09:29 100 mls/hr Q24H KORIN Administration Azithromycin 250 mg in 250 mls @ 250 mls/hr 03/26/25 10:00 03/27/25 10:21 Zithromax IVPB 03/28/25 10:59 250 mls/hr Q24H KORIN Administration Sodium Chloride 500 mls @ 500 mls/hr 03/27/25 11:56 03/27/25 12:12 Normal Saline Iv IV CONT 03/27/25 12:55 500 mls/hr .Q1H ONE Administration Potassium Chloride 40 meq/ 520 mls @ 130 mls/hr 03/27/25 13:00 Sodium Chloride IVPB 03/27/25 16:59 ONCE ONE Diltiazem HCl 100 mg in 100 mls @ 5 mls/hr 03/27/25 12:25 Cardizem 100 Mg/100 Ml IV CONT .Q20H KORIN 5 MG/HR Ipratropium [place] 0.5 mg 03/27/25 16:00 Ipratropium Br 0.02% Inh Soln 0.5 Mg/2.5 Ml Vial INHALATION Q4HRT KORIN Levalbuterol HCl 1.25 mg 03/27/25 16:00 Levalbuterol Neb 1.25 Mg/3 Ml INHALATION Q8HRT KORIN Methylprednisolone Sodium Succinate 40 mg 03/26/25 09:25 03/27/25 06:20 Methylprednisolone Sod Succ 40 Mg Vial IV PUSH 40 mg Q8HR KORIN Administration Pantoprazole Sodium 40 mg 03/26/25 09:00 03/27/25 09:13 Pantoprazole 40 Mg Tablet PO 40 mg Q12HR KORIN Administration Perflutren Lipid Microsphere 0 ml 03/26/25 09:23 Perflutren Lipid Microspheres 1.5 Ml Vial Diluted To 10 Ml Total Volume IV PUSH 03/29/25 09:23 ONCE PRN adequate visualization Protocol Radiology Results: ITS Impressions Abdomen/Pelvis CT 03/26/25 08:52 IMPRESSION: 1. Findings suggestive of gastritis. 2. Right lower lobe consolidation. Abdomen/Pelvis CTA 03/26/25 09:09 IMPRESSION: 1. Extensive atherosclerotic disease with a couple small penetrating atherosclerotic ulcers along the infrarenal abdominal aorta as well as along the bilateral common and internal iliac arteries. 2. Moderate stenosis at the right external iliac and proximal left femoral arteries. 3. Large right hydrocele. Chest X-Ray 03/27/25 12:19 IMPRESSION: Diffuse interstitial thickening in the left lung. Bilateral pulmonary vascular congestion. Bilateral perihilar bronchial wall thickening. Findings can represent CHF versus pneumonia in appropriate clinical settings.. Findings can represent pneumonia in appropriate clinical settings. Clinical correlation is recommended. Short-term follow-up chest radiograph is recommended after appropriate clinical therapy to document stability and/or resolution. Labs Labs: Laboratory Results - last 24 hr 03/27/25 03/27/25 07:54 12:00 WBC 15.3 H RBC 4.36 L Hgb 13.0 L Hct 40.6 L MCV 93.1 MCH 29.8 MCHC 32.0 RDW 13.6 Plt Count 211 MPV 10.0 Immature Gran % (Auto) 0.5 Neut % (Auto) 89.9 H Lymph % (Auto) 5.2 L [place] % (Auto) 4.3 Eos % (Auto) 0.0 Baso % (Auto) 0.1 L Lymph # (Auto) 0.79 L [place] # (Auto) 0.7 H Eos # (Auto) 0.0 Baso # (Auto) 0.0 Abs Immat Gran (auto) 0.08 H Absolute Neuts (auto) 13.7 H Absolute Nucleated RBC 0.000 Nucleated RBC % 0.0 Sodium 136 L Potassium 3.6 Chloride 94 L Carbon Dioxide 34 H Anion Gap 8 BUN 48 H D Creatinine 1.22 Estim Creat Clear Calc 33 Estimated GFR 58 L Glucose 124 H POC Capillary Glucose 141 H Calcium 9.9 C-Reactive Protein < 0.5 Triglycerides 49 Cholesterol 167 LDL Cholesterol Direct 71 HDL Direct 60 Procalcitonin 0.1 Quality VTE Prophylaxis VTE prophylaxis: pharmacologic ordered
[2025-03-27] MEDS: POTASSIUM CHLORIDE INJ 40 MEQ in SODIUM CHLORIDE 0.9% IV 500 ML 130 MEQ IVPB (12:28)
--- NOTE | 2025-03-27 12:29 | PM.EVENT ---
Event Note Event Note Event Note: Rapid response was called on patient for tachycardia with HR in 170s- 180s. At bedside patient was comfortable and denies any chest discomfort ECHO from yesterdays showed abnormal diastolic dysfunction with elevated PASP of 47 mmHg Patient alert adn comfortable RS: clear to auscultation CVS: regular fast and no murmurs GI: non distended, non tender and BS present Neuro: alert and oriented x3 non focal EKG at bedside shoed SVT CXR unremarkable K 3.6 Assessment SVT EKG reviewed, Replaced Potassium, obtain Mag level Metoprolol 5mg IVF Start Cardizem infusion, changed Duoneb to Levalbuterol and Ipratropium bromide Cardiology consulted F/u on Mag level Monitor in IMU
[2025-03-27] MEDS: POTASSIUM CHLORIDE 20 MEQ PACKET (FOR LIQUID) 40 MEQ PO (12:33)
--- NOTE | 2025-03-27 12:50 | PC.NURSE ---
This patient, Murali Koenig, was received from ROBIN Vásquez on 03/27/25 at 1250. Patient/family oriented to unit policies and routines.
[2025-03-27 12:55] LABS: Magnesium 2.1 mg/dL (1.6-2.3)
[2025-03-27 13:02] LABS: Troponin I < 0.012 ng/mL (0.000-0.034)
[2025-03-27] MEDS: MIDAZOLAM HCL (*CRX) 2 MG/2 ML VIAL 1 MG IV PUSH (13:06)
[2025-03-27] MEDS: ADENOSINE IV SOLN 6 MG/2 ML VIAL IV PUSH (13:07)
--- NOTE | 2025-03-27 13:08 | ECG_ITS ---
Test Date: 2025-03-27 14:40:47 Measurements Intervals Vest Rate: 82 P: 86 RI: 137 QRS: -11 QRSD: 81 T: 61 QT: 368 QTc: 432 Interpretive Statements SINUS RHYTHM TALL T-WAVES, SUGGESTS HYPERKALEMIA Compared to ECG 03/27/2025 12:04:08 Supraventricular tachycardia no longer present Myocardial infarct finding no longer present ST (T wave) deviation no longer present Electronically Signed On 03-28-2025 12:11:43 CDT by Edward Reilly M.D.
--- NOTE | 2025-03-27 13:11 | P.CONCA_ITS ---
Assessment and Plan Assessment and plan (1) SVT (supraventricular tachycardia): Code(s): I47.10 - Supraventricular tachycardia, unspecified Status: Acute Plan 79 yo man with COPD, HTN, and active tobacco abuse presented with shortness of breath admitted for COPD exacerbation suddenly developed SVT SVT -terminated with adenosine -likely driven by underlying severe pulmonary disease -if he has recurrence, would place on maintenance oral diltiazem; otherwise plan for now is outpatient follow up Mitral Valve Prolapse -outpatient follow up to monitor his degree of mitral regurgitation HTN -well controlled now -on HCTZ outpatient History of Present Illness History of Present Illness Consult date/time: 03/27/25 13:11 Requesting physician: Bre Knox MD Consult reason: Other Reason For Visit: CAP, COPD Exacerbation Narrative: 79 yo man with COPD, HTN, and active tobacco abuse presented with shortness of breath admitted for COPD exacerbation suddenly developed SVT this afternoon for which cardiology has been consulted. He denies any chest discomfort at rest. No significant shortness of breath at rest. He was able to ambulate today without any shortness of breath this morning. Denied dizziness/lightheadedness and syncope. He has had elevated heart rates in the past. Review of Systems 2 Cardiovascular: Cardiovascular: Reports as per HPI Respiratory: Respiratory: Reports as per HPI [facility] Past Medical History Medical History Environmental allergies B12 deficiency History of COVID-19 (~08/2021) Essential (primary) hypertension GERD without esophagitis History of kidney stones Tobacco abuse Acute respiratory failure (~04/2020) COPD (chronic obstructive pulmonary disease) Surgical History Surgical History H/O cataract extraction (~2018) Family History Family History Mother Excessive bleeding Cancer Social History Social History Social History: He lives with and she is his durable power collections attorney for healthcare. He has 4 children. He is retired from being a medical instruction for medical students. He continues to smoke at least a pack a cigarettes a day and is not interested in smoking cessation. He does not use any alcohol marijuana or illicit drugs. Code status DNR Smoking packs per day: 0.5 Smoking cigarettes per day: 10.0 Years smoked: 50 Smoking pack-years: 25.00 Smoking status: Current every day smoker Second hand tobacco smoke exposure: Yes Alcohol intake: never Substance use: never Substance use type: does not use Do You Feel Safe in your Home?: Yes Lack of Transportation: No Lack of Food: Never True Current Housing: I Have Housing Concerned About Future Housing: No Difficulty Paying Gas/Electric Bills: No Difficulty Paying for Meds: No Currently Unemployed: No Education: Master's Degree or Higher Difficulty w/ Childcare or Family Care: YES Living arrangements: with family Additional living arrangements comments: Occupation/Education: retired Gender identity (if verbalized by the patient): Male Sexual Orientation (if Verbalized by the Patient): Straight or Heterosexual Spiritual care concerns: No Agree to blood products: Yes Meds Home Medications and Allergies Home Medications ?Medication ?Instructions ?Recorded ?Confirmed ?Type famotidine 20 mg tablet (Pepcid AC) 20 mg PO DAILY 03/26/25 History inhalational spacing device #10 ea 11/24/22 03/26/25 R x (Aerochamber Plus Flow-Vu) albuterol sulfate 1.25 mg/3 mL 1.25 mg (3 mL) inhalati on Q6H PRN 01/30/25 03/26/25 Rx solution for nebulization shortness of breath or wheez ing #360 mL nebulizer accessories #1 ea 01/30/25 03/26/25 Rx hydrochlorothiazide 25 mg tablet 25 mg PO DAILY #90 ta bs 02/10/25 03/26/25 Rx albuterol sulfate 90 mcg/actuation 1 - 2 puff inhalati on Q6H PRN 02/11/25 03/26/25 Rx aerosol inhaler shortness of breath or wheez ing #8.5 grams fluticasone fur. 100 mcg-umeclid See Rx Instructions . Route 02/12/25 03/26/25 Rx 62.5 mcg-vilant 25 mcg .COMPLEX #60 ea inhalat.powder (Trelegy Ellipta) aspirin 81 mg tablet,delayed 81 mg PO DAILY PRN joint pain 03/26/25 03/26/25 History release (Adult Aspirin Regimen) docusate sodium 100 mg capsule 100 mg PO DAILY PRN con stipation 03/26/25 03/26/25 History (Col-Rite) Allergies Allergy/AdvReac Type Severity Reaction Status Date / Time No Known Allergies Allergy Verified 03/26/25 10:58 Vital Signs Vital Signs - 24 hr 03/26/25 13:59 03/26/25 14:03 03/26/25 16:00 Temperature 36.4 C Pulse Rate 75 80 75 Respiratory Rate 16 18 Blood Pressure 113/54 L Pulse Oximetry 98 Oxygen Delivery Oxygen Flow Rate Fraction of Inspired Oxygen 03/26/25 19:41 03/26/25 19:50 03/26/25 20:00 Temperature 36.7 C Pulse Rate 83 85 95 Respiratory Rate 20 20 18 Blood Pressure 122/54 L Pulse Oximetry 97 Oxygen Delivery Oxygen Flow Rate Fraction of Inspired Oxygen 03/26/25 20:00 03/26/25 20:00 03/27/25 00:00 Temperature Pulse Rate 95 95 89 Respiratory Rate 18 Blood Pressure Pulse Oximetry 97 Oxygen Delivery Nasal Cannula Oxygen Flow Rate 3 Fraction of Inspired Oxygen 30 03/27/25 00:00 03/27/25 02:08 03/27/25 02:14 Temperature 36.8 C Pulse Rate 82 80 82 Respiratory Rate 18 20 20 Blood Pressure 124/58 L Pulse Oximetry 96 Oxygen Delivery Oxygen Flow Rate Fraction of Inspired Oxygen 03/27/25 04:00 03/27/25 05:48 03/27/25 07:15 Temperature 36.6 C Pulse Rate 90 91 98 Respiratory Rate 18 18 Blood Pressure 115/59 L Pulse Oximetry 98 Oxygen Delivery Oxygen Flow Rate Fraction of Inspired Oxygen 03/27/25 07:16 03/27/25 07:19 03/27/25 08:00 Temperature Pulse Rate 92 108 H Respiratory Rate 18 Blood Pressure Pulse Oximetry 99 Oxygen Delivery Nasal Cannula Oxygen Flow Rate 3.5 Fraction of Inspired Oxygen 03/27/25 08:00 03/27/25 12:07 Temperature Pulse Rate 176 H Respiratory Rate Blood Pressure Pulse Oximetry 99 Oxygen Delivery Nasal Cannula Oxygen Flow Rate 3 Fraction of Inspired Oxygen Exam 2 Const: General: comfortable HENMT: Mouth: Yes dry mucous membranes Eyes: EOM: EOMs intact bilaterally Neck: Neck: no JVD Resp: Effort & Inspection: normal respiratory effort Cardio: Rate: tachycardic Rhythm: regular rhythm Heart sounds: Murmur heart sound present Extrem: General: no pedal edema Results Labs and Meds 03/27/25 07:54 03/27/25 07:54 Lab results: Cardiac Enzymes 03/27/25 Range/Units 12:10 Troponin I < 0.012 (0.000-0.034) ng/mL Lipids 03/27/25 Range/Units 07:54 Triglycerides 49 (<150) mg/dL Cholesterol 167 (0-200) mg/dL CBC 03/27/25 Range/Units 07:54 WBC 15.3 H (4.5-10.0) K/mm3 RBC 4.36 L (4.6-6.20) M/mm3 Hgb 13.0 L (14.0-18.0) g/dL Hct 40.6 L (42.0-52.0) % Plt Count 211 (150-375) k/mm3 Lymph # (Auto) 0.79 L (0.9-3.2) K/mm3 [place] # (Auto) 0.7 H (0.1-0.6) K/mm3 Eos # (Auto) 0.0 (0-0.3) K/mm3 Baso # (Auto) 0.0 (0.0-0.1) K/mm3 Comprehensive Metabolic Panel 03/27/25 Range/Units 07:54 Sodium 136 L (137-145) mmol/L Potassium 3.6 (3.4-5.0) mmol/L Chloride 94 L (98-107) mmol/L Carbon Dioxide 34 H (22-30) mmol/L BUN 48 H D (9-20) mg/dL Creatinine 1.22 (0.7-1.3) mg/dL Glucose 124 H (65-110) mg/dL Calcium 9.9 (8.4-10.2) mg/dL Intake and Output 03/26/25 03/27/25 03/27/25 23:59 07:59 15:59 Intake Total 790 477 Balance 790 477 Intake: Oral 790 240 Oral Supplement 237 Other: # Unmeasured Voids 3 1
--- NOTE | 2025-03-27 16:37 | WPDURCON ---
Assessment and Plan Assessment and plan (1) Hydrocele, right: Code(s): N43.3 - Hydrocele, unspecified Status: Acute Plan 79-year-old male with large right hydrocele on CT imaging. 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 Patient states this does not bother him and has not been a problem thus far. He does not want to pursue any treatment. - We will sign off. Urology Consult Note HPI Date Seen: 03/27/25 Requesting Physician: Cynthia Carrasco MD Primary Care Provider: Aris Cuenca MD Consult Narrative Narrative: Murali Koenig is a 79 year old male with history of COPD, chronic hypoxic respiratory failure on 2 L nasal cannula baseline, hypertension, GERD presents to the emergency department for difficulty breathing for the past 3 days. . The patient states he did increase his oxygen from 2 L to 3 L today due to dyspnea. He reports exertional dyspnea, productive cough with phlegm. Large right hydrocele was noted on CT imaging which prompted a Urology consult. Patient reports that he has had this for over 20 years and it has never bothered him or caused him any issues. Patient states he does not intend to have this treated. [facility]LY [facility] Past Medical History Medical History Environmental allergies B12 deficiency History of COVID-19 (~08/2021) Essential (primary) hypertension GERD without esophagitis History of kidney stones Tobacco abuse Acute respiratory failure (~04/2020) COPD (chronic obstructive pulmonary disease) Surgical History Surgical History H/O cataract extraction (~2018) Family History Family History Mother Excessive bleeding Cancer Social History Social History Social History: He lives with and she is his durable power attorney at law for healthcare. He has 4 children. He is retired from being a medical instruction for medical students. He continues to smoke at least a pack a cigarettes a day and is not interested in smoking cessation. He does not use any alcohol marijuana or illicit drugs. Code status DNR Smoking packs per day: 0.5 Smoking cigarettes per day: 10.0 Years smoked: 50 Smoking pack-years: 25.00 Smoking status: Current every day smoker Second hand tobacco smoke exposure: Yes Alcohol intake: never Substance use: never Substance use type: does not use Do You Feel Safe in your Home?: Yes Lack of Transportation: No Lack of Food: Never True Current Housing: I Have Housing Concerned About Future Housing: No Difficulty Paying Gas/Electric Bills: No Difficulty Paying for Meds: No Currently Unemployed: No Education: Master's Degree or Higher Difficulty w/ Childcare or Family Care: YES Living arrangements: with family Additional living arrangements comments: Occupation/Education: retired Gender identity (if verbalized by the patient): Male Sexual Orientation (if Verbalized by the Patient): Straight or Heterosexual Spiritual care concerns: No Agree to blood products: Yes Meds Home Medications and Allergies Home Medications ?Medication ?Instructions ?Recorded ?Confirmed ?Type famotidine 20 mg tablet (Pepcid AC) 20 mg PO DAILY 10/03/22 03/26/25 History inhalational spacing device #10 ea 11/24/22 03/26/25 Rx (Aerochamber Plus Flow-Vu) albuterol sulfate 1.25 mg/3 mL 1.25 mg (3 mL) inhalation Q6H PRN 01/30/25 03/26/25 Rx solution for nebulization shortness of breath or wheezing #360 mL nebulizer accessories #1 ea 01/30/25 03/26/25 Rx hydrochlorothiazide 25 mg tablet 25 mg PO DAILY #90 tabs 02/10/25 03/26/25 Rx albuterol sulfate 90 mcg/actuation 1 - 2 puff inhalation Q6H PRN 02/11/25 03/26/25 Rx aerosol inhaler shortness of breath or wheezing #8.5 grams fluticasone fur. 100 mcg-umeclid See Rx Instructions .Route 02/12/25 03/26/25 Rx 62.5 mcg-vilant 25 mcg .COMPLEX #60 ea inhalat.powder (Trelegy Ellipta) aspirin 81 mg tablet,delayed 81 mg PO DAILY PRN joint pain 03/26/25 03/26/25 History release (Adult Aspirin Regimen) docusate sodium 100 mg capsule 100 mg PO DAILY PRN constipation 03/26/25 03/26/25 History (Col-Rite) Allergies Allergy/AdvReac Type Severity Reaction Status Date / Time No Known Allergies Allergy Verified 03/26/25 10:58 Vital Signs Vital Signs - 24 hr 03/26/25 19:41 03/26/25 19:50 03/26/25 20:00 Temperature 98.1 F Pulse Rate 83 85 95 Respiratory Rate 20 20 18 Blood Pressure 122/54 L Pulse Oximetry 97 Oxygen Delivery Oxygen Flow Rate Fraction of Inspired Oxygen 03/26/25 20:00 03/26/25 20:00 03/27/25 00:00 Temperature Pulse Rate 95 95 89 Respiratory Rate 18 Blood Pressure Pulse Oximetry 97 Oxygen Delivery Nasal Cannula Oxygen Flow Rate 3 Fraction of Inspired Oxygen 30 03/27/25 00:00 03/27/25 02:08 03/27/25 02:14 Temperature 98.3 F Pulse Rate 82 80 82 Respiratory Rate 18 20 20 Blood Pressure 124/58 L Pulse Oximetry 96 Oxygen Delivery Oxygen Flow Rate Fraction of Inspired Oxygen 03/27/25 04:00 03/27/25 05:48 03/27/25 07:15 Temperature 98 F Pulse Rate 90 91 98 Respiratory Rate 18 18 Blood Pressure 115/59 L Pulse Oximetry 98 Oxygen Delivery Oxygen Flow Rate Fraction of Inspired Oxygen 03/27/25 07:16 03/27/25 07:19 03/27/25 08:00 Temperature Pulse Rate 92 108 H Respiratory Rate 18 Blood Pressure Pulse Oximetry 99 Oxygen Delivery Nasal Cannula Oxygen Flow Rate 3.5 Fraction of Inspired Oxygen 03/27/25 08:00 03/27/25 12:00 03/27/25 12:07 Temperature Pulse Rate 177 H 176 H Respiratory Rate Blood Pressure Pulse Oximetry 99 Oxygen Delivery Nasal Cannula Oxygen Flow Rate 3 Fraction of Inspired Oxygen 03/27/25 14:00 03/27/25 14:29 03/27/25 16:00 Temperature 98.5 F Pulse Rate 76 181 H 78 Respiratory Rate 20 Blood Pressure 131/69 114/63 Pulse Oximetry 96 95 Oxygen Delivery Nasal Cannula Oxygen Flow Rate 3 Fraction of Inspired Oxygen Exam Const: General: comfortable and no acute distress Eyes: General: appearance normal, both eyes and all related structures Resp: Effort & Inspection: normal respiratory effort : Male General Exam: Yes normal external exam (except right hydrocele noted on exam. ) Skin: General skin exam: normal color Neuro: Speech: normal speech Extrem: General: normal to inspection Psych: Speech and movement: Normal speech and movement present Affect: normal affect Results Labs 03/27/25 07:54 03/27/25 07:54 Labs: Short CBC 03/27/25 Range/Units 07:54 WBC 15.3 H (4.5-10.0) K/mm3 Hgb 13.0 L (14.0-18.0) g/dL Hct 40.6 L (42.0-52.0) % Plt Count 211 (150-375) k/mm3 BMP 03/27/25 07:54 Sodium 136 L Potassium 3.6 Chloride 94 L Carbon Dioxide 34 H BUN 48 H D Creatinine 1.22 Glucose 124 H Calcium 9.9 Cardiac Enzymes 03/27/25 Range/Units 12:10 Troponin I < 0.012 (0.000-0.034) ng/mL
[2025-03-27] MEDS: IPRATROPIUM BR 0.02% INH SOLN 0.5 MG/2.5 ML VIAL INHALATION ×2 (16:57→20:26)
[2025-03-28] VITALS (26 sets, daily range): BP systolic 127–161; BP diastolic 54–70; PULSE 63–114; RESP 18–24; TEMP 36.5–36.9; O2SAT 93–99
[2025-03-28] MEDS: IPRATROPIUM BR 0.02% INH SOLN 0.5 MG/2.5 ML VIAL INHALATION ×5 (01:15→21:01)
[2025-03-28 04:02] LABS: Hematocrit 36.5 % (42.0-52.0); Hemoglobin 11.6 g/dL (14.0-18.0); Immature Granulocyte Percent A 0.8 % (0-0.5); Lymphocytes Absolute Auto 0.41 K/mm3 (0.9-3.2); Mean Corpuscular HGB Conc 31.8 g/dl (32-36); Mean Corpuscular Hemoglobin 29.6 pg (26-34); Mean Corpuscular Volume 93.1 fl (80-100); Nucleated Red Blood Cells Absolute Auto 0.000 K/mm3 (0.0-0.012); Nucleated Red Blood Cells Perc 0.0 % (0.0-0.2); Platelet Count Result 189 k/mm3 (150-375); Red Blood Count 3.92 M/mm3 (4.6-6.20); White Blood Count 15.5 K/mm3 (4.5-10.0)
[2025-03-28 04:17] LABS: Alanine Aminotransferase 24 U/L (6-50); Albumin Level 3.6 g/dL (3.5-5.1); Alkaline Phosphatase 65 U/L (38-126); Anion Gap 4 mmol/L (4-12); Aspartate Amino Transferase 47 U/L (17-59); Bilirubin,Total 0.2 mg/dL (0.2-1.3); Blood Urea Nitrogen 57 mg/dL (9-20); Calcium 9.7 mg/dL (8.4-10.2); Carbon Dioxide 32 mmol/L (22-30); Chloride 101 mmol/L (98-107); Estimated CRCL calculation 38 ml/min; Estimated Glomerular Filt Rate > 60; Glucose 130 mg/dL (65-110); Magnesium 2.2 mg/dL (1.6-2.3); Potassium 4.8 mmol/L (3.4-5.0); Sodium 137 mmol/L (137-145); Total Protein 6.0 g/dL (6.3-8.2)
[2025-03-28] MEDS: PANTOPRAZOLE 40 MG TABLET PO ×2 (09:18→20:40)
[2025-03-28] MEDS: cefTRIAXone 1 GM in SODIUM CHLORIDE 0.9% IV 50 ML 100 ML IVPB (09:18)
--- NOTE | 2025-03-28 09:38 | P.PNPL_ITS ---
Progress Note: A&P Assessment and Plan (1) COPD with acute exacerbation: Code(s): J44.1 - Chronic obstructive pulmonary disease with (acute) exacerbation Status: Acute Assessment and Plan: GOLD grade 3 group E COPD Patient with 25 pack year tobacco use, currently smoking half a pack a day. PFTs from 01/31/2019 with severe obstructive ventilatory abnormality, FEV1 46% predicted, mild hyperinflation, severe air trapping, moderately decreased DLCO at 55%. CT scan of the chest from 12/11/2018 with moderate centrilobular emphysema. CT scan of the chest on 12/03/2023 with severe apical greater than basilar centrilobular emphysema. Home O2 Eval 12/03/23 - requires 1L rest+activity. At baseline patient tells me he uses 2 L nasal cannula 24-7. echocardiogram on 03/26/2025 with LVEF 65-70, abnormal diastolic function, mildly enlarged left atrium, mild aortic regurg, mitral valve posterior prolapse, moderate to severe mitral valve regurgitation, mild tricuspid regurg with PASP 47. Normal right ventricular size and function. Normal right atrial size. Of note patient's RVSP was 45 on 01/18/2019. On a good day he can walk 50 ft. His home saturations on 2 L are 94% or above. patient tells me he wheezes daily. Patient presents with the 12 day history of worsening cough, rhinorrhea, congestion with no change in his phlegm color volume and worsening shortness of breath. 03/27/25: This morning the patient tells me he is 50% better. His appetite has returned. His cough is at his baseline with minimal phlegm and no hemoptysis. When I enter the room he was on 3 L nasal cannula saturations 97%. I decreased him to 2 L and his saturations were 94%. His cough is the same with a little bit of phlegm. He denies hemoptysis. He is afebrile. White blood cell count 15.3, creatinine 1.22, procalcitonin 0.1, CRP less than 0.5. Patient tells me he has difficulty expectorating his phlegm. Plan: I agree with treating for COPD exacerbation. Patient still has wheezing on exam this morning. I will decrease his Solu-Medrol from 40 Q 8 to 20 q.6. Steroids started on 03/26/2025. patient had an SVT this morning and 170-180 and agree with ipratropium nebulizers q.4 hours and discontinuing albuterol and changing to levalbuterol 1.25 q.8 hours. Patient is being treated for possible pneumonia with ceftriaxone and azithromycin both started on 03/26/2025. Patient is having difficulty expectorating and I will add guaifenesin 1200 mg p.o. b.i.d. and a Cornet flutter valve. I will send an alpha 1 anti trypsin level and genotype. Looking for infectious etiologies I will send a respiratory pathogen panel, urine for Legionella, urine for pneumococcal and a serum mycoplasma IgM. Later in the day patient developed an SVT 170-180 and his albuterol was changed to levalbuterol. Patient converted to sinus with adenosine. Cardiology was consulted and if he has recurrence recommended oral diltiazem. 03/28/2025: This morning the patient tells me he is better. He feels 60% back to his normal. His cough is at is normal and it is dry with no phlegm and no hemoptysis. His dyspnea on exertion is improved. He is afebrile. White blood cell count 15.5, creatinine 1.06. patient tells me the Mucinex which was started yesterday made him cough and he wishes this to be discontinued. I recommended a CT angiogram of the chest and the patient declined. When asked about his cardiac issues the patient tells me he has a tachycardia and when this happens he takes an aspirin and rests and it goes away in 20 minutes. He was annoyed that he receive medical care and transfer to a higher level of care bed yesterday when this happened. Plan: Patient wishes to continue IV steroids at this time and will continue Solu-Medrol 20 q.6. He still has wheezing. He says that he wheezes most days at home even when he is feeling well. Today is day 3 of steroids. Continue ipratropium nebulizer q.4 hours and levalbuterol 1.25 q.8 hours due to his SVT. Will discontinue Guaifenesin. Patient is being treated for possible pneumonia with ceftriaxone and azithromycin both started on 03/26/2025, day 3. Would treat with azithromycin for total of 5 days and ceftriaxone for total of 7 days. Inpatient pulmonary consult services will resume on 03/31/2025. Call the on- call physician with questions. Discussed with Dr. Carrasco, will follow with you (2) Respiratory failure with hypoxia and hypercapnia: Code(s): J96.91 - Respiratory failure, unspecified with hypoxia; J96.92 - Respiratory failure, unspecified with hypercapnia Status: Acute Assessment and Plan: Patient has chronic hypoxic respiratory failure prescribed 1 L at rest and activity in 2023 but currently is been using 2 L nasal cannula 24-7. Patient had an ABG on presentation with the pH of 7.40/54/108 on 3 L nasal cannula. Admission serum bicarb was 34. Prior blood gas on 08/22/2021 was 7.56/32/46 on room air. 03/27/2025: Currently the patient is in no respiratory distress. Plan: goal saturation 90-94%, wean oxygen accordingly. I discussed patient's hypercarbic respiratory failure and that he may qualify for a BiPAP at night if his baseline PaCO2 is greater than 52. I described the BiPAP at night and at this time the patient wishes to continue to be treated for his COPD exacerbation and possible pneumonia and reassess his hypercarbic respiratory failure as an outpatient. 03/28/2025: When I enter the room the patient was on 3 L nasal cannula saturations 100%. I decreased him to a 1 L and his saturations were 92%. Plan: Goal saturation greater than 90%. Wean oxygen accordingly. (3) Tobacco abuse: Code(s): Z72.0 - Tobacco use Status: Acute Assessment and Plan: The patient continues to smoke half a pack a day. Patient has CT angiogram of the chest 12/03/2023 with an 8.7 mm nodule the posterior lateral left costophrenic gutter with recommendation to repeat in 6 months. 03/27/25: Plan: I told the patient that continued tobacco use was making his COPD worse and he disagreed with me. I told him the cigarettes were actively killing him and he told me the COPD was killing him. I told him the cigarettes were making his COPD worse and he again disagreed with me. He has no interest in quitting at this time. 03/28/25: I recommended CT angiogram of the chest To assess for PE as well as pulmonary nodules or masses. Plan: At this time patient declined CT angiogram of the chest. The 8.7 mm nod ule from the scan on 12/03/2023 in the posterior left lateral costophrenic gutter is stable on his CT scan of the abdomen on 03/26/2025. Patient should have a yearly LDCT scan and at this time he is declining a CT scan. Subjective Date/time seen: 03/28/25 09:38 Interval history: 03/27/2025: This is a new pulmonary consult for COPD her with acute on chronic respiratory failure. 79-year-old with a history of hypertension, GERD, GOLD grade 3 group B COPD Patient follows in the [facility] in last seen on 01/30/2025. Here are highlights from that note: COPD 1 year follow-up regarding COPD. He reports overall feeling the same since last visit w/o ER visits. He is needing prescriptions for his respiratory meds. He is currently taking Trelegy 100 and albuterol PRN. Doing well with Trelegy daily. Denies chest pains/tightness, fever, or hemoptysis. Has chronic cough with sputum production, able to expectorate well. He is needing a new nebulizer; will send script. they wouldn't take the October script as he needed an office visit. He has O2 setup in the home that he uses at night and PRN during the day. Currently smoking 0.5ppd; he has no intentions to quit. plan: Continue Trelegy and albuterol p.r.n.. Needed a new nebulizer. Prescribed no oxygen at rest, 1 L with activity and 1 L with sleep. Smoking cessation counseling was provided. He declined LDCT screening. He states if he had lung cancer he would not want to treated. He declined tobacco cessation education. Follow-up 1 year. at baseline patient tells me he uses 2 L nasal cannula 24-7. He continues to smoke half a pack a day For 50 years, total pack-years 25. Says that he has no interest in quitting. On a good day he can walk 50 ft. His home saturations on 2 L are 94% or above. patient tells me he wheezes daily. 03/27/25: Patient has 12 day history of rhinorrhea, worsening cough, with no change in his phlegm color or volume. The patient tells me he wheezes every day and that this is normal for him. He denies fever, chills, rigors. Symptoms progressed and patient presented to the emergency department on 03/26/2025. Blood pressure was 192/92, heart rate 104, respirations 26, saturations on 3 L nasal cannula 91%. Patient has decreased breath sounds but no wheezing. White blood cell count 9.0, eosinophils 13.4%=1206/uL, troponin negative, BNP 572, D-dimer positive at 0.77, ABG on 3 L nasal cannula 7.40/54/108. CT angiogram abdomen and pelvis showed no dissection, centrilobular emphysema in the lower lungs, atelectasis scarring in the right lower lobe and lingula. Patient was treated with Solu-Medrol, DuoNebs, ceftriaxone and azithromycin. This morning the patient tells me he is 50% better. His appetite has returned. His cough is at his baseline with minimal phlegm and no hemoptysis. When I enter the room he was on 3 L nasal cannula saturations 97%. I decreased him to 2 L and his saturations were 94%. His cough is the same with a little bit of phlegm. He denies hemoptysis. He is afebrile. White blood cell count 15.3, creatinine 1.22, procalcitonin 0.1, CRP less than 0.5. Patient tells me he has difficulty expectorating his phlegm. Later in the day patient developed an SVT 170-180 and his albuterol was changed to levalbuterol. Patient converted to sinus with adenosine. Cardiology was consulted and if he has recurrence recommended oral diltiazem. 03/28/2025: This morning the patient tells me he is better. He feels 60% back to his normal. His cough is at is normal and it is dry with no phlegm and no hemoptysis. His dyspnea on exertion is improved. When I enter the room the patient was on 3 L nasal cannula saturations 100%. I decreased him to a 1 L and his saturations were 92%. He is afebrile. White blood cell count 15.5, creatinine 1.06. patient tells me the Mucinex which was started yesterday made him cough and he wishes this to be discontinued. I recommended a CT angiogram of the chest and the patient declined. When asked about his cardiac issues the patient tells me he has a tachycardia and when this happens he takes an aspirin and rests and it goes away in 20 minutes. He was annoyed that he receive medical care and transfer to a higher level of care bed yesterday when this happened. DATA: 03/26/2025: Echo Summary 1. Complete two-dimensional, color flow and Doppler transthoracic echocardiogram is performed. 2. Left ventricular chamber dimension is normal. 3. Left ventricular systolic function is normal, estimated at 65-70. 4. There is mildly increased left ventricular wall thickness. 5. The left ventricular diastolic function is abnormal. 6. Left atrial chamber dimension is mildly enlarged. 7. There is moderate aortic valve sclerosis. 8. There is mild aortic valve regurgitation. 9. 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 10. There is moderate to severe mitral valve regurgitation. 11. The mitral valve annulus is moderately calcified. 12. There is mild tricuspid valve regurgitation. 13. Moderate pulmonary hypertension, estimated pulmonary arterial systolic pressure is 47 mmHg. 14. There is moderate pulmonic regurgitation. 15. The aortic root size at the sinus of Valsalva is mildly dilated. 16. There is moderate aortic atherosclerosis. Right Ventricle Right ventricular chamber dimension is normal. Right ventricular systolic function is normal. Right Atria Right atrial chamber dimension is normal. Atrial Septum Intact interatrial septum visualized by color flow imaging. 03/26/25: EXAMINATION: CTA abdomen pelvis INDICATION: Abdominal pain. Possible dissection. TECHNIQUE: Computed tomographic angiography (CTA) of the abdomen and pelvis was performed with 100 mL Omnipaque-350 intravenous contrast. Additional 3D reconstructions utilizing rotating maximum intensity projection (MIP) were performed. Automated exposure control and iterative reconstruction technique were employed. The dose-length product was 224.64 mGy-cm. COMPARISON: 03/26/2025 at 2:13 AM FINDINGS: Severe emphysema in the visualized lower lungs. Linear band of atelectasis/scarring with associated volume loss in the right lower lobe. Additional discoid atelectasis in the lingula along the major fissure. Small calcified nodule right lower lung along with calcified right hilar lymph nodes consistent with old granulomatous disease. Heart size is normal. Atherosclerotic coronary artery calcification. No pericardial or pleural effusion. Decrease in size of a likely benign chronic 3.9 cm cystic lesion at the dome of the liver which has decreased in size from 5.[address] dated 05/18/13. Gallbladder, spleen, pancreas and bilateral adrenal glands are normal. There are multiple bilateral renal cysts the largest on the left measuring up to 3.9 cm. Couple small regions of cortical scarring at the left kidney. No bowel obstruction. Excreted contrast in the bladder. Large right hydrocele in the scrotum. No free intraperitoneal gas or fluid. No pathologically enlarged abdominal or pelvic lymphadenopathy. Abdominal aorta is normal in caliber but with a couple small penetrating atherosclerotic ulcers position along the right anterior and left posterior aspect of the infrarenal abdominal aorta. 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 Additional small penetrating atherosclerotic ulcers along the bilateral common iliac and internal iliac arteries. Extensive atherosclerotic plaque along the aorta and many of the other arteries in the abdomen, pelvis and proximal thighs. There are moderate stenoses at the right external iliac and proximal right superficial femoral arteries. Moderate lumbar and lower thoracic spondylosis. IMPRESSION: 1. Extensive atherosclerotic disease with a couple small penetrating atherosclerotic ulcers along the infrarenal abdominal aorta as well as along the bilateral common and internal iliac arteries. 2. Moderate stenosis at the right external iliac and proximal left femoral arteries. 3. Large right hydrocele. Chest CTA 12/03/23 - EXAMINATION: CTA chest PE protocol DATE: 12/03/2023 11:33 INDICATION: Shortness of breath TECHNIQUE: Computed tomography angiography (CTA) of the chest was performed with 100 mL Omnipaque-350 intravenous contrast timed to evaluate the pulmonary arteries. Coronal maximum intensity projection 3D-reconstructions were created by the technologist. Automated exposure control and iterative reconstruction technique were employed. Exam dose: 202.69 mGy-cm total exam DLP. COMPARISON: 12/03/2023 portable AP chest 12/11/2018 CTA chest FINDINGS: There is diagnostic contrast enhancement of pulmonary arteries and no evidence of pulmonary embolism. There is extensive atherosclerotic calcification of the thoracic and abdominal aorta as well as great vessels and coronary arteries, celiac, superior mesenteric and renal arteries. No thoracic or abdominal aortic aneurysm or dissection. Normal heart size. No pericardial or pleural effusion. Prominent emphysematous changes of the lungs Minimal dependent atelectasis in the left upper lobe 8.7 mm nodular density at the posterolateral left costophrenic gutter, left lower lobe. 6 month follow-up CT chest is recommended. Right the lobe and adjacent anterior segment right lower lobe. There is infiltrate, atelectasis and/or scarring in the right lower lobe. Stable prominent posterior hepatic dome cyst 12/11/2018. Included skeletal structures are unremarkable. IMPRESSION: No evidence of pulmonary embolism Prominent emphysematous changes Recommend 6 month follow-up CT with attention to approximately 8.7 mm nodular density at posterolateral left costophrenic gutter, left lower lobe Occasional areas of infiltrate or atelectasis in the dependent left upper lobe, middle lobe and right lower lobe Home O2 Eval 12/03/23 - requires 1L rest+activity PFT 01/31/2019 - PFT report: FEV1 Severely decreased at 46%, FVC 71%. There is airflow obstruction. Severe decrease in FEF 12/10/2074. No change with bronchodilator. Lung volumes: Mild hyperinflation, severe air trapping, increased airway resistance. Diffusion: Moderate decrease 55% DLCO. Impression: Severe obstructive ventilatory impairment, mild hyperinflation, severe air trapping, mild increase in airways resistance, moderate diffusion impairment. Vital capacity is much higher than the forced vital capacity consistent with dynamic airway collapse. 05/18/2013: CT ABDOMEN/PELVIS W/O KUB INDICATION: Left flank pain. History of kidney stones. COMPARISON: CT renal scan is not available from archive. FINDINGS: Normal heart size. Prominent coronary artery calcifications. No pericardial or pleural effusion. There is some patchy infiltrate and/or atelectasis at the lung bases and involving middle lobe, lingula as well as both lower lobes, most prominent in the right lower lobe. Review of Systems Constitutional: Constitutional: Reports no additional constitutional complaints Eyes: Eyes: Reports no additional eye complaints ENT: Reports system reviewed and no additional complaints, except as documented Cardiovascular: Cardiovascular: Reports no additional cardiovascular complaints Respiratory: Respiratory: Reports no additional respiratory complaints Gastrointestinal: Gastrointestinal: Reports no additional gastrointestinal complaints Musculoskeletal: Musculoskeletal: Reports no additional musculoskeletal complaints Neurologic: Reports system reviewed and no additional complaints, except as documented Psychiatric: Psychiatric: Reports no additional psychiatric complaints Endocrine: Endocrine: Reports no additional endocrine complaints Hematologic/Lymphatic: Hematologic/Lymphatic: Reports no additional hematologic/lymphatic complaints Allergic/Immunologic: Allergic/Immunologic: Reports no additional allergic/immunologic complaints Exam Const: General: cooperative, healthy appearing and comfortable Orientation/consciousness: oriented to person, oriented to place and oriented to time HENMT: Head: normal to inspection Ears: hearing grossly normal bilaterally Eyes: General: appearance normal, both eyes and all related structures Neck: Neck: normal visual inspection Chest: Chest palpation & inspection: normal inspection of the chest Resp: Effort & Inspection: normal respiratory effort and able to speak in complete sentences Auscultation: no crackles, no rales, no rhonchi, wheezes and diminished lung sounds Other: Increased wheezes today. Cardio: Jugular venous distension: no JVD GI: Inspection: normal to inspection Skin: General skin exam: normal color Neuro: General: oriented to person, oriented to place and oriented to time Extrem: General: normal to inspection and no edema Psych: Appearance: grossly normal Objective Data Vital Signs Vital Signs: Vital Signs - 24 hr 03/27/25 12:00 03/27/25 12:07 03/27/25 14:00 Temperature Pulse Rate 177 H 176 H 76 Respiratory Rate Blood Pressure Pulse Oximetry Oxygen Delivery Oxygen Flow Rate 03/27/25 14:29 03/27/25 16:00 03/27/25 16:00 Temperature 36.9 C Pulse Rate 181 H 78 Respiratory Rate 20 Blood Pressure 131/69 114/63 Pulse Oximetry 96 95 93 Oxygen Delivery Nasal Cannula Nasal Cannula Oxygen Flow Rate 3 3 03/27/25 16:00 03/27/25 16:58 03/27/25 17:16 Temperature Pulse Rate 88 80 89 Respiratory Rate 18 20 Blood Pressure Pulse Oximetry Oxygen Delivery Oxygen Flow Rate 03/27/25 17:17 03/27/25 18:00 03/27/25 19:57 Temperature 36.9 C Pulse Rate 84 87 Respiratory Rate 23 H Blood Pressure 142/60 H Pulse Oximetry 96 92 Oxygen Delivery Nasal Cannula Oxygen Flow Rate 3 03/27/25 20:00 03/27/25 20:00 03/27/25 20:26 Temperature Pulse Rate 90 90 100 Respiratory Rate 26 H 24 H Blood Pressure Pulse Oximetry 92 Oxygen Delivery Nasal Cannula Oxygen Flow Rate 3 03/27/25 20:35 03/27/25 22:00 03/27/25 23:13 Temperature 36.8 C Pulse Rate 98 75 77 Respiratory Rate 26 H 22 H Blood Pressure 118/53 L Pulse Oximetry 96 Oxygen Delivery Oxygen Flow Rate 03/28/25 00:00 03/28/25 00:00 03/28/25 01:16 Temperature Pulse Rate 73 75 85 Respiratory Rate 20 24 H Blood Pressure Pulse Oximetry 98 Oxygen Delivery Nasal Cannula Oxygen Flow Rate 3 03/28/25 01:25 03/28/25 02:00 03/28/25 04:00 Temperature Pulse Rate 85 73 70 Respiratory Rate 22 H Blood Pressure Pulse Oximetry Oxygen Delivery Oxygen Flow Rate 03/28/25 04:00 03/28/25 04:13 03/28/25 04:18 Temperature 36.8 C Pulse Rate 70 77 77 Respiratory Rate 20 22 H Blood Pressure 127/54 L Pulse Oximetry 98 99 Oxygen Delivery Nasal Cannula Oxygen Flow Rate 3 03/28/25 04:22 03/28/25 06:00 03/28/25 08:00 Temperature 36.8 C Pulse Rate 79 63 96 Respiratory Rate 20 22 H Blood Pressure 154/54 H Pulse Oximetry 94 Oxygen Delivery Oxygen Flow Rate 03/28/25 09:04 03/28/25 09:06 03/28/25 09:12 Temperature Pulse Rate 96 105 H Respiratory Rate 18 20 Blood Pressure Pulse Oximetry 97 Oxygen Delivery Nasal Cannula Oxygen Flow Rate 3 Intake/Output Intake/Output: Intake & Output 03/25/25 03/26/25 03/27/25 03/28/25 23:59 23:59 23:59 23:59 Intake Total 1140 747 790 Output Total 300 Balance 840 747 790 Meds/Results Medications: Active Medications Generic Name Dose Route Start Last Admin Trade Name Freq PRN Reason Stop Dose Admin Acetaminophen 325 mg 03/26/25 09:21 Acetaminophen 325 Mg Tablet PO Q6H PRN Mild Pain (1-3) or Fever Aspirin 81 mg 03/26/25 15:37 Aspirin 81 Mg Enteric Tablet PO DAILY PRN joint pain Docusate Sodium 100 mg 03/26/25 15:37 Docusate Sodium 100 Mg Capsule PO DAILY PRN Constipation Guaifenesin 1,200 mg 03/27/25 10:55 03/28/25 09:19 Guaifenesin 12 Hr 600 Mg Tabcr PO Not Given Q12HR KORIN Heparin Sodium (Porcine) 5,000 units 03/26/25 21:00 03/28/25 09:18 Heparin Sodium 5,000 Units/Ml Vial SUB-Q 5,000 units Q12HR KORIN Administration Ceftriaxone Sodium 1 gm/ 50 mls @ 100 mls/hr 03/26/25 09:00 03/28/25 09:18 Sodium Chloride IVPB 03/30/25 09:29 100 mls/hr Q24H KORIN Administration Azithromycin 250 mg in 250 mls @ 250 mls/hr 03/26/25 10:00 03/27/25 10:21 Zithromax IVPB 03/28/25 10:59 250 mls/hr Q24H KORIN Administration Ipratropium Mead 0.5 mg 03/27/25 16:00 03/28/25 09:02 Ipratropium Br 0.02% Inh Soln 0.5 Mg/2.5 Ml Vial INHALATION 0.5 mg Q4HRT KORIN Administration Levalbuterol HCl 1.25 mg 03/27/25 16:00 03/28/25 09:03 Levalbuterol Neb 1.25 Mg/3 Ml INHALATION 1.25 mg Q8HRT KORIN Administration Methylprednisolone Sodium Succinate 20 mg 03/27/25 18:00 03/28/25 06:46 Methylprednisolone Sod Succ 40 Mg Vial IV PUSH 20 mg Q6HR KORIN Administration Pantoprazole Sodium 40 mg 03/26/25 09:00 03/28/25 09:18 Pantoprazole 40 Mg Tablet PO 40 mg Q12HR KORIN Administration Perflutren Lipid Microsphere 0 ml 03/26/25 09:23 Perflutren Lipid Microspheres 1.5 Ml Vial Diluted To 10 Ml Total Volume IV PUSH 03/29/25 09:23 ONCE PRN adequate visualization Protocol Radiology Results: ITS Impressions Abdomen/Pelvis CT 03/26/25 08:52 IMPRESSION: 1. Findings suggestive of gastritis. 2. Right lower lobe consolidation. Abdomen/Pelvis CTA 03/26/25 09:09 IMPRESSION: 1. Extensive atherosclerotic disease with a couple small penetrating atherosclerotic ulcers along the infrarenal abdominal aorta as well as along the bilateral common and internal iliac arteries. 2. Moderate stenosis at the right external iliac and proximal left femoral arteries. 3. Large right hydrocele. Chest X-Ray 03/27/25 12:19 IMPRESSION: Diffuse interstitial thickening in the left lung. Bilateral pulmonary vascular congestion. Bilateral perihilar bronchial wall thickening. Findings can represent CHF versus pneumonia in appropriate clinical settings.. Findings can represent pneumonia in appropriate clinical settings. Clinical correlation is recommended. Short-term follow-up chest radiograph is recommended after appropriate clinical therapy to document stability and/or resolution. Labs Labs: Laboratory Results - last 24 hr 03/27/25 03/27/25 03/27/25 07:54 12:00 12:10 WBC RBC Hgb Hct MCV MCH MCHC RDW Plt Count MPV Immature Gran % (Auto) Neut % (Auto) Lymph % (Auto) [place] % (Auto) Eos % (Auto) Baso % (Auto) Lymph # (Auto) [place] # (Auto) Eos # (Auto) Baso # (Auto) Abs Immat Gran (auto) Absolute Neuts (auto) Absolute Nucleated RBC Nucleated RBC % Sodium Potassium Chloride Carbon Dioxide Anion Gap BUN Creatinine Estim Creat Clear Calc Estimated GFR Glucose POC Capillary Glucose 141 H Lactic Acid 2.9 H Calcium Magnesium 2.1 Total Bilirubin AST ALT Alkaline Phosphatase Troponin I < 0.012 Total Protein Albumin Procalcitonin 0.1 03/27/25 03/28/25 14:27 03:55 WBC 15.5 H RBC 3.92 L Hgb 11.6 L Hct 36.5 L MCV 93.1 MCH 29.6 MCHC 31.8 L RDW 13.9 Plt Count 189 MPV 10.1 Immature Gran % (Auto) 0.8 H Neut % (Auto) 94.8 H Lymph % (Auto) 2.6 L [place] % (Auto) 1.7 L Eos % (Auto) 0.0 Baso % (Auto) 0.1 L Lymph # (Auto) 0.41 L [place] # (Auto) 0.3 Eos # (Auto) 0.0 Baso # (Auto) 0.0 Abs Immat Gran (auto) 0.12 H Absolute Neuts (auto) 14.7 H Absolute Nucleated RBC 0.000 Nucleated RBC % 0.0 Sodium 137 Potassium 4.8 Chloride 101 Carbon Dioxide 32 H Anion Gap 4 BUN 57 H Creatinine 1.06 Estim Creat Clear Calc 38 Estimated GFR > 60 Glucose 130 H POC Capillary Glucose Lactic Acid 1.8 1.1 Calcium 9.7 Magnesium 2.2 Total Bilirubin 0.2 AST 47 ALT 24 Alkaline Phosphatase 65 Troponin I Total Protein 6.0 L Albumin 3.6 Procalcitonin
--- NOTE | 2025-03-28 10:33 | PCPTNOTE ---
Attempted PT evaluation, pt refused stating he was mobilizing at his baseline. Therapist present to see pt ambulate to bathroom and noted to be independent with ambulation. Nursing aware.
[2025-03-28] MEDS: AZITHROMYCIN 250 MG/NS 250 ML 250 MG/250 ML BAG IVPB (10:52)
--- NOTE | 2025-03-28 12:39 | PCRCNOTE ---
RN increased 02 to 2 LNC due to Sp02 83% with ambulation.
--- NOTE | 2025-03-28 14:27 | P.PNIM_ITS ---
Progress Note: A&P Assessment and Plan (1) Essential (primary) hypertension: Code(s): I10 - Essential (primary) hypertension Status: Chronic (2) GERD without esophagitis: Code(s): K21.9 - Gastro-esophageal reflux disease without esophagitis Status: Acute (3) Gastritis: Qualifiers: Chronicity: unspecified Gastritis bleeding: without bleeding Gastritis type: unspecified gastritis Qualified Code(s): K29.70 - Gastritis, unspecified, without bleeding Code(s): K29.70 - Gastritis, unspecified, without bleeding Status: Acute (4) COPD (chronic obstructive pulmonary disease): Qualifiers: COPD type: unspecified COPD Qualified Code(s): J44.9 - Chronic obstructive pulmonary disease, unspecified Code(s): J44.9 - Chronic obstructive pulmonary disease, unspecified Status: Acute (5) Acute and chronic respiratory failure with hypoxia: Code(s): J96.21 - Acute and chronic respiratory failure with hypoxia Status: Acute (6) CAP (community acquired pneumonia): Qualifiers: Laterality: right Lung location: lower lobe of lung Qualified Code(s): J18.9 - Pneumonia, unspecified organism Code(s): J18.9 - Pneumonia, unspecified organism Status: Acute (7) Tobacco abuse: Code(s): Z72.0 - Tobacco use Status: Acute Plan 79-year-old male with history of COPD, chronic hypoxic respiratory failure on 2 L nasal cannula baseline, hypertension, GERD presents to the emergency department for difficulty breathing for the past [address] abdomen pelvis/chest suggestive of right lower lobe consolidation, gastritis. Tested negative for influenza a, COVID, RSV, urine strep, Legionella antigen 1. Acute on chronic respiratory failure: Admit to telemetry medicine Continue with O2 support Now on Levalbuterol and Ipratropium bromide, Albuterol stopped due to SVT ON IV steroid Obtain blood culture Continue on azithromycin, ceftriaxone ECHO showed abnormal diastolic function adn PASP 47mmHg Tobacco cessation counseling Discussed with Dr Grande, from pulmonology 2. Atherosclerotic disease: Denies abdominal pain Ulcerated atherosclerotic disease on CT abdomen Will benefit from vascular surgery referral as an outpatient LDL 71 Will consult with vascular surgery prior to discharge 3. Gastritis: on PPI 4. Code status: Do not resuscitate 5. Pre diabetes: Monitor for hyperglycemia in setting of steroid use SVT ECHO and EKG reviewed resolved, s/p Adenosine maintain K 4.8 and Mg 2.2 6. DVT prophylaxis: Heparin subcu Awaiting PT/OT eval Subjective Date/time seen: 03/28/25 14:27 Interval history: Comfortable at bedside Now on NSR s/p Adenosine Review of Systems Review of Systems: All systems reviewed & are unremarkable except as noted in HPI and below Exam Narrative: GENERAL: Well-appearing, well-nourished, and in no acute distress. On nasal cannula HEAD: Normocephalic, atraumatic. EYES: EOMI. ENT: Nares clear, no rhinorrhea or epistaxis. Mucous membranes moist. NECK: Supple. CHEST: Decreased lung sounds throughout all lung gaytan.Actively coughing on exam HEART: Regular rate and rhythm. No murmur heard. Normal peripheral pulses. ABDOMEN: Soft umbilical hernia that is easily reduced and nontender. Tenderness to the right lower quadrant with no rebound or rigidity. No CVA tenderness. Normoactive bowel sounds. EXTREMITIES: Normal range of motion. No edema. Negative Homans bilaterally SKIN: Warm, dry, no rash. NEURO: No focal deficits. Alert and oriented x3 Objective Data Vital Signs Vital Signs: Vital Signs - 24 hr 03/27/25 14:29 03/27/25 16:00 03/27/25 16:00 Temperature 98.5 F Pulse Rate 181 H 78 Respiratory Rate 20 Blood Pressure 131/69 114/63 Pulse Oximetry 96 95 93 Oxygen Delivery Nasal Cannula Nasal Cannula Oxygen Flow Rate 3 3 03/27/25 16:00 03/27/25 16:58 03/27/25 17:16 Temperature Pulse Rate 88 80 89 Respiratory Rate 18 20 Blood Pressure Pulse Oximetry Oxygen Delivery Oxygen Flow Rate 03/27/25 17:17 03/27/25 18:00 03/27/25 19:57 Temperature 98.4 F Pulse Rate 84 87 Respiratory Rate 23 H Blood Pressure 142/60 H Pulse Oximetry 96 92 Oxygen Delivery Nasal Cannula Oxygen Flow Rate 3 03/27/25 20:00 03/27/25 20:00 03/27/25 20:26 Temperature Pulse Rate 90 90 100 Respiratory Rate 26 H 24 H Blood Pressure Pulse Oximetry 92 Oxygen Delivery Nasal Cannula Oxygen Flow Rate 3 03/27/25 20:35 03/27/25 22:00 03/27/25 23:13 Temperature 98.3 F Pulse Rate 98 75 77 Respiratory Rate 26 H 22 H Blood Pressure 118/53 L Pulse Oximetry 96 Oxygen Delivery Oxygen Flow Rate 03/28/25 00:00 03/28/25 00:00 03/28/25 01:16 Temperature Pulse Rate 73 75 85 Respiratory Rate 20 24 H Blood Pressure Pulse Oximetry 98 Oxygen Delivery Nasal Cannula Oxygen Flow Rate 3 03/28/25 01:25 03/28/25 02:00 03/28/25 04:00 Temperature Pulse Rate 85 73 70 Respiratory Rate 22 H Blood Pressure Pulse Oximetry Oxygen Delivery Oxygen Flow Rate 03/28/25 04:00 03/28/25 04:13 03/28/25 04:18 Temperature 98.2 F Pulse Rate 70 77 77 Respiratory Rate 20 22 H Blood Pressure 127/54 L Pulse Oximetry 98 99 Oxygen Delivery Nasal Cannula Oxygen Flow Rate 3 03/28/25 04:22 03/28/25 06:00 03/28/25 08:00 Temperature 98.2 F Pulse Rate 79 63 96 Respiratory Rate 20 22 H Blood Pressure 154/54 H Pulse Oximetry 94 Oxygen Delivery Oxygen Flow Rate 03/28/25 08:00 03/28/25 09:04 03/28/25 09:06 Temperature Pulse Rate 107 H 96 Respiratory Rate 18 Blood Pressure Pulse Oximetry 93 97 Oxygen Delivery Nasal Cannula Nasal Cannula Oxygen Flow Rate 2 3 03/28/25 09:12 03/28/25 11:34 03/28/25 12:00 Temperature 97.7 F Pulse Rate 105 H 100 105 H Respiratory Rate 20 20 Blood Pressure 132/58 L Pulse Oximetry 98 93 Oxygen Delivery Nasal Cannula Oxygen Flow Rate 2 03/28/25 12:36 03/28/25 12:47 Temperature Pulse Rate 114 H 104 H Respiratory Rate 22 H 22 H Blood Pressure Pulse Oximetry Oxygen Delivery Oxygen Flow Rate Intake/Output Intake/Output: Intake & Output 03/25/25 03/26/25 03/27/25 03/28/25 23:59 23:59 23:59 23:59 Intake Total 1140 997 790 Output Total 300 Balance 840 997 790 Meds/Results Medications: Active Medications Generic Name Dose Route Start Last Admin Trade Name Freq PRN Reason Stop Dose Admin Acetaminophen 325 mg 03/26/25 09:21 Acetaminophen 325 Mg Tablet PO Q6H PRN Mild Pain (1-3) or Fever Aspirin 81 mg 03/26/25 15:37 Aspirin 81 Mg Enteric Tablet PO DAILY PRN joint pain Docusate Sodium 100 mg 03/26/25 15:37 Docusate Sodium 100 Mg Capsule PO DAILY PRN Constipation Heparin Sodium (Porcine) 5,000 units 03/26/25 21:00 03/28/25 09:18 Heparin Sodium 5,000 Units/Ml Vial SUB-Q 5,000 units Q12HR KORIN Administration Ceftriaxone Sodium 1 gm/ 50 mls @ 100 mls/hr 03/26/25 09:00 03/28/25 09:18 Sodium Chloride IVPB 04/01/25 09:29 100 mls/hr Q24H KORIN Administration Azithromycin 500 mg/ Sodium 250 mls @ 250 mls/hr 03/29/25 09:00 Chloride IVPB 03/30/25 09:59 QAM KORIN Ipratropium [place] 0.5 mg 03/27/25 16:00 03/28/25 12:34 Ipratropium Br 0.02% Inh Soln 0.5 Mg/2.5 Ml Vial INHALATION 0.5 mg Q4HRT KORIN Administration Levalbuterol HCl 1.25 mg 03/27/25 16:00 03/28/25 09:03 Levalbuterol Neb 1.25 Mg/3 Ml INHALATION 1.25 mg Q8HRT KORIN Administration Methylprednisolone Sodium Succinate 20 mg 03/27/25 18:00 03/28/25 12:25 Methylprednisolone Sod Succ 40 Mg Vial IV PUSH 20 mg Q6HR KORIN Administration Pantoprazole Sodium 40 mg 03/26/25 09:00 03/28/25 09:18 Pantoprazole 40 Mg Tablet PO 40 mg Q12HR KORIN Administration Perflutren Lipid Microsphere 0 ml 03/26/25 09:23 Perflutren Lipid Microspheres 1.5 Ml Vial Diluted To 10 Ml Total Volume IV PUSH 03/29/25 09:23 ONCE PRN adequate visualization Protocol Radiology Results: ITS Impressions Abdomen/Pelvis CT 03/26/25 08:52 IMPRESSION: 1. Findings suggestive of gastritis. 2. Right lower lobe consolidation. Abdomen/Pelvis CTA 03/26/25 09:09 IMPRESSION: 1. Extensive atherosclerotic disease with a couple small penetrating atherosclerotic ulcers along the infrarenal abdominal aorta as well as along the bilateral common and internal iliac arteries. 2. Moderate stenosis at the right external iliac and proximal left femoral arteries. 3. Large right hydrocele. Chest X-Ray 03/27/25 12:19 IMPRESSION: Diffuse interstitial thickening in the left lung. Bilateral pulmonary vascular congestion. Bilateral perihilar bronchial wall thickening. Findings can represent CHF versus pneumonia in appropriate clinical settings.. Findings can represent pneumonia in appropriate clinical settings. Clinical correlation is recommended. Short-term follow-up chest radiograph is recommended after appropriate clinical therapy to document stability and/or resolution. Labs Labs: Laboratory Results - last 24 hr 03/27/25 03/28/25 14:27 03:55 WBC 15.5 H RBC 3.92 L Hgb 11.6 L Hct 36.5 L MCV 93.1 MCH 29.6 MCHC 31.8 L RDW 13.9 Plt Count 189 MPV 10.1 Immature Gran % (Auto) 0.8 H Neut % (Auto) 94.8 H Lymph % (Auto) 2.6 L [place] % (Auto) 1.7 L Eos % (Auto) 0.0 Baso % (Auto) 0.1 L Lymph # (Auto) 0.41 L [place] # (Auto) 0.3 Eos # (Auto) 0.0 Baso # (Auto) 0.0 Abs Immat Gran (auto) 0.12 H Absolute Neuts (auto) 14.7 H Absolute Nucleated RBC 0.000 Nucleated RBC % 0.0 Sodium 137 Potassium 4.8 Chloride 101 Carbon Dioxide 32 H Anion Gap 4 BUN 57 H Creatinine 1.06 Estim Creat Clear Calc 38 Estimated GFR > 60 Glucose 130 H Lactic Acid 1.8 1.1 Calcium 9.7 Magnesium 2.2 Total Bilirubin 0.2 AST 47 ALT 24 Alkaline Phosphatase 65 Total Protein 6.0 L Albumin 3.6 Quality VTE Prophylaxis VTE prophylaxis: pharmacologic ordered
[2025-03-28] MEDS: DOCUSATE SODIUM 100 MG CAPSULE PO (20:41)
[2025-03-29] VITALS (30 sets, daily range): BP systolic 116–149; BP diastolic 48–71; PULSE 68–113; RESP 18–22; TEMP 36.5–36.8; O2SAT 90–97
[2025-03-29] MEDS: IPRATROPIUM BR 0.02% INH SOLN 0.5 MG/2.5 ML VIAL INHALATION ×7 (00:31→21:00)
[2025-03-29 04:06] LABS: Hematocrit 36.1 % (42.0-52.0); Hemoglobin 11.4 g/dL (14.0-18.0); Immature Granulocyte Percent A 1.2 % (0-0.5); Lymphocytes Absolute Auto 0.40 K/mm3 (0.9-3.2); Mean Corpuscular HGB Conc 31.6 g/dl (32-36); Mean Corpuscular Hemoglobin 30.0 pg (26-34); Mean Corpuscular Volume 95.0 fl (80-100); Nucleated Red Blood Cells Absolute Auto 0.000 K/mm3 (0.0-0.012); Nucleated Red Blood Cells Perc 0.0 % (0.0-0.2); Platelet Count Result 174 k/mm3 (150-375); Red Blood Count 3.80 M/mm3 (4.6-6.20); White Blood Count 11.4 K/mm3 (4.5-10.0)
[2025-03-29 04:26] LABS: Alanine Aminotransferase 28 U/L (6-50); Albumin Level 3.5 g/dL (3.5-5.1); Alkaline Phosphatase 58 U/L (38-126); Anion Gap -1 mmol/L (4-12); Aspartate Amino Transferase 45 U/L (17-59); Bilirubin,Total 0.2 mg/dL (0.2-1.3); Blood Urea Nitrogen 57 mg/dL (9-20); Calcium 9.4 mg/dL (8.4-10.2); Carbon Dioxide 35 mmol/L (22-30); Chloride 102 mmol/L (98-107); Estimated CRCL calculation 47 ml/min; Estimated Glomerular Filt Rate > 60; Glucose 120 mg/dL (65-110); Magnesium 2.3 mg/dL (1.6-2.3); Potassium 4.6 mmol/L (3.4-5.0); Sodium 136 mmol/L (137-145); Total Protein 5.8 g/dL (6.3-8.2)
[2025-03-29] MEDS: AZITHROMYCIN IV 500 MG in SODIUM CHLORIDE 0.9% IV 250 ML IVPB (09:19)
[2025-03-29] MEDS: DOCUSATE SODIUM 100 MG CAPSULE PO ×2 (09:19→21:36)
[2025-03-29] MEDS: PANTOPRAZOLE 40 MG TABLET PO ×2 (09:19→21:36)
[2025-03-29] MEDS: cefTRIAXone 1 GM in SODIUM CHLORIDE 0.9% IV 50 ML 100 ML IVPB (09:21)
--- NOTE | 2025-03-29 16:24 | PM.IMPN ---
Progress Note: A&P Assessment and Plan (1) Essential (primary) hypertension: Code(s): I10 - Essential (primary) hypertension Status: Chronic (2) GERD without esophagitis: Code(s): K21.9 - Gastro-esophageal reflux disease without esophagitis Status: Acute (3) Gastritis: Qualifiers: Chronicity: unspecified Gastritis bleeding: without bleeding Gastritis type: unspecified gastritis Qualified Code(s): K29.70 - Gastritis, unspecified, without bleeding Code(s): K29.70 - Gastritis, unspecified, without bleeding Status: Acute (4) COPD (chronic obstructive pulmonary disease): Qualifiers: COPD type: unspecified COPD Qualified Code(s): J44.9 - Chronic obstructive pulmonary disease, unspecified Code(s): J44.9 - Chronic obstructive pulmonary disease, unspecified Status: Acute (5) Acute and chronic respiratory failure with hypoxia: Code(s): J96.21 - Acute and chronic respiratory failure with hypoxia Status: Acute (6) CAP (community acquired pneumonia): Qualifiers: Laterality: right Lung location: lower lobe of lung Qualified Code(s): J18.9 - Pneumonia, unspecified organism Code(s): J18.9 - Pneumonia, unspecified organism Status: Acute (7) Tobacco abuse: Code(s): Z72.0 - Tobacco use Status: Acute Plan 79-year-old male with history of COPD, chronic hypoxic respiratory failure on 2 L nasal cannula baseline, hypertension, GERD presents to the emergency department for difficulty breathing for the past [address] abdomen pelvis/chest suggestive of right lower lobe consolidation, gastritis. Tested negative for influenza a, COVID, RSV, urine strep, Legionella antigen 1. Acute on chronic respiratory failure: Admit to telemetry medicine Continue with O2 support Now on Levalbuterol and Ipratropium bromide, Albuterol stopped due to SVT ON IV steroid Obtain blood culture Continue on azithromycin, ceftriaxone ECHO showed abnormal diastolic function adn PASP 47mmHg Tobacco cessation counseling Discussed with Dr Grande, from pulmonology 2. Atherosclerotic disease: Denies abdominal pain Ulcerated atherosclerotic disease on CT abdomen Will benefit from vascular surgery referral as an outpatient LDL 71 Will consult with vascular surgery prior to discharge 3. Gastritis: on PPI 4. Code status: Do not resuscitate 5. Pre diabetes: Monitor for hyperglycemia in setting of steroid use SVT ECHO and EKG reviewed resolved, s/p Adenosine maintain K 4.8 and Mg 2.2 6. DVT prophylaxis: Heparin subcu Discharge tomorrow on home with hospice Subjective Date/time seen: 03/29/25 16:24 Interval history: Comfortable at bedside for hospice discharge tomorrow Review of Systems Review of Systems: All systems reviewed & are unremarkable except as noted in HPI and below Exam Narrative: GENERAL: Well-appearing, well-nourished, and in no acute distress. On nasal cannula HEAD: Normocephalic, atraumatic. EYES: EOMI. ENT: Nares clear, no rhinorrhea or epistaxis. Mucous membranes moist. NECK: Supple. CHEST: Decreased lung sounds throughout all lung gaytan.Actively coughing on exam HEART: Regular rate and rhythm. No murmur heard. Normal peripheral pulses. ABDOMEN: Soft umbilical hernia that is easily reduced and nontender. Tenderness to the right lower quadrant with no rebound or rigidity. No CVA tenderness. Normoactive bowel sounds. EXTREMITIES: Normal range of motion. No edema. Negative Homans bilaterally SKIN: Warm, dry, no rash. NEURO: No focal deficits. Alert and oriented x3 Objective Data Vital Signs Vital Signs: Vital Signs - 24 hr 03/28/25 19:36 03/28/25 20:00 03/28/25 20:00 Temperature 98.4 F Pulse Rate 105 H 91 Respiratory Rate 20 Blood Pressure 161/70 H Pulse Oximetry 93 93 Oxygen Delivery Nasal Cannula Oxygen Flow Rate 2 03/28/25 21:05 03/28/25 21:05 03/28/25 21:15 Temperature Pulse Rate 105 H 102 H Respiratory Rate 22 H 22 H Blood Pressure Pulse Oximetry 95 Oxygen Delivery Nasal Cannula Oxygen Flow Rate 2 03/28/25 22:00 03/28/25 23:54 03/29/25 00:00 Temperature 98.1 F Pulse Rate 106 H 76 Respiratory Rate 21 H Blood Pressure 128/62 Pulse Oximetry 96 94 Oxygen Delivery Nasal Cannula Oxygen Flow Rate 2 03/29/25 00:00 03/29/25 00:36 03/29/25 00:48 Temperature Pulse Rate 69 89 83 Respiratory Rate 20 20 Blood Pressure Pulse Oximetry Oxygen Delivery Oxygen Flow Rate 03/29/25 02:00 03/29/25 03:55 03/29/25 04:00 Temperature 98.1 F Pulse Rate 70 78 Respiratory Rate 20 Blood Pressure 116/48 L Pulse Oximetry 95 95 Oxygen Delivery Nasal Cannula Oxygen Flow Rate 2 03/29/25 04:00 03/29/25 04:29 03/29/25 04:35 Temperature Pulse Rate 74 70 75 Respiratory Rate 18 18 Blood Pressure Pulse Oximetry Oxygen Delivery Oxygen Flow Rate 03/29/25 06:00 03/29/25 07:58 03/29/25 08:00 Temperature 97.7 F Pulse Rate 68 91 101 H Respiratory Rate 21 H Blood Pressure 130/62 Pulse Oximetry 97 95 Oxygen Delivery Nasal Cannula Oxygen Flow Rate 2 03/29/25 08:00 03/29/25 08:08 03/29/25 08:13 Temperature Pulse Rate 113 H 108 H Respiratory Rate 18 Blood Pressure Pulse Oximetry 94 Oxygen Delivery Nasal Cannula Oxygen Flow Rate 2 03/29/25 08:19 03/29/25 10:00 03/29/25 11:19 Temperature Pulse Rate 101 H 98 98 Respiratory Rate 18 20 Blood Pressure Pulse Oximetry Oxygen Delivery Oxygen Flow Rate 03/29/25 11:25 03/29/25 12:00 03/29/25 12:00 Temperature 98.2 F Pulse Rate 100 107 H 100 Respiratory Rate 20 22 H Blood Pressure 143/69 H Pulse Oximetry 94 94 Oxygen Delivery Nasal Cannula Oxygen Flow Rate 2 03/29/25 12:00 03/29/25 14:00 03/29/25 15:05 Temperature Pulse Rate 95 95 86 Respiratory Rate 18 Blood Pressure Pulse Oximetry Oxygen Delivery Oxygen Flow Rate 03/29/25 15:15 03/29/25 15:38 03/29/25 16:00 Temperature 98.3 F Pulse Rate 86 89 87 Respiratory Rate 18 22 H Blood Pressure 140/71 Pulse Oximetry 90 92 Oxygen Delivery Nasal Cannula Oxygen Flow Rate 2 Intake/Output Intake/Output: Intake & Output 03/26/25 03/27/25 03/28/25 03/29/25 23:59 23:59 23:59 23:59 Intake Total 6615 117 5965 1270 Output Total 300 1000 Balance 840 276 845 8032 Meds/Results Medications: Active Medications Generic Name Dose Route Start Last Admin Trade Name Freq PRN Reason Stop Dose Admin Acetaminophen 325 mg 03/26/25 09:21 Acetaminophen 325 Mg Tablet PO Q6H PRN Mild Pain (1-3) or Fever Aspirin 81 mg 03/26/25 15:37 Aspirin 81 Mg Enteric Tablet PO DAILY PRN joint pain Docusate Sodium 100 mg 03/26/25 15:37 03/29/25 09:19 Docusate Sodium 100 Mg Capsule PO 100 mg DAILY PRN Administration Constipation Heparin Sodium (Porcine) 5,000 units 03/26/25 21:00 03/29/25 09:21 Heparin Sodium 5,000 Units/Ml Vial SUB-Q Not Given Q12HR KORIN Ceftriaxone Sodium 1 gm/ 50 mls @ 100 mls/hr 03/26/25 09:00 03/29/25 09:21 Sodium Chloride IVPB 04/01/25 09:29 100 mls/hr Q24H KORIN Administration Azithromycin 500 mg/ Sodium 250 mls @ 250 mls/hr 03/29/25 09:00 03/29/25 09:19 Chloride IVPB 03/30/25 09:59 250 mls/hr QAM KORIN Administration Ipratropium [place] 0.5 mg 03/27/25 16:00 03/29/25 15:05 Ipratropium Br 0.02% Inh Soln 0.5 Mg/2.5 Ml Vial INHALATION 0.5 mg Q4HRT KORIN Administration Levalbuterol HCl 1.25 mg 03/27/25 16:00 03/29/25 15:05 Levalbuterol Neb 1.25 Mg/3 Ml INHALATION 1.25 mg Q8HRT KORIN Administration Methylprednisolone Sodium Succinate 20 mg 03/27/25 18:00 03/29/25 12:44 Methylprednisolone Sod Succ 40 Mg Vial IV PUSH 20 mg Q6HR KORIN Administration Pantoprazole Sodium 40 mg 03/26/25 09:00 03/29/25 09:19 Pantoprazole 40 Mg Tablet PO 40 mg Q12HR KORIN Administration Radiology Results: ITS Impressions Abdomen/Pelvis CT 03/26/25 08:52 IMPRESSION: 1. Findings suggestive of gastritis. 2. Right lower lobe consolidation. Abdomen/Pelvis CTA 03/26/25 09:09 IMPRESSION: 1. Extensive atherosclerotic disease with a couple small penetrating atherosclerotic ulcers along the infrarenal abdominal aorta as well as along the bilateral common and internal iliac arteries. 2. Moderate stenosis at the right external iliac and proximal left femoral arteries. 3. Large right hydrocele. Chest X-Ray 03/27/25 12:19 IMPRESSION: Diffuse interstitial thickening in the left lung. Bilateral pulmonary vascular congestion. Bilateral perihilar bronchial wall thickening. Findings can represent CHF versus pneumonia in appropriate clinical settings.. Findings can represent pneumonia in appropriate clinical settings. Clinical correlation is recommended. Short-term follow-up chest radiograph is recommended after appropriate clinical therapy to document stability and/or resolution. Labs Labs: Laboratory Results - last 24 hr 03/27/25 03/28/25 03/29/25 10:27 03:55 03:49 WBC 11.4 H RBC 3.80 L Hgb 11.4 L Hct 36.1 L MCV 95.0 MCH 30.0 MCHC 31.6 L RDW 14.0 Plt Count 174 MPV 10.0 Immature Gran % (Auto) 1.2 H Neut % (Auto) 92.3 H Lymph % (Auto) 3.5 L [place] % (Auto) 3.0 Eos % (Auto) 0.0 Baso % (Auto) 0.0 L Lymph # (Auto) 0.40 L [place] # (Auto) 0.3 Eos # (Auto) 0.0 Baso # (Auto) 0.0 Abs Immat Gran (auto) 0.14 H Absolute Neuts (auto) 10.5 H Absolute Nucleated RBC 0.000 Nucleated RBC % 0.0 Sodium 136 L Potassium 4.6 Chloride 102 Carbon Dioxide 35 H Anion Gap -1 L BUN 57 H Creatinine 0.91 Estim Creat Clear Calc 47 Estimated GFR > 60 Glucose 120 H Calcium 9.4 Magnesium 2.3 Total Bilirubin 0.2 AST 45 ALT 28 Alkaline Phosphatase 58 Total Protein 5.8 L Albumin 3.5 [id number] 149 Chlamy pneumoniae PCR Not detected Adenovirus (PCR) Not detected B. pertussis DNA (PCR) Not detected B.parapertussis DNA PCR Not detected Coronavirus OC43 (PCR) Not detected Coronavirus HKU1 (PCR) Not detected Coronavirus 229E (PCR) Not detected Coronavirus NL63 (PCR) Not detected Human Metapneumovir PCR Not detected Influenza A (H1) PCR Not detected Influ A (H1/09) PCR Not detected Influenza A (H3) PCR Not detected Influenza Type A (PCR) Not detected Influenza Type B (PCR) Not detected M. pneumoniae (PCR) Not detected Parainfluenza 1 (PCR) Not detected Parainfluenza 2 (PCR) Not detected Parainfluenza 3 (PCR) Not detected Parainfluenza 4 (PCR) Not detected RSV (PCR) Not detected Entero/Rhino (PCR) Not detected SARS-CoV-2 (PCR) Not detected Quality VTE Prophylaxis VTE prophylaxis: pharmacologic ordered
[2025-03-29] MEDS: NYSTATIN 100,000 UNITS/ML SUSP 5 ML ORAL.SUSP PO (21:35)
[2025-03-30] VITALS (21 sets, daily range): BP systolic 106–142; BP diastolic 55–75; PULSE 66–121; RESP 18–21; TEMP 36.7–36.9; O2SAT 94–99
[2025-03-30] MEDS: IPRATROPIUM BR 0.02% INH SOLN 0.5 MG/2.5 ML VIAL INHALATION ×4 (00:08→12:12)
[2025-03-30] MEDS: DOCUSATE SODIUM 100 MG CAPSULE PO (08:34)
[2025-03-30] MEDS: PANTOPRAZOLE 40 MG TABLET PO (08:34)
[2025-03-30] MEDS: NYSTATIN 100,000 UNITS/ML SUSP 5 ML ORAL.SUSP PO ×2 (08:34→12:57)
[2025-03-30] MEDS: cefTRIAXone 1 GM in SODIUM CHLORIDE 0.9% IV 50 ML 100 ML IVPB (09:00)
--- NOTE | 2025-03-30 12:59 | P.DS_ITS ---
DS: Admitting Diagnosis Discharge Date 03/30/25 Admitting Diagnosis SOB DS: Discharge Diagnosis Discharge Diagnosis (1) Acute and chronic respiratory failure with hypoxia: Code(s): J96.21 - Acute and chronic respiratory failure with hypoxia Status: Acute (2) COPD with acute exacerbation: Code(s): J44.1 - Chronic obstructive pulmonary disease with (acute) exacerbation Status: Acute DS: Summary Hospital Course Hospital Course: 79-year-old male with history of COPD, chronic hypoxic respiratory failure on 2 L nasal cannula baseline, hypertension, GERD presents to the emergency department for difficulty breathing for the past [address] abdomen pelvis/chest suggestive of right lower lobe consolidation, gastritis. Tested negative for influenza a, COVID, RSV, urine strep, Legionella antigen 1. Acute on chronic respiratory failure: Admit to telemetry medicine Continue with O2 support COntinue Home bronchodilators completed 4 days of Steroid, discharged on one more day as discussed with Pulmonology Obtain blood culture Completed 4 dayd of azithromycin, ceftriaxone, discharge on 3 more days of Levaquin ECHO showed abnormal diastolic function adn PASP 47mmHg Tobacco cessation counseling Patient back to baseline oxygen requirement Discharged home with hospice 2. Atherosclerotic disease: Denies abdominal pain Ulcerated atherosclerotic disease on CT abdomen Will benefit from vascular surgery referral as an outpatient LDL 71 Will consult with vascular surgery prior to discharge 3. Gastritis: on PPI 4. Code status: Do not resuscitate 5. Pre diabetes: Monitor for hyperglycemia in setting of steroid use SVT ECHO and EKG reviewed resolved, s/p Adenosine maintain K 4.8 and Mg 2.2 F/u with PCP in 3-5 days F/u with hospice care Time Spent with Patient Time attestation: Total time spent providing and/or coordinating discharge services: DS: Data Data Completed and Pending Labs on day of discharge: Preliminary micro results at discharge 03/26/25 10:29 Blood Culture - Preliminary Blood 03/26/25 10:18 Blood Culture - Preliminary Blood Discharge Plan Discharge Attending physician on discharge: Cynthia Carrasco Consulting providers: Jass Scott; Livan Grande; Edward Reilly Discharging Clinician: Cynthia Carrasco Anticipated Discharge Date/Time: 03/30/25 12:57 Patient Disposition: Hospice - Home Activity: as tolerated Diet: as tolerated and regular Patient Instructions: How to Stop Smoking (GEN) Patient Language: Faroese Stand Alone Forms: General Discharge Information Follow-up/Referrals: Edward Reilly MD [Physician, Interventional Cardiology] Referral Note: F/u with cardiology as instructed Zachery Cuenca MD [Primary Care Provider, Family Practice] Referral Note: F/u with PCP in 3-5 days Livan Grande MD [Physician, Pulmonology] Referral Note: F/u with pulmonology as instructed Discharge Medications: New levofloxacin 750 mg tablet 750 mg PO DAILY 3 Days Qty: 3 0RF Continued (DME) nebulizer accessories Kit See Rx Instructions .ROUTE .MEDSUPPLY Qty: 1 0RF Rx Instructions: As directed albuterol sulfate 1.25 mg/3 mL solution for nebulization 1.25 mg inhalation Q6H PRN (Reason: shortness of breath or wheezing) Qty: 360 11RF Rx Instructions: USE ONLY NEEDED hydrochlorothiazide 25 mg tablet 25 mg PO DAILY Qty: 90 1RF famotidine [Pepcid AC] 20 mg tablet 20 mg PO DAILY (DME) Aerochamber Plus Flow-Vu Spacer See Rx Instructions .Route Qty: 10 0RF Rx Instructions: use As directed docusate sodium [Col-Rite] 100 mg capsule 100 mg PO DAILY PRN (Reason: constipation) aspirin [Adult Aspirin Regimen] 81 mg tablet,delayed release (DR/EC) 81 mg PO DAILY PRN (Reason: joint pain) albuterol sulfate 90 mcg/actuation HFA aerosol inhaler 1 - 2 puff inhalation Q6H PRN (Reason: shortness of breath or wheezing) Qty: 8.5 2RF Rx Instructions: USE ONLY NEEDED Trelegy Ellipta 100-62.5-25 mcg blister with device See Rx Instructions .ROUTE .COMPLEX Qty: 60 11RF Dose Instruction: INHALE 1 PUFF BY MOUTH EVERY 24 HOURS. RINSE AND SPIT AFTER EACH USE Rx Instructions: INHALE 1 PUFF BY MOUTH EVERY 24 HOURS. RINSE AND SPIT AFTER EACH USE Date of admission: 03/26/25 05:29 Primary Care Provider: Zachery Cuenca Admitting Provider: Cynthia Carrasco Attending physician on admission: Cynthia Carrasco Condition: Stable
== END 2025-03-30 14:15 | disposition hospice, home (50) | DRG 193 ==
LOC: ANHED 04:46 → ANH3MEDSUR 05:40 → ANHIMU 03-27 12:45
PROVIDERS: Internal Medicine; Internal Medicine Pulmonary Disease; Student in an Organized Health Care Education/Training Program; Admitting Provider Internal Medicine; Emergency Provider Physician Assistant; PCP Family Medicine; Visit Provider Internal Medicine
DX: J18.9 Pneumonia, unspecified organism (principal); E43 Unspecified severe protein-calorie malnutrition; J96.21 Acute and chronic respiratory failure with hypoxia; J44.0 Chronic obstructive pulmonary disease with (acute) lower respiratory infection; Z68.1 Body mass index [BMI] 19.9 or less, adult; J44.1 Chronic obstructive pulmonary disease with (acute) exacerbation; I47.10 Supraventricular tachycardia, unspecified; K21.9 Gastro-esophageal reflux disease without esophagitis; I10 Essential (primary) hypertension; K29.70 Gastritis, unspecified, without bleeding; N43.3 Hydrocele, unspecified; I34.1 Nonrheumatic mitral (valve) prolapse; F17.210 Nicotine dependence, cigarettes, uncomplicated; R73.03 Prediabetes; K42.9 Umbilical hernia without obstruction or gangrene; Z66 Do not resuscitate; Z20.822 Contact with and (suspected) exposure to COVID-19; Z86.16 Personal history of COVID-19; Z87.442 Personal history of urinary calculi; Z99.81 Dependence on supplemental oxygen
CPT/HCPCS: 36415; 36600; 71045; 71046; 74174; 74177; 80048; 80053; 80061; 82103; 82104; 82805; 82948; 83605; 83690; 83735; 83880; 84145; 84484; 85018; 85025; 85380; 85610; 85730; 86140; 86738; 87040; 87449; 87637; 87899; 93005; 93306; 94640; 94667; 94668; 96365; 96375; 99285; A9270; J0153; J0456; J0616; J0696; J1644; J1938; J2250; J2919; J3475; J3480; J7040; J7050; Q9967